=== PATIENT | male | born 1955 | race Caucasian/White ===

== ENCOUNTER 2018-11-08 18:10 | Emergency (ER) | payer BC ==
[2018-11-08 18:21] VITALS: RESP 18
[2018-11-08] MEDS ORDERED: DIPH,PERTUS(ACELL)TETVAC-LF 0.5 ML VIAL IM ONE (18:57)
[2018-11-08] MEDS ORDERED: LIDOCAINE 1% INJ 10MG/ML (20 ML MDV) SQ ONE (18:57)
--- NOTE | 2018-11-08 19:01 | ED ---
Wound/Laceration HPI - General Chief Complaint: Wound/Laceration Stated Complaint: rt hand laceration Time Seen by Provider: 11/08/18 18:43 Source: patient Mode of arrival: ambulatory Limitations: no limitations - History of Present Illness Initial Comments: 63-year-old male patient presents to the emergency department today for evaluation of laceration to the right palm. Patient states he was pushing down trash in his recycle than when he cut his hand on a broken bulb. This occurred around 6 PM. Patient states he was having difficulty getting the bleeding to stop however this did cease after holding pressure. He denies any numbness or tingling to the hand. Denies any difficulty with range of motion to the fingers or wrist. Denies any use of anticoagulant or antiplatelet medications. Please his last tetanus vaccine was 6-7 years ago. Patient denies any headache, neck pain, back pain, chest pain, shortness of breath, dizziness, weakness, abdominal pain, nausea, vomiting, or difficulties with bowel movements or urination. - Related Data Allergies Allergy/AdvReac Type Severity Reaction Status Date / Time No Known Allergies Allergy Verified 11/08/18 18:20 Review of Systems ROS Statement: Those systems with pertinent positive or pertinent negative responses have been documented in the HPI. ROS Other: All systems not noted in ROS Statement are negative. Past Medical History Past Medical History: Hypertension History of Any Multi-Drug Resistant Organisms: None Reported Past Surgical History: Orthopedic Surgery Past Psychological History: No Psychological Hx Reported Smoking Status: Never smoker Past Alcohol Use History: Occasional Past Drug Use History: None Reported General Exam Limitations: no limitations General appearance: alert, in no apparent distress, other (This is a well- developed, well-nourished adult male patient in no acute distress. Vital signs upon presentation are temperature 98.4F, pulse 66, respirations 18, blood pressure 129/80, pulse ox 99% on room air.) Respiratory exam: Present: normal lung sounds bilaterally. Absent: respiratory distress, wheezes, rales, rhonchi, stridor Cardiovascular Exam: Present: regular rate, normal rhythm, normal heart sounds. Absent: systolic murmur, diastolic murmur, rubs, gallop, clicks Extremities exam: Present: full ROM, normal capillary refill, other (Patient has 5 cm laceration noted over the hyperthenar eminence on the right hand. Bleeding is controlled. No evidence for foreign body. Skin is pink, warm, dry. Cap refills less than 3 seconds. Radial pulses 2+ and equal bilaterally.). Absent: normal inspection, tenderness, pedal edema, joint swelling, calf tenderness Neurological exam: Present: alert, oriented X3, CN II-XII intact Psychiatric exam: Present: normal affect, normal mood Skin exam: Present: warm, dry, intact, normal color. Absent: rash Course Vital Signs 11/08/18 11/08/18 18:18 19:50 Temperature 98.4 F 98.3 F Pulse Rate 66 71 Respiratory 18 18 Rate Blood Pressure 129/80 123/56 O2 Sat by Pulse 99 99 Oximetry Procedures - Laceration Laceration #1 Consent Obtained: verbal consent Indication: laceration Site: hand (Right) Size (cm): 5 Description: linear Depth: simple, single layer Anesthetic Used: lidocaine 1% Anesthesia Technique: local infiltration Amount (mls): 6 Pre-repair: irrigated extensively Type of Sutures: nylon Size of Sutures: 5-0 Number of Sutures: 9 Technique: simple, interrupted Patient Tolerated Procedure: well, no complications Medical Decision Making - Medical Decision Making 63-year-old male patient presents to the emergency department today for evaluation of laceration to the right hand. Physical examination did reveal 5 cm laceration to the hyperthenar eminence. Wound was cleansed, irrigated. Repaired as documented. Bacitracin and dressing applied. Patient is instructed to return in 7 days for suture removal. Education was given regarding wound care and signs of infection. He is instructed to follow-up with his primary care physician for recheck in 1-2 days. Return parameters were discussed in detail. He verbalizes understanding and agrees with this plan. Disposition Clinical Impression: Laceration of right hand Disposition: HOME SELF-CARE Condition: Good Instructions (If sedation given, give patient instructions): Care For Your Stitches (ED), Laceration (ED) Additional Instructions: Cleanse wound twice daily with warm water and antibacterial soap. Do not submerge in water. Monitor for signs or symptoms of infection including but not limited to redness, swelling, drainage of pus, fever, or chills. Return to the emergency department in 7 days to have your stitches removed. Follow-up with your primary care physician for recheck in 1-2 days. Return to the emergency department for any other new, worsening, or concerning symptoms. Is patient prescribed a controlled substance at d/c from ED?: No Referrals: Landry White MD [Primary Care Provider] - 1-2 days Time of Disposition: 19:38
[2018-11-08 20:39] VITALS: BP 123/56; PULSE 71; TEMP 98.3
== END 2018-11-08 19:50 | disposition home or self-care (01) ==
LOC: EC 18:10
DX: S61.411A Laceration without foreign body of right hand, initial encounter (principal); Z23 Encounter for immunization; W26.8XXA Contact with other sharp object(s), not elsewhere classified, initial encounter; Y93.89 Activity, other specified; Y92.009 Unspecified place in unspecified non-institutional (private) residence as the place of occurrence of the external cause
CPT/HCPCS: 90715; 99282; 12002; 90471; J2001

== ENCOUNTER → 2021-09-21 | Outpatient (CLI) | payer BC ==
--- NOTE | 2021-09-21 14:40 | P.SLEEP ---
History of Present Illness DATE: 09/21/2021 CONSULTATION/NEW PATIENT EVALUATION HISTORY OF PRESENT ILLNESS/SLEEP-WAKE EVALUATION: 66year old gentleman had been evaluated in the sleep center for obstructive sleep apnea hypopnea syndrome. Patient has history of obstructive sleep apnea which was diagnosed in 2010 in our institution. Since that time patient is on treatment with CPAP and he continued treatment every night for the whole night. I checked his CPAP unit CPAP pressure is 8 cm of water uses his 100% of 9 nights for more than 4 hours. Average usage 7.6 hours per night, Lasix 32 L/m slightly high. Apnea-hypopnea index is 1.7 which is normal. Previously so patient in December 2014 SLEEP SCHEDULE: Usually sleep schedule on weekdays 10 PM to 5 AM, during days off 10 PM to 7 AM. FALLING ASLEEP: No problems with falling asleep, although patient has TV set and bedroom. DURING SLEEP: Patient usually sleeps on the back position. No snoring with CPAP. He may wake up from sleep up to 2 times with nocturia. No history of hypnogogical hallucinations, sleep paralysis, or cataplexy. DURING THE DAY/WAKE STATE: No sleepiness during the day. [place] sleepiness scale is 1. Patient doesn't take naps. PAST MEDICAL HISTORY: Episodes of increasing blood pressure PAST SURGICAL HISTORY: Right hip replacement, history of hernia repair , Arthroscopic knee surgery MEDICATIONS: Triamterenehydrochlorothiazide SOCIAL HISTORY: Negative for smoking, alcohol consumption occasional. FAMILY HISTORY: Sinus headaches REVIEW OF SYSTEMS: Occasional awakenings from sleep. No fevers. No double vision. No recent chest pain. No shortness of breath. No abdominal pain. No bleeding episodes. No blood in urine. No seizure episodes. PHYSICAL EXAMINATION: GENERAL: A pleasant patient without any distress. VITAL SIGNS: BP 142/86, HR 92, RR 16, weight 223.2 pounds, height 6 foot 4 inches, body mass index 27.1. HEENT: PERRLA, EOMI. Evaluation of oropharynx showed tongue protrudes midline, low position of soft palate Mallampati 4. NECK: Supple. No JVD. Thyroid is not palpable. 18-1/4 inches in circumference. LUNGS: Clear to percussion and to auscultation. Good air exchange. No wheezing or rhonchi. HEART: S1, S2 regular. No murmurs, gallops or rubs. ABDOMEN: Soft and nontender. Bowel sounds are present. No organomegaly appreciated. EXTREMITIES: No clubbing or cyanosis. BREAK OUT WORKER: Awake, alert, and oriented x3. Cranial nerves 2 to 7 intact. There is no fasciculation or atrophy noted. No focal deficits observed. ASSESSMENT: 1. Obstructive sleep apnea-hypopnea syndrome for more than 10 years patient demonstrated great compliance with treatment. Normal respiration on CPAP. 2. Status post right hip replacement. 3 status post hernia repair. 4. Status post arthroscopic knee surgery. 5 slightly increasing blood pressure. PLAN: 1. Patient will continue to use CPAP every night for the whole night. 2. Prescription for CPAP supplies including nasal pillow mask, tube, filters. 3. Preferable position during sleep on the side. 4. No driving if patient feels any sleepiness. Patient is aware of civil and criminal liability for unsafe driving. 5. Sleep hygiene with regular sleep time for at least 7.5-8 hours. 6. Watching weight. 7. Follow-up visit in 6 months Thank you very much for allowing me to participate in management of your patient Sincerely, Eliud Campoverde MD, PhD, FAASM. Diplomat of [place] [employer], Sleep Medicine Board by [place] [employer] [place] [employer] Supervisor of [facility] [place] Past Medical History Past Medical History: Hypertension History of Any Multi-Drug Resistant Organisms: None Reported Past Surgical History: Orthopedic Surgery Past Psychological History: No Psychological Hx Reported Past Alcohol Use History: Occasional Past Drug Use History: None Reported Medications and Allergies Allergies Allergy/AdvReac Type Severity Reaction Status Date / Time No Known Allergies Allergy Verified 11/08/18 18:20 Sleep Note - Sleep Note Sleep Note: Temperature: Pulse Rate: Respiratory Rate: Blood Pressure: SpO2: Height: Weight: BMI: Neck Circumference:
== END | disposition home or self-care (01) ==
LOC: SLEEP 13:16
PROVIDERS: ATTEND Internal Medicine
DX: Z53.9 Procedure and treatment not carried out, unspecified reason (principal)

== ENCOUNTER → 2022-01-12 | Outpatient (CLI) | payer BC ==
[2022-01-12 11:31] LABS: Partial Thromboplastin Time 26.1 sec (22.0-30.0); Prothrombin Time 10.6 sec (9.0-12.0)
--- NOTE | 2022-01-12 12:18 | XR ---
EXAMINATION TYPE: XR chest 2V DATE OF EXAM: 01/12/2022 COMPARISON: NONE HISTORY: Shortness of breath TECHNIQUE: Frontal and lateral views of the chest are obtained. FINDINGS: Scattered senescent parenchymal changes noted. Hyperinflation compatible with COPD. No evidence for infiltrate. No evidence for atelectasis. Heart size is stable. Mediastinal structures are stable and grossly unremarkable. No evidence for hilar prominence. Degenerative changes dorsal spine. IMPRESSION: 1. No evidence for acute pulmonary disease.
--- NOTE | 2022-01-12 13:52 | P.PN ---
Progress Note - Text Progress Note Date: 01/12/22 5 meter walk test completed without difficulty: #1 3.47 sec #2 3.0 sec #3 3.13 sec STS risk score was calculated and discussed with patient
[2022-01-12 14:16] LABS: HCT 44.9 % (39.6-50.0); HGB 14.8 g/dL (13.0-17.0); MCH 29.5 pg (27.0-32.0); MCV 89.4 fL (80.0-97.0); Mean Platelet Volume 10.9 fL (9.5-12.2); NRBC Per 100 WBC 0 /100 WBCS (0.0-0.0); Platelet Count 222 X 10*3/uL (140-440); RBC 5.02 X 10*6/uL (4.40-5.60); RDW 11.9 % (11.5-14.5); WBC 6.44 X 10*3/uL (4.50-10.00)
[2022-01-12 14:32] LABS: ALT 28 U/L (10-49); AST 29 U/L (14-35); African American GFR (CKD) 80.6 (60.0-200.0); Albumin 4.6 g/dL (3.8-4.9); Alkaline Phosphatase 71 U/L (41-126); BUN/Creat Ratio 21.91 Ratio (12.00-20.00); Blood Urea Nitrogen 24.1 mg/dL (9.0-27.0); Carbon Dioxide 27.7 mmol/L (20.0-27.5); Chloride 105 mmol/L (96-109); Chol/HDL Ratio 2.66 Ratio; Globulin 2.7 g/dL (1.6-3.3); Glucose 99 mg/dL (70-110); LDL Cholesterol,Calculated 41.1 mg/dL (0.0-131.0); Non-African American GFR(CKD) 69.6 (60.0-200.0); Potassium 4.4 mmol/L (3.5-5.5); Sodium 144 mmol/L (135-145); Total Protein 7.3 g/dL (6.2-8.2)
[2022-01-12 14:57] LABS: Hepatitis A Antibody IgM Nonreactive (Nonreactive); Hepatitis B Core IgM Nonreactive (Nonreactive); Hepatitis B Surface Antigen Nonreactive (Nonreactive); Hepatitis C IgG Antibody Nonreactive (Nonreactive)
--- NOTE | 2022-01-15 22:58 | US ---
EXAMINATION TYPE: US vein mapping BILAT DATE OF EXAM: 01/12/2022 11:48 AM COMPARISON: NONE CLINICAL HISTORY: Preopen heart surgery. SIDE PERFORMED: Bilateral TECHNIQUE: Lower extremity saphenous vein is examined and measured utilizing real time linear array sonography. DUPLEX FINDINGS: Greater Saphenous: Color flow seen Measurements in mm: Right Greater Saphenous: Groin: 4.8 x 4.1 mm High Thigh: 5.3 x 4.4 mm Mid Thigh: 7.1 x 5.4 mm Above Knee: 6.1 x 4.1 mm Knee: 6.8 x 3.9 mm Below Knee: 7.0 x 4.8 mm Mid Calf: 5.1 x 3.3 mm At Ankle: 4.6 x 3.5 mm Left Greater Saphenous: Groin: 5.0 x 5.1 mm High Thigh: 5.9 x 3.7 mm Mid Thigh: 4.1 x 2.9 mm Above Knee: 3.7 x 2.2 mm Knee: 4.2 x 2.5 mm Below Knee: 3.2 x 2.6 mm Mid Calf: 3.7 x 2.5 mm At Ankle: 4.2 x 2.5 mm IMPRESSION: 1. Bilateral GSV measurements listed above. 2. Performing surgeon to determine viability as conduit.
--- NOTE | 2022-01-15 22:59 | US ---
EXAMINATION TYPE: Pre-Operative Non-Invasive Evaluation of the hand for Potential Radial Artery Jose kearney, Measurements only DATE OF EXAM: 01/12/2022 11:48 AM CLINICAL HISTORY: OPEN HEART. Preopen heart surgery SIDE PERFORMED: Bilateral TECHNIQUE: Radial artery is measured utilizing real time linear array sonography. Dominant hand: Duplex Findings: Radial Artery: Color flow seen Measurements in mm, transverse view: Right Radial: Proximal: 5.0 x 4.0 mm Mid: 3.8 x 3.3 mm Distal: 3.8 x 2.9 mm Left Radial: Proximal: 5.2 x 4.3 mm Mid: 2.3 x 2.2 mm Distal: 2.7 x 2.5 mm IMPRESSION: 1. Bilateral radial artery measurements listed above. 2. Performing surgeon to determine viability as conduit.
--- NOTE | 2022-01-16 11:00 | US ---
EXAMINATION TYPE: US arterial LE single level DATE OF EXAM: 01/12/2022 11:19 AM CLINICAL HISTORY: OPEN HEART. History of hypertension and hyperlipidemia. Ankle-Brachial Indices: Right: 1.20 Left: 1.25 Toe Brachial Indices: Right: 0.93 Left: 1.14 IMPRESSION: Normal VIMAL and TBI values.
== END | disposition home or self-care (01) ==
LOC: LABWHC1 08:55
PROVIDERS: ATTEND Thoracic Surgery (Cardiothoracic Vascular Surgery)
DX: I25.10 Atherosclerotic heart disease of native coronary artery without angina pectoris (principal)
CPT/HCPCS: 36415; 71046; 80053; 80061; 80074; 83036; 83735; 84443; 85027; 85610; 85730; 87070; 87086; 93922; 93930; 93970; 94150

== ENCOUNTER 2022-01-15 09:21 | Inpatient (IN) | payer BC ==
[~2022-01-15 09:21] MED LIST: ALBUMIN HUMAN 25% 50 ML IV ONE; ALBUMIN HUMAN 5% 500 ML IVPB ONE; ASPIRIN 325 MG TAB PO ONE; ATORVASTATIN 10 MG TAB PO ONE; CALCIUM CHLORIDE 100 MG/ML 10 ML SYRINGE IV ONE; CARDIOPLEGIC SOLN (K+ 16 MEQ/L 1,000 ML with SODIUM BICARB (1 MEQ/ML) 20 ML, LIDOCAINE ... PERFUSION ONE; CHLORHEXIDINE GLUCONATE 15 ML CUP MUCOUS MEM ONE; CLEVIDIPINE BUTYRATE 25 MG in EMPTY BAG 1 BAG IV ONE; DILTIAZEM 125 MG in SODIUM CHLORIDE 0.9% 100 ML IV ONE; HEPARIN SODIUM 1,000 UN/ML (10ML VL) IV ONE; HEPARIN SODIUM,PORCINE 5,000 UNIT in SODIUM CHLORIDE 0.9% 500 ML 500 ML IV ONE; INSULIN REGULAR 100 UNIT in SODIUM CHLORIDE 0.9% 100 ML IV ONE; LACTATED RINGERS 1,000 ML IV ONE; MAGNESIUM SULFATE 16.24 MEQ in EMPTY SYRINGE 1 SYR IV ONE; MANNITOL 25% 12.5 GM/50 ML VIAL IV ONE; METOPROLOL TARTRATE 12.5 MG TAB PO ONE; NITROGLYCERIN SL TABS 0.4 MG TAB SUBLINGUAL ONE; NITROGLYCERIN-D5W PMX 25 MG/250 ML BTL IV ONE; NITROGLYCERIN-D5W PMX 50 MG in DEXTROSE/WATER 1 250ML.BAG IV ONE; NOREPINEPHRINE 4 MG in SODIUM CHLORIDE 0.9% 250 ML IV ONE; PAPAVERINE 360 MG in SODIUM CHLORIDE 0.9% 90 ML IV ONE; PHENYLEPHRINE 10 MG/ML VIAL IV ONE; PHENYLEPHRINE 40 MG in SODIUM CHLORIDE 0.9% 250 ML IV ONE; PROTAMINE SULFATE 10 MG/ML 25 ML VIAL IV ONE; PROTAMINE SULFATE 250 MG in EMPTY BAG 1 BAG IV ONE; SODIUM BICARB 8.4% 50 ML SYR (1 MEQ/ML) IV ONE; SODIUM CHLORIDE 0.9% 1,000 ML IV ONE; TRANEXAMIC ACID 2,000 MG in SODIUM CHLORIDE 0.9% 80 ML IV ONE; ceFAZolin 1,000 MG in SODIUM CHLORIDE 0.9% IRRIGATIO 1,000 ML IRRIGATION ONE; propofoL 1,000 MG/100 ML VIAL IV ONE
[2022-01-15] MEDS ORDERED: LACTATED RINGERS 1,000 ML IV ONE (09:48)
--- NOTE | 2022-01-15 13:17 | P.ANPRN ---
Procedure Note - Anesthesia - Invasive Line Right Arterial Line Time Out Performed: Yes Date of Procedure: 01/15/22 Time of Procedure: 12:05 Location of Patient: PreOp Preparation: Sterile Prep, Sterile Dressing Arterial Line Location: Radial Ultrasound Used: Yes Purpose - Visualization and Identification of Vasculature: Yes Needle Guage: 20 Image Stored and Saved: Yes Narrative: Right radial arterial line placed using Seldinger technique. Right Central Line Time Out Performed: Yes Date of Procedure: 01/15/22 Time of Procedure: 11:55 Location of Patient: PreOp Preparation: Sterile Prep, Sterile Dressing Ultrasound Used: Yes Purpose - Visualization and Identification of Vasculature: Yes Needle Guage: 18 Image Stored and Saved: Yes Narrative: Central line placement per sterile protocol utilized. Right [place] Nita Time Out Performed: Yes Date of Procedure: 01/15/22 Time of Procedure: 12:05 Location of Patient: PreOp Preparation: Sterile Prep, Sterile Dressing Ultrasound Used: No Purpose - Visualization and Identification of Vasculature: No Narrative: [place] nita catheter placed after central line. All ports flushed and balloon tested. Catheter advanced until RV and PA waveform obtained. Balloon deflated and line secured @ 46 cm
[2022-01-15] MEDS ORDERED: VECURONIUM 10 MG VIAL IV ONE (13:58)
[2022-01-15] MEDS ORDERED: ceFAZolin 1,000 MG VIAL ONE (13:58)
[2022-01-15] MEDS ORDERED: ALBUMIN HUMAN 5% (25gm) 500 ML VIAL IVPB ONE (13:58)
[2022-01-15] MEDS ORDERED: ePHEDrine 50 MG/ML 1 ML VIAL ONE (13:58)
[2022-01-15] MEDS ORDERED: SODIUM CHLORIDE 0.9% IRRIG 1,000 ML BTL IRRIGATION ONE (13:58)
[2022-01-15] MEDS ORDERED: PROPOFOL 10 MG/ML 20 ML VIAL IV ONE (13:58)
[2022-01-15] MEDS ORDERED: GLYCOPYRROLATE 0.2 MG/ML 2 ML VIAL ONE (13:58)
[2022-01-15] MEDS ORDERED: MIDAZOLAM HCL 10 MG/10 ML VIAL ONE (13:58)
[2022-01-15] MEDS ORDERED: fentaNYL (PF) 50 MCG/ML 50 ML VIAL ONE (13:58)
[2022-01-15] MEDS ORDERED: SODIUM CHLORIDE 0.9% 100 ML BAG ONE (13:58)
[2022-01-15 14:49] LABS: ABG Base Excess 1.4 mmol/L; ABG Glucose Whole Blood 93 mg/dL (75-99); ABG HCO3 25 mmol/L (21-25); ABG Hematocrit 41 % (34.0-46.0); ABG Ionized Calcium 4.8 mg/dL (4.5-5.3); ABG Lactic Acid Whole Blood 0.8 mmol/L (0.5-1.6); ABG PCO2 35 mmHg (35-45); ABG PH 7.46 (7.35-7.45); ABG Potassium Whole Blood 3.7 mmol/L (3.4-4.5); ABG Sodium Whole Blood 140 mmol/L (135-146); ABG TCO2 26 mmol/L (19-24)
[2022-01-15] MEDS ORDERED: ceFAZolin 1,000 MG in SODIUM CHLORIDE 0.9% 1,000 ML IRRIGATION ONE (15:10)
[2022-01-15] MEDS ORDERED: SODIUM CHLORIDE 0.9% 500 ML 500 ML with HEPARIN SODIUM,PORCINE 5,000 UNIT IV ONE ×2 (15:10)
[2022-01-15] MEDS ORDERED: PAPAVERINE 360 MG in SODIUM CHLORIDE 0.9% 90 ML IV ONE (15:10)
[2022-01-15 15:41] LABS: ABG Base Excess 0.7 mmol/L; ABG Glucose Whole Blood 110 mg/dL (75-99); ABG HCO3 26 mmol/L (21-25); ABG Hematocrit 41 % (34.0-46.0); ABG Ionized Calcium 4.8 mg/dL (4.5-5.3); ABG Lactic Acid Whole Blood 0.8 mmol/L (0.5-1.6); ABG Oxygen Saturation 99.9 % (94-97); ABG PCO2 43 mmHg (35-45); ABG PH 7.39 (7.35-7.45); ABG Potassium Whole Blood 3.8 mmol/L (3.4-4.5); ABG Sodium Whole Blood 140 mmol/L (135-146); ABG TCO2 27 mmol/L (19-24)
[2022-01-15 16:36] LABS: ABG Base Excess -0.9 mmol/L; ABG Glucose Whole Blood 109 mg/dL (75-99); ABG HCO3 23 mmol/L (21-25); ABG Hematocrit 36 % (34.0-46.0); ABG Ionized Calcium 4.6 mg/dL (4.5-5.3); ABG Oxygen Saturation 99.7 % (94-97); ABG PCO2 36 mmHg (35-45); ABG PH 7.42 (7.35-7.45); ABG PO2 268 mmHg (83-108); ABG Potassium Whole Blood 3.6 mmol/L (3.4-4.5); ABG Sodium Whole Blood 141 mmol/L (135-146); ABG TCO2 24 mmol/L (19-24)
[2022-01-15 17:09] LABS: ABG Base Excess -1.1 mmol/L; ABG Glucose Whole Blood 108 mg/dL (75-99); ABG HCO3 23 mmol/L (21-25); ABG Hematocrit 32 % (34.0-46.0); ABG Ionized Calcium 4.5 mg/dL (4.5-5.3); ABG Lactic Acid Whole Blood 1.2 mmol/L (0.5-1.6); ABG Oxygen Saturation 99.5 % (94-97); ABG PCO2 35 mmHg (35-45); ABG PH 7.42 (7.35-7.45); ABG PO2 229 mmHg (83-108); ABG Potassium Whole Blood 3.6 mmol/L (3.4-4.5); ABG Sodium Whole Blood 141 mmol/L (135-146); ABG TCO2 24 mmol/L (19-24)
[2022-01-15 17:30] LABS: ABG PO2 >420 mmHg (83-108)
[2022-01-15 17:32] LABS: ABG PO2 >420 mmHg (83-108)
[2022-01-15] MEDS ORDERED: ALBUMIN HUMAN 5% 250 ML IVPB ONE (18:03)
--- NOTE | 2022-01-15 18:05 | P.ANPRN ---
Procedure Note - Anesthesia - MARIN Intraop Pre Bypass MARIN Intraop - Anesthesia Indication: CAD + MR Date of Procedure: 01/15/22 Pre-operative Diagnosis: CAD Post-operative Diagnosis: same Surgeon: Poli Watt Left Ventricle: EF 50% Regional Wall Motion Abnormalities: None Left Ventricle Hypertrophy: No R. Ventricle Function: Normal Anatomy: Trileaflet Aortic Stenosis: None Aortic Regurgitation: None Mitral Stenosis: None Mitral Regurgitation: Trace Tricuspid Stenosis: None Tricuspid Regurgitation: None Pulmonic Stenosis: None Pulmonic Regurgitation: None R. Atrial Dilation: No R. Atrial PFO: No L. Atrial Dilation: No Aortic Dissection: No Aortic Calcification: Mild Plural Effusion: None - MARIN Intraop Post Bypass MARIN Intraop Post Bypass Procedure Performed: CABG x 4 Left Ventricle: EF 60% Ejection Fraction: Normal Regional Wall Motion Abnormalities: None R. Ventricle Function: Normal Aortic Valve: Unchanged Mitral Valve: Unchanged Tricuspid: Unchanged Pulmonic: Unchanged Aortic Dissection: No
[2022-01-15] MEDS ORDERED: METOCLOPRAMIDE 5 MG/ML 2 ML VIAL IVP PRN (18:10)
[2022-01-15] MEDS ORDERED: NITROGLYCERIN-D5W PMX 50 MG in DEXTROSE/WATER 1 250ML.BAG IV SCH (18:10)
[2022-01-15] MEDS ORDERED: DEXTROSE 5% IN WATER 100 ML with AMIODARONE 150 MG IV PRN (18:10)
[2022-01-15] MEDS ORDERED: ONDANSETRON 4 MG/2 ML VIAL IVP PRN (18:10)
[2022-01-15] MEDS ORDERED: hydrALAZINE HCL 20 MG/ML 1 ML VIAL IVP PRN (18:10)
[2022-01-15] MEDS ORDERED: CLEVIDIPINE BUTYRATE 25 MG in EMPTY BAG 1 BAG IV SCH (18:10)
[2022-01-15] MEDS ORDERED: IPRATROPIUM-ALBUTEROL 3 ML NEB INHALATION PRN (18:10)
[2022-01-15] MEDS ORDERED: INSULIN REGULAR 100 UNIT in SODIUM CHLORIDE 0.9% 100 ML IV SCH (18:10)
[2022-01-15] MEDS ORDERED: DEXMEDETOMIDINE/0.9% NACL(PMX) 400 MCG in EMPTY BAG 1 BAG IV SCH (18:10)
[2022-01-15] MEDS ORDERED: Magnesium Replacement Protocol 1 EACH MISC MISCELLANE PRN (18:10)
[2022-01-15] MEDS ORDERED: BENZOCAINE/MENTHOL LOZENG 1 EACH LOZENGE MUCOUS MEM PRN (18:10)
[2022-01-15] MEDS ORDERED: DILTIAZEM 125 MG in SODIUM CHLORIDE 0.9% 100 ML IV SCH (18:10)
[2022-01-15] MEDS ORDERED: Potassium Replacement Protocol 1 EACH MISC MISCELLANE PRN (18:10)
[2022-01-15] MEDS ORDERED: DEXTROSE 50% SYRINGE 50 ML IVP PRN ×2 (18:10)
--- NOTE | 2022-01-15 18:21 | P.OP ---
Date of Procedure: 01/15/22 Preoperative Diagnosis: Coronary artery disease Postoperative Diagnosis: Same Procedure(s) Performed: Off-pump coronary artery bypass grafting 4 with SCHREIBER to LAD, left radial artery to obtuse marginal, SVG to first diagonal, SVG to the EEA with ligation on the left atrial appendage with a 35 mm AtriCure clip and endovascular vein harvest of the left greater saphenous vein, endovascular harvest of the left radial artery Implants: 35mm AtriCure clip Anesthesia: GETA Surgeon: Poli Watt Barrel Rifler Operator #1: Rene Stuart Estimated Blood Loss (ml): 400 IV fluids (ml): 1,500 Urine output (ml): 500 Pathology: none sent Condition: stable Disposition: ICU Indications for Procedure: 66-year-old male presents with anginal symptomatology positive stress testing. Underwent cardiac catheterization by Dr. Gilbert. This demonstrated severe three- vessel coronary artery disease and coronary bypass was requested. Patient was seen electively in the office and scheduled electively. Operative Findings: Coronary targets were reasonable. There was diffuse disease in the left system. Second obtuse marginal was small and diseased and really directly alongside the first obtuse marginal. Was decided to skip this graft. Second diagonal branch was very small. It was decided to skip this graft. LAD was grafted beyond the palpable disease after the takeoff of the second diagonal branch. MARIN demonstrated good ventricular function and normal valvular function both pre-and postoperatively. Description of Procedure: Patient was brought to the operating room, placed supine on the operating table, anesthetized and intubated. The anterior torso bilateral lower extremities and left upper extremity were sterilely prepped and draped. Left greater saphenous vein was harvested from the left thigh with endovascular technique. Left radial artery was harvested from the left forearm with endovascular technique. Simultaneously a midline sternotomy was performed. The left hemisternum was retracted upwards and the left internal mammary artery harvested on a vascularized pedicle. His left intact on its origin from the subclavian and divided distally. It was a good conduit. Left pleural space was drained with a 32-Tajik chest tube. Standard sternal retractor was placed. The pericardium was opened in the midline and the heart exposed with pericardial sutures. Patient was systemically heparinized and ACTs were maintained greater than 250 during grafting. 35mm AtriCure clip was applied to the base of the left atrial appendage. The SCHREIBER was tunneled into the pericardial space.. SCHREIBER was anastomosed to the mid LAD after the palpable disease. The LAD was stabilized and opened. Blood flow was controlled with a 1.5 mm flow through. It was a 1.75-2 mm vessel. End-to-side anastomosis between the SCHREIBER and the LAD was performed with running 8-0 Prolene suture. On completion anastomosis the flow through was removed effectively probing the proximal distal portion of the anastomosis. Inflow was open and good hemostasis was noted. The yu filled well and there was no kinking or narrowing. ZAIN pedicle was tacked surrounding epicardium with 6-0 silk. Next the first diagonal was stabilized and explored. It was opened and blood flow control with a 1.5 mm flow through. It was a 1.5 mm vessel. Saphenous vein was anastomosed in end-to-side fashion with running 7-0 Prolene suture. On completion of the anastomosis the flow through was removed effectively probing the proximal and distal portion of the anastomosis. Suture was tied with good resultant hemostasis. The vein was passed under the SCHREIBER and brought to the ascending aorta and cut to appropriate length. Backbleeding was controlled with a bulldog clamp. The inferior wall the heart was exposed. Posterior descending branch was stabilized and opened proximally. It was a 1.5 mm vessel. Blood flow was controlled 1.5 mm flow through. Anas tomosis of the second portion of saphenous vein to the PDA was performed with running 7-0 Prolene suture. On completion anastomosis the flow through was removed effectively probing the proximal distal portion anastomosis. Suture was tied with good resultant hemostasis. Good backbleeding was noted in the vein graft. Heart was lowered into anatomic position and vein cut to appropriate length to reach the ascending aorta. Backbleeding was controlled with bulldog clamp. Lateral wall the heart was now exposed. Major marginal branch was a 1.5-2 mm vessel with diffuse disease present. A soft spot was identified in its midportion. Was opened here and end-to-side anastomosis with the radial artery was performed with 7-0 Prolene suture. Blood flow was controlled by 1.5 mm flow through. On completion anastomosis the flow through was removed effectively probing the proximal distal portion of the anastomosis. Suture was tied with good resulttant hemostasis. Heart was lowered into anatomic position. Radial artery was brought beneath the SCHREIBER to the ascending aorta and cut to appropriate length. Blood pressure was controlled by anesthesia and a partial occlusion clamp was placed on the ascending aorta. 34 mm punch holes were created in the ascending aorta and 3 proximal anastomosis constructed with running 6-0 Prolene suture. On completion of the proximal anastomoses, they we re de-aired by backbleeding and needle holes and the inflow was open. Hemostasis was noted at all anastomoses. Heparin was reversed with protamine. Chest was irrigated with antibiotic solution. The mediastinum was drained with 36-Tajik chest tube. Sternum was closed with 8 sternal wires. Subcutaneous and subcuticular layers in the chest arm and leg were closed with layers of Vicryl suture. Dry sterile dressings were applied. Patient was transferred to the ICU in stable condition. No inotropic support or blood transfusions were required.
[2022-01-15] MEDS: LACTATED RINGERS 1,000 ML IV SCH (18:35)
[2022-01-15 18:38] LABS: Glucose,Whole Blood 118 mg/dL (70-110)
[2022-01-15] MEDS: ACETAMINOPHEN IV (For NPO) 1,000 MG in EMPTY BAG 1 BAG IVPB SCH (18:43)
[2022-01-15 19:05] LABS: Basophils % (A) 0 %; Eosinophils # (A) 0.1 k/uL (0-0.7); Eosinophils % (A) 1 %; HCT 29.5 % (39.0-53.0); HGB 10.3 gm/dL (13.0-17.5); Lymphocytes # (A) 1.1 k/uL (1.0-4.8); Lymphocytes % (A) 11 %; MCH 30.1 pg (25.0-35.0); MCHC 34.9 g/dL (31.0-37.0); MCV 86.2 fL (80.0-100.0); Monocytes # (A) 0.5 k/uL (0-1.0); Monocytes % (A) 4 %; Neutrophils # (A) 8.6 k/uL (1.3-7.7); Neutrophils % (A) 83 %; Platelet Count 144 k/uL (150-450); RBC 3.42 m/uL (4.30-5.90); RDW 12.2 % (11.5-15.5); WBC 10.4 k/uL (3.8-10.6)
[2022-01-15] MEDS: IPRATROPIUM-ALBUTEROL 3 ML NEB INHALATION SCH (19:07)
[2022-01-15 19:08] LABS: Glucose,Whole Blood 122 mg/dL (70-110)
--- NOTE | 2022-01-15 19:08 | XR ---
EXAMINATION TYPE: XR chest 1V portable DATE OF EXAM: 01/15/2022 6:49 PM COMPARISON: Chest radiographs from 01/12/2022 TECHNIQUE: XR chest 1V portable Portable AP radiograph of the chest. CLINICAL INDICATION:Male, 66 years old with history of Post Operative Cardiac Surgery; FINDINGS: Lungs/Pleura: There is no evidence of pleural effusion, focal consolidation, or pneumothorax. Pulmonary vascularity: Unremarkable. Heart/mediastinum: Cardiomediastinal silhouette is unremarkable. Left atrial appendage occlusion [place] ce is present. Musculoskeletal: No acute osseous pathology. Other findings: None Lines/Tubes: Endotracheal tube with distal tip 2.1 cm above the gloria Nasogastric tube with its distal tip and side-port projecting under the diaphragm. Left thoracotomy tube is present without evidence of pneumothorax. Drainage tubes with tips projecting over the mediastinum. There is a [place]-Nita catheter with tip projecting over the spine. IMPRESSION: Postsurgical changes lines and tubes as described above. No evidence of pneumothorax.
[2022-01-15 19:10] LABS: Ionized Calcium 4.8 mg/dL (4.5-5.3)
[2022-01-15 19:14] LABS: ABG Base Excess -1.8 mmol/L; ABG HCO3 24 mmol/L (21-25); ABG PCO2 47 mmHg (35-45); ABG PH 7.32 (7.35-7.45); ABG PO2 374 mmHg (83-108); ABG TCO2 26 mmol/L (19-24); Allen Test Performed? Yes
[2022-01-15 19:18] LABS: ALT 18 U/L (4-49); AST 23 U/L (17-59); African American GFR (CKD) >90 (>60 ml/min/1.73 sqM); Albumin 3.6 g/dL (3.5-5.0); Alkaline Phosphatase 42 U/L (38-126); Anion Gap 6 mmol/L; Blood Urea Nitrogen 22 mg/dL (9-20); Carbon Dioxide 23 mmol/L (22-30); Chloride 109 mmol/L (98-107); Glucose 109 mg/dL (74-99); Magnesium 1.5 mg/dL (1.6-2.3); Non-African American GFR(CKD) >90 (>60 ml/min/1.73 sqM); Potassium 3.6 mmol/L (3.5-5.1); Sodium 138 mmol/L (137-145); Total Protein 5.3 g/dL (6.3-8.2)
[2022-01-15 19:20] LABS: INR 1.2 (<1.2); Partial Thromboplastin Time 30.2 sec (22.0-30.0); Prothrombin Time 12.6 sec (9.0-12.0)
[2022-01-15] MEDS ORDERED: POTASSIUM CHLORIDE 20 MEQ in WATER FOR INJECTION 1 100ML.BAG IVPB STA (19:54)
[2022-01-15 19:56] LABS: Glucose,Whole Blood 144 mg/dL (70-110)
[2022-01-15] MEDS: MAGNESIUM SULFATE-D5W PMX 1 GM in DEXTROSE/WATER 1 100ML.BAG IVPB SCH ×2 (20:15→21:27)
[2022-01-15 21:02] LABS: Glucose,Whole Blood 155 mg/dL (70-110)
[2022-01-15 22:11] LABS: Glucose,Whole Blood 171 mg/dL (70-110)
[2022-01-15 22:24] LABS: Basophils % (A) 0 %; Eosinophils % (A) 0 %; HCT 29.7 % (39.0-53.0); HGB 10.5 gm/dL (13.0-17.5); Lymphocytes # (A) 0.8 k/uL (1.0-4.8); Lymphocytes % (A) 7 %; MCH 30.2 pg (25.0-35.0); MCHC 35.3 g/dL (31.0-37.0); MCV 85.7 fL (80.0-100.0); Mean Platelet Volume 9.8; Monocytes # (A) 0.6 k/uL (0-1.0); Monocytes % (A) 6 %; Neutrophils % (A) 85 %; Platelet Count 145 k/uL (150-450); RBC 3.47 m/uL (4.30-5.90); RDW 12.2 % (11.5-15.5); WBC 10.5 k/uL (3.8-10.6)
[2022-01-15 22:34] LABS: ABG Base Excess -0.9 mmol/L; ABG HCO3 24 mmol/L (21-25); ABG Oxygen Saturation 99.2 % (94-97); ABG PCO2 42 mmHg (35-45); ABG PH 7.37 (7.35-7.45); ABG PO2 119 mmHg (83-108); ABG TCO2 26 mmol/L (19-24); Allen Test Performed? Yes
[2022-01-15 22:54] LABS: Glucose,Whole Blood 149 mg/dL (70-110)
[2022-01-15 23:58] LABS: Glucose,Whole Blood 132 mg/dL (70-110)
[2022-01-16] MEDS: ACETAMINOPHEN IV (For NPO) 1,000 MG in EMPTY BAG 1 BAG IVPB SCH (00:07)
[2022-01-16] MEDS: HEPARIN SODIUM,PORCINE/PF 5,000 UNIT/0.5 ML SYRINGE SQ SCH ×3 (00:15→15:58)
[2022-01-16] MEDS: ATORVASTATIN 80 MG TAB PO SCH ×2 (00:15→21:28)
[2022-01-16 00:47] LABS: Basophils % (A) 0 %; Eosinophils % (A) 0 %; Lymphocytes # (A) 0.4 k/uL (1.0-4.8); Lymphocytes % (A) 4 %; MCH 31.3 pg (25.0-35.0); MCHC 36.5 g/dL (31.0-37.0); MCV 85.8 fL (80.0-100.0); Mean Platelet Volume 10.2; Monocytes # (A) 0.5 k/uL (0-1.0); Monocytes % (A) 6 %; Neutrophils # (A) 8.6 k/uL (1.3-7.7); Neutrophils % (A) 89 %; Platelet Count 153 k/uL (150-450); RDW 11.8 % (11.5-15.5); WBC 9.6 k/uL (3.8-10.6)
[2022-01-16 00:53] LABS: Glucose,Whole Blood 124 mg/dL (70-110)
[2022-01-16] MEDS: IPRATROPIUM-ALBUTEROL 3 ML NEB INHALATION SCH ×5 (00:59→20:44)
[2022-01-16 01:58] LABS: Glucose,Whole Blood 113 mg/dL (70-110)
[2022-01-16 03:04] LABS: Glucose,Whole Blood 128 mg/dL (70-110)
[2022-01-16 04:10] LABS: Glucose,Whole Blood 127 mg/dL (70-110)
[2022-01-16] MEDS: HYDROcodone/APAP 5-325MG 1 EACH TAB PO PRN ×2 (04:16→21:28)
[2022-01-16 05:05] LABS: Glucose,Whole Blood 116 mg/dL (70-110)
[2022-01-16 05:16] LABS: Basophils % (A) 0 %; Eosinophils % (A) 0 %; HCT 30.8 % (39.0-53.0); HGB 11.1 gm/dL (13.0-17.5); Lymphocytes # (A) 0.6 k/uL (1.0-4.8); Lymphocytes % (A) 7 %; MCHC 36.1 g/dL (31.0-37.0); MCV 85.8 fL (80.0-100.0); Mean Platelet Volume 10.2; Monocytes # (A) 0.6 k/uL (0-1.0); Monocytes % (A) 7 %; Neutrophils # (A) 8.2 k/uL (1.3-7.7); Neutrophils % (A) 86 %; Platelet Count 153 k/uL (150-450); RBC 3.59 m/uL (4.30-5.90); RDW 12.3 % (11.5-15.5); WBC 9.6 k/uL (3.8-10.6)
[2022-01-16 05:20] LABS: Ionized Calcium 4.9 mg/dL (4.5-5.3)
[2022-01-16 05:30] LABS: ALT 19 U/L (4-49); AST 29 U/L (17-59); African American GFR (CKD) >90 (>60 ml/min/1.73 sqM); Albumin 3.6 g/dL (3.5-5.0); Alkaline Phosphatase 41 U/L (38-126); Anion Gap 5 mmol/L; Blood Urea Nitrogen 21 mg/dL (9-20); Calcium 8.3 mg/dL (8.4-10.2); Carbon Dioxide 24 mmol/L (22-30); Chloride 106 mmol/L (98-107); Glucose 114 mg/dL (74-99); Magnesium 2.1 mg/dL (1.6-2.3); Non-African American GFR(CKD) >90 (>60 ml/min/1.73 sqM); Potassium 3.9 mmol/L (3.5-5.1); Sodium 135 mmol/L (137-145); Total Bilirubin 1.2 mg/dL (0.2-1.3); Total Protein 5.4 g/dL (6.3-8.2)
[2022-01-16] MEDS ORDERED: HYDROcodone/APAP 5-325MG 1 EACH TAB PO PRN (05:58)
[2022-01-16 05:59] LABS: Glucose,Whole Blood 108 mg/dL (70-110)
[2022-01-16] MEDS: ALBUMIN HUMAN 5% 250 ML in EMPTY BAG 1 BAG IVPB PRN ×2 (06:04→06:37)
[2022-01-16 06:13] LABS: Glucose,Whole Blood 123 mg/dL (70-110)
[2022-01-16] MEDS ORDERED: ACETAMINOPHEN TAB 325 MG TAB PO PRN (06:53)
[2022-01-16] MEDS ORDERED: POTASSIUM CHLORIDE ER 20 MEQ TAB.ER PO SCH ×2 (07:00→15:00)
--- NOTE | 2022-01-16 07:00 | XR ---
EXAMINATION TYPE: XR chest 1V portable DATE OF EXAM: 01/16/2022 5:42 AM COMPARISON: Chest radiographs from 01/15/2022. TECHNIQUE: XR chest 1V portable Frontal view of the chest. CLINICAL INDICATION:Male, 66 years old with history of Post Operative Cardiac Surgery; FINDINGS: Lungs/Pleura: There is no evidence of pleural effusion or pneumothorax. Left basilar atelectasis. Pulmonary vascularity: Unremarkable. Heart/mediastinum: Cardiomediastinal silhouette is enlarged and stable. Left atrial appendage occlus ion device is present. Musculoskeletal: No acute osseous pathology. Midline sternotomy wires are noted and stable. Lines/Tubes: Stable right IJ approach [place]-Nita catheter. Stable left thoracotomy tube. Stable mediastinal drainage tube. Interval removal of endotracheal and nasogastric tubes.. IMPRESSION: 1. Interval removal of endotracheal and nasogastric tubes. Stable remaining lines and tubes. 2. No pneumothorax. 3. Postsurgical changes.
[2022-01-16 07:04] LABS: Glucose,Whole Blood 122 mg/dL (70-110)
[2022-01-16 08:18] LABS: Glucose,Whole Blood 110 mg/dL (70-110)
[2022-01-16 08:42] VITALS: BMI 27.1
--- NOTE | 2022-01-16 08:58 | P.PN ---
Subjective Progress Note Date: 01/16/22 Principal diagnosis: Coronary artery disease. Previous medical history of hypertension, hyperlipidemia, arthritis, previous tobacco dependence, obstructive sleep apnea with home CPAP use, remote history of pneumonia, and family history of premature coronary artery disease with father diagnosed before the age of 60 POD #1 off-pump coronary artery bypass grafting 4 with left internal mammary artery to the left anterior descending artery, left radial artery to the obtuse marginal artery, reverse saphenous vein graft to the first diagonal artery, reverse saphenous vein graft to the posterior descending coronary artery, ligation of the left atrial appendage with a 35 mm AtriCure clip, endovascular vein harvest of the left greater saphenous vein and left radial artery. In traoperative transesophageal echocardiogram performed by anesthesia Postoperative acute blood loss anemia, expected given hemodilution The patient was seen and examined this morning sitting up in a recliner in the intensive care unit in no acute distress eating breakfast. He was successfully extubated last night at 22:38. Currently in sinus rhythm and hemodynamically stable on no inotropes or pressors. He was on IV nitro and Cardizem for vessel spasm prophylaxis. States pain is controlled on current medication regimen, denies shortness of breath. Currently on room air and achieving 1000 mL on his incentive spirometry. He had a relatively uneventful evening. Right internal jugular [place] says Cordis, right radial arterial line, mediastinal/left pleural chest tubes remain. No other new concerns. Objective - Vital Signs Vital signs: Vital Signs Temp 99.0 F 01/16/22 00:00 Pulse 87 01/16/22 07:23 Resp 22 01/16/22 07:00 BP 129/81 01/15/22 09:46 Pulse Ox 96 01/16/22 07:00 FiO2 40 01/15/22 21:49 Intake & Output 01/15/22 01/16/22 01/16/22 18:59 06:59 18:59 Intake Total 204 1981.123 629 Output Total 700 2085 45 Balance -496 -103.877 584 Weight 98.4 kg 100.9 kg Intake: IV 204 1368 89 ACETAMINOPHEN IV (For NPO 100 ) 1,000 mg In Empty Bag 1 bag @ 400 mls/hr IVPB Q6HR [facility] Rx#:[id number] Lactated Ringers 1,000 ml 600 50 @ 50 mls/hr IV .Q20H [facility] Rx#:[id number] Magnesium Sulfate-D5w Pmx 200 1 gm In Dextrose/Water 1 100ml.bag @ 100 mls/hr IVPB Q1H [facility] Rx#: [id number] NS Cardiac Calcs 210 30 NS Pressure Bag 108 9 Potassium Chloride 20 meq 100 In Water For Injection 1 100ml.bag @ 50 mls/hr IVPB ONCE [facility] Rx#: [id number] ceFAZolin 2 gm In Sodium 50 Chloride 0.9% 50 ml @ 100 mls/hr IVPB Q8HR [facility] Rx# :[id number] Intake, IV Titration 73.123 Amount Clevidipine Butyrate 25 6.667 mg In Empty Bag 1 bag @ 1 MG/HR 2 mls/hr IV .Q24H [facility] Rx#:[id number] Insulin Regular 100 unit 20.208 In Sodium Chloride 0.9% 100 ml @ Per Protocol IV .Q0M [facility] Rx#:[id number] propofoL 1,000 mg In 46.248 Empty Bag 1 bag @ Titrate IV .Q0M [facility] Rx#: [id number] Oral 540 540 Output: Chest Tube Drainage 950 0 MS and LP 950 0 Urine 200 1135 45 Estimated Blood Loss 500 Other: Voiding Method Indwelling Catheter ABP, PAP, CO, CI - Last Documented Arterial Blood Pressure 117/42 Pulmonary Artery Pressure 22/5 Cardiac Output 8.5 Cardiac Index 3.8 - Exam CONSTITUTIONAL: Appears comfortable, cooperative, no acute distress RESPIRATORY: Lungs sounds diminished bilaterally. Respirations even, nonlabo red. Currently on room air with oxygen saturation 97%. Able to achieve 1000 mL on incentive spirometry. Strong cough. CARDIOVASCULAR: S1, S2 present. Regular rate and rhythm, sinus rhythm on te lemetry. Sternum stable. Palpable peripheral pulses bilaterally. No edema present. No calf pain or tenderness noted. Heart hugger in place with patient demonstrating appropriate use. Antiembolism stockings, SCDs present. GASTROINTESTINAL: Abdomen soft, nontender, nondistended. Hypoactive bowel sounds present 4 quadrants. Tolerating clear liquid diet. Denies flatus GENITOURINARY: Lim present draining clear, yellow urine. Output overnight 60-130 mL per hour INTEGUMENTARY: Skin is warm and dry with evidence of good perfusion. Anterior chest incision well approximated and covered with dry intact dressing. Left lower extremity EVH site well approximated without redness or drainage. NEUROLOGIC: Cranial nerves II through XII intact MUSKULOSKELETAL: Able to move all extremities, strength equal bilaterally, gait normal PSYCHIATRIC: Alert and oriented to person place and time, appropriate affect, intact judgment and insight INVASIVE LINES AND TUBES: Mediastinal/left pleural chest tubes present and connected to wall suction, no air leaks present, 430 mL serosanguineous drainage overnight, 950 mL since surgery. Right internal jugular [place]ren/Cordis, right radial arterial line present. Last CO/CI 8.9/3.9, PA 17/5, CVP 8. - Allied health notes Allied health notes reviewed: nursing - Labs CBC & Chem 7: 01/16/22 05:00 01/16/22 05:00 Labs: Abnormal Lab Results - Last 24 Hours (Table) 01/12/22 01/15/22 01/15/22 Range/Units 09:18 14:49 15:41 RBC (4.30-5.90) m/uL Hgb (13.0-17.5) gm/dL Hct (39.0-53.0) % Plt Count (150-450) k/uL Neutrophils # (1.3-7.7) k/uL Lymphocytes # (1.0-4.8) k/uL PT (9.0-12.0) sec INR (<1.2) APTT (22.0-30.0) sec ABG pH 7.46 H (7.35-7.45) ABG pCO2 (35-45) mmHg ABG pO2 >420 H >420 H (83-108) mmHg ABG HCO3 26 H (21-25) mmol/L ABG Total CO2 26 H 27 H (19-24) mmol/L ABG O2 Saturation 100.0 H 99.9 H (94-97) % ABG Hematocrit (34.0-46.0) % ABG Glucose 110 H (75-99) mg/dL Hemoglobin (13.0-17.5) gm/dL Sodium (137-145) mmol/L Chloride (98-107) mmol/L BUN (9-20) mg/dL Creatinine (0.66-1.25) mg/dL Glucose (74-99) mg/dL POC Glucose (mg/dL) (70-110) mg/dL Calcium (8.4-10.2) mg/dL Magnesium (1.6-2.3) mg/dL Total Protein (6.3-8.2) g/dL Arterial Blood Glucose 110 H (75-99) mg/dL Crossmatch See Detail 01/15/22 01/15/22 01/15/22 Range/Units 16:36 17:08 18:30 RBC 3.42 L (4.30-5.90) m/uL Hgb 10.3 L (13.0-17.5) gm/dL Hct 29.5 L (39.0-53.0) % Plt Count 144 L (150-450) k/uL Neutrophils # 8.6 H (1.3-7.7) k/uL Lymphocytes # (1.0-4.8) k/uL PT (9.0-12.0) sec INR (<1.2) APTT (22.0-30.0) sec ABG pH (7.35-7.45) ABG pCO2 (35-45) mmHg ABG pO2 268 H 229 H (83-108) mmHg ABG HCO3 (21-25) mmol/L ABG Total CO2 (19-24) mmol/L ABG O2 Saturation 99.7 H 99.5 H (94-97) % ABG Hematocrit 32 L (34.0-46.0) % ABG Glucose 109 H 108 H (75-99) mg/dL Hemoglobin 11.6 L 10.5 L (13.0-17.5) gm/dL Sodium (137-145) mmol/L Chloride (98-107) mmol/L BUN (9-20) mg/dL Creatinine (0.66-1.25) mg/dL Glucose (74-99) mg/dL POC Glucose (mg/dL) (70-110) mg/dL Calcium (8.4-10.2) mg/dL Magnesium (1.6-2.3) mg/dL Total Protein (6.3-8.2) g/dL Arterial Blood Glucose 109 H 108 H (75-99) mg/dL Crossmatch 01/15/22 01/15/22 01/15/22 Range/Units 18:30 18:30 18:34 RBC (4.30-5.90) m/uL Hgb (13.0-17.5) gm/dL Hct (39.0-53.0) % Plt Count (150-450) k/uL Neutrophils # (1.3-7.7) k/uL Lymphocytes # (1.0-4.8) k/uL PT 12.6 H (9.0-12.0) sec INR 1.2 H (<1.2) APTT 30.2 H (22.0-30.0) sec ABG pH (7.35-7.45) ABG pCO2 (35-45) mmHg ABG pO2 (83-108) mmHg ABG HCO3 (21-25) mmol/L ABG Total CO2 (19-24) mmol/L ABG O2 Saturation (94-97) % ABG Hematocrit (34.0-46.0) % ABG Glucose (75-99) mg/dL Hemoglobin (13.0-17.5) gm/dL Sodium (137-145) mmol/L Chloride 109 H (98-107) mmol/L BUN 22 H (9-20) mg/dL Creatinine (0.66-1.25) mg/dL Glucose 109 H (74-99) mg/dL POC Glucose (mg/dL) 118 H (70-110) mg/dL Calcium 8.0 L (8.4-10.2) mg/dL Magnesium 1.5 L (1.6-2.3) mg/dL Total Protein 5.3 L (6.3-8.2) g/dL Arterial Blood Glucose (75-99) mg/dL Crossmatch 01/15/22 01/15/22 01/15/22 Range/Units 19:07 19:10 19:54 RBC (4.30-5.90) m/uL Hgb (13.0-17.5) gm/dL Hct (39.0-53.0) % Plt Count (150-450) k/uL Neutrophils # (1.3-7.7) k/uL Lymphocytes # (1.0-4.8) k/uL PT (9.0-12.0) sec INR (<1.2) APTT (22.0-30.0) sec ABG pH 7.32 L (7.35-7.45) ABG pCO2 47 H (35-45) mmHg ABG pO2 374 H (83-108) mmHg ABG HCO3 (21-25) mmol/L ABG Total CO2 26 H (19-24) mmol/L ABG O2 Saturation 100.0 H (94-97) % ABG Hematocrit (34.0-46.0) % ABG Glucose (75-99) mg/dL Hemoglobin (13.0-17.5) gm/dL Sodium (137-145) mmol/L Chloride (98-107) mmol/L BUN (9-20) mg/dL Creatinine (0.66-1.25) mg/dL Glucose (74-99) mg/dL POC Glucose (mg/dL) 122 H 144 H (70-110) mg/dL Calcium (8.4-10.2) mg/dL Magnesium (1.6-2.3) mg/dL Total Protein (6.3-8.2) g/dL Arterial Blood Glucose (75-99) mg/dL Crossmatch 01/15/22 01/15/22 01/15/22 Range/Units 21:01 22:08 22:10 RBC 3.47 L (4.30-5.90) m/uL Hgb 10.5 L (13.0-17.5) gm/dL Hct 29.7 L (39.0-53.0) % Plt Count 145 L (150-450) k/uL Neutrophils # 9.0 H (1.3-7.7) k/uL Lymphocytes # 0.8 L (1.0-4.8) k/uL PT (9.0-12.0) sec INR (<1.2) APTT (22.0-30.0) sec ABG pH (7.35-7.45) ABG pCO2 (35-45) mmHg ABG pO2 (83-108) mmHg ABG HCO3 (21-25) mmol/L ABG Total CO2 (19-24) mmol/L ABG O2 Saturation (94-97) % ABG Hematocrit (34.0-46.0) % ABG Glucose (75-99) mg/dL Hemoglobin (13.0-17.5) gm/dL Sodium (137-145) mmol/L Chloride (98-107) mmol/L BUN (9-20) mg/dL Creatinine (0.66-1.25) mg/dL Glucose (74-99) mg/dL POC Glucose (mg/dL) 155 H 171 H (70-110) mg/dL Calcium (8.4-10.2) mg/dL Magnesium (1.6-2.3) mg/dL Total Protein (6.3-8.2) g/dL Arterial Blood Glucose (75-99) mg/dL Crossmatch 01/15/22 01/15/22 01/15/22 Range/Units 22:30 22:52 23:57 RBC (4.30-5.90) m/uL Hgb (13.0-17.5) gm/dL Hct (39.0-53.0) % Plt Count (150-450) k/uL Neutrophils # (1.3-7.7) k/uL Lymphocytes # (1.0-4.8) k/uL PT (9.0-12.0) sec INR (<1.2) APTT (22.0-30.0) sec ABG pH (7.35-7.45) ABG pCO2 (35-45) mmHg ABG pO2 119 H (83-108) mmHg ABG HCO3 (21-25) mmol/L ABG Total CO2 26 H (19-24) mmol/L ABG O2 Saturation 99.2 H (94-97) % ABG Hematocrit (34.0-46.0) % ABG Glucose (75-99) mg/dL Hemoglobin (13.0-17.5) gm/dL Sodium (137-145) mmol/L Chloride (98-107) mmol/L BUN (9-20) mg/dL Creatinine (0.66-1.25) mg/dL Glucose (74-99) mg/dL POC Glucose (mg/dL) 149 H 132 H (70-110) mg/dL Calcium (8.4-10.2) mg/dL Magnesium (1.6-2.3) mg/dL Total Protein (6.3-8.2) g/dL Arterial Blood Glucose (75-99) mg/dL Crossmatch 01/16/22 01/16/22 01/16/22 Range/Units 00:40 00:52 01:56 RBC 3.50 L (4.30-5.90) m/uL Hgb 11.0 L (13.0-17.5) gm/dL Hct 30.0 L (39.0-53.0) % Plt Count (150-450) k/uL Neutrophils # 8.6 H (1.3-7.7) k/uL Lymphocytes # 0.4 L (1.0-4.8) k/uL PT (9.0-12.0) sec INR (<1.2) APTT (22.0-30.0) sec ABG pH (7.35-7.45) ABG pCO2 (35-45) mmHg ABG pO2 (83-108) mmHg ABG HCO3 (21-25) mmol/L ABG Total CO2 (19-24) mmol/L ABG O2 Saturation (94-97) % ABG Hematocrit (34.0-46.0) % ABG Glucose (75-99) mg/dL Hemoglobin (13.0-17.5) gm/dL Sodium (137-145) mmol/L Chloride (98-107) mmol/L BUN (9-20) mg/dL Creatinine (0.66-1.25) mg/dL Glucose (74-99) mg/dL POC Glucose (mg/dL) 124 H 113 H (70-110) mg/dL Calcium (8.4-10.2) mg/dL Magnesium (1.6-2.3) mg/dL Total Protein (6.3-8.2) g/dL Arterial Blood Glucose (75-99) mg/dL Crossmatch 01/16/22 01/16/22 01/16/22 Range/Units 03:01 04:09 05:00 RBC 3.59 L (4.30-5.90) m/uL Hgb 11.1 L (13.0-17.5) gm/dL Hct 30.8 L (39.0-53.0) % Plt Count (150-450) k/uL Neutrophils # 8.2 H (1.3-7.7) k/uL Lymphocytes # 0.6 L (1.0-4.8) k/uL PT (9.0-12.0) sec INR (<1.2) APTT (22.0-30.0) sec ABG pH (7.35-7.45) ABG pCO2 (35-45) mmHg ABG pO2 (83-108) mmHg ABG HCO3 (21-25) mmol/L ABG Total CO2 (19-24) mmol/L ABG O2 Saturation (94-97) % ABG Hematocrit (34.0-46.0) % ABG Glucose (75-99) mg/dL Hemoglobin (13.0-17.5) gm/dL Sodium (137-145) mmol/L Chloride (98-107) mmol/L BUN (9-20) mg/dL Creatinine (0.66-1.25) mg/dL Glucose (74-99) mg/dL POC Glucose (mg/dL) 128 H 127 H (70-110) mg/dL Calcium (8.4-10.2) mg/dL Magnesium (1.6-2.3) mg/dL Total Protein (6.3-8.2) g/dL Arterial Blood Glucose (75-99) mg/dL Crossmatch 01/16/22 01/16/22 01/16/22 Range/Units 05:00 05:03 06:12 RBC (4.30-5.90) m/uL Hgb (13.0-17.5) gm/dL Hct (39.0-53.0) % Plt Count (150-450) k/uL Neutrophils # (1.3-7.7) k/uL Lymphocytes # (1.0-4.8) k/uL PT (9.0-12.0) sec INR (<1.2) APTT (22.0-30.0) sec ABG pH (7.35-7.45) ABG pCO2 (35-45) mmHg ABG pO2 (83-108) mmHg ABG HCO3 (21-25) mmol/L ABG Total CO2 (19-24) mmol/L ABG O2 Saturation (94-97) % ABG Hematocrit (34.0-46.0) % ABG Glucose (75-99) mg/dL Hemoglobin (13.0-17.5) gm/dL Sodium 135 L (137-145) mmol/L Chloride (98-107) mmol/L BUN 21 H (9-20) mg/dL Creatinine 0.64 L (0.66-1.25) mg/dL Glucose 114 H (74-99) mg/dL POC Glucose (mg/dL) 116 H 123 H (70-110) mg/dL Calcium 8.3 L (8.4-10.2) mg/dL Magnesium (1.6-2.3) mg/dL Total Protein 5.4 L (6.3-8.2) g/dL Arterial Blood Glucose (75-99) mg/dL Crossmatch 01/16/22 Range/Units 07:03 RBC (4.30-5.90) m/uL Hgb (13.0-17.5) gm/dL Hct (39.0-53.0) % Plt Count (150-450) k/uL Neutrophils # (1.3-7.7) k/uL Lymphocytes # (1.0-4.8) k/uL PT (9.0-12.0) sec INR (<1.2) APTT (22.0-30.0) sec ABG pH (7.35-7.45) ABG pCO2 (35-45) mmHg ABG pO2 (83-108) mmHg ABG HCO3 (21-25) mmol/L ABG Total CO2 (19-24) mmol/L ABG O2 Saturation (94-97) % ABG Hematocrit (34.0-46.0) % ABG Glucose (75-99) mg/dL Hemoglobin (13.0-17.5) gm/dL Sodium (137-145) mmol/L Chloride (98-107) mmol/L BUN (9-20) mg/dL Creatinine (0.66-1.25) mg/dL Glucose (74-99) mg/dL POC Glucose (mg/dL) 122 H (70-110) mg/dL Calcium (8.4-10.2) mg/dL Magnesium (1.6-2.3) mg/dL Total Protein (6.3-8.2) g/dL Arterial Blood Glucose (75-99) mg/dL Crossmatch - Imaging and Cardiology Chest x-ray: report reviewed, image reviewed Assessment and Plan Assessment: 1. Coronary artery disease, status post four-vessel off-pump CABG 2. History of hypertension 3. Hyperlipidemia, treated, cholesterol 102, LDL 41 4. Arthritis 5. Previous tobacco dependence, preoperative FEV1 93% of predicted 6. Obstructive sleep apnea with home CPAP use 7. Remote history of pneumonia 8. Family history of premature coronary artery disease with father diagnosed before the age of 60 9. Postoperative acute blood loss anemia, expected given hemodilution Plan: 1. Continue aspirin, statin, Plavix, beta luis therapy. Will increase beta luis therapy as tolerated. Discontinue IV nitro 2. Continue calcium channel luis for radial artery spasm prophylaxis, will transition to oral 3. Encourage incentive spirometry is 10 times every hour while awake. Bronchodilators, CPAP management per pulmonology 4. Increase activity, ambulate as tolerated. PT/OT/cardiac rehab consulted 5. Will monitor daily labs and x-rays. Electrolyte replacement per protocol 6. GI/DVT prophylaxis 7. Insulin management per primary care service. Patient is not diabetic, hemoglobin A1c 5.8% 8. Pain control with current medication regimen 9. Discontinue [place]. Connect Cordis to continuous CVP monitoring 10. Continue chest tubes for another 24 hours 11. Continue Lim catheter for another 24 hours for strict accurate intake and output. Daily weights 12. More recommendations to follow
[2022-01-16] MEDS ORDERED: MAGNESIUM HYDROXIDE 2,400 MG/10 ML CUP PO PRN (09:00)
[2022-01-16] MEDS ORDERED: bisacodyL 10 MG SUPP RECTAL PRN (09:00)
[2022-01-16] MEDS ORDERED: METOPROLOL TARTRATE 12.5 MG TAB PO SCH (09:00)
[2022-01-16] MEDS ORDERED: PANTOPRAZOLE 40 MG/10 ML VIAL IVP SCH (09:00)
[2022-01-16] MEDS: DILTIAZEM ORAL 30 MG TAB PO SCH ×3 (09:31→18:57)
[2022-01-16] MEDS: ASPIRIN 325 MG TAB PO SCH (09:32)
[2022-01-16] MEDS: CLOPIDOGREL 75 MG TAB PO SCH (09:32)
[2022-01-16 09:50] LABS: Glucose,Whole Blood 120 mg/dL (70-110)
--- NOTE | 2022-01-16 11:06 | P.CNPUL ---
History of Present Illness Consult date: 01/16/22 Requesting physician: Poli Watt Reason for consult: other (Mechanical ventilator/critical care management) Chief complaint: Coronary artery disease History of present illness: This is a pleasant 66-year-old male patient with a known history of chronic tobacco dependence, chronic obstructive sleep apnea on home CPAP, hypertension, hyperlipidemia, arthritis. He was found to havesignificant coronary artery disease and presented here yesterday for an elective bypass surgery. He had undergone an off-pump coronary artery bypass grafting 4 with a SCHREIBER to the LAD, left radial artery to the obtuse marginal, SVG to the first diagonal, SVG to the PDA. He also had left atrial clip placed. He was extubated in less than 6 hours. He is currently seen in the intensive care unit. Sitting up in the chair at the bedside. Currently maintaining good O2 saturations in the 90s on room air. He is on a Cardizem drip at 5 mg per hour. Nitroglycerin drip has been weaned off. He is on a insulin drip at 1.5 units per hour. Lactated Ringer's at 50 MLS per hour. chest x-ray reveals interval removal endotracheal and an nasogastric tube. Mediastinal and left pleural chest tubes remain in walker ce. Right IJ [place]-Nita catheter in place. No evidence of pneumothorax. There is some left basilar atelectasis. white count 9.6. Hemoglobin 11.1. Sodium 135. Potassium 3.8. Bicarb 24. BUN 21. Creatinine 0.64. Glucose 120. Albumin 3.6. cardiac output 7. Cardiac index 3.1. PA pressures 19/7. He is continued on bronchodilators. Received albumin. Heparin for DVT prophylaxis. Review of Systems REVIEW OF SYSTEMS: CONSTITUTIONAL: Denies any recent significant weight loss or weight gain. EYES: Denies change in vision. EARS, NOSE, MOUTH, THROAT: Denies headaches, denies sore throat. CARDIOVASCULAR: Surgical site chest pain, palpitations or syncopal episodes. RESPIRATORY: Denies shortness of breath, cough, congestion or hemoptysis. GASTROINTESTINAL: Denies change in appetite, denies abdominal pain GENITOURINARY: Denies hematuria, denies infections. MUSKULOSKELETAL: Denies pain, denies swelling. INTEGUMENTARY: Denies rash, denies eczema. NEUROLOGICAL: Denies recent memory loss, no recent seizure activity. PSYCHIATRIC: Denies anxiety, denies depression. HEMATOLOGIC/LYMPHATIC: Denies anemia, denies enlarged lymph nodes. Past Medical History Past Medical History: Hyperlipidemia, Hypertension, Osteoarthritis (OA), Pneumonia, Sleep Apnea/CPAP/BIPAP Additional Past Medical History / Comment(s): USES CPAP, HX KIDNEY STONES,PNEUMONIA YRS AGO History of Any Multi-Drug Resistant Organisms: None Reported Past Surgical History: Heart Catheterization, Joint Replacement, Orthopedic Surgery Additional Past Surgical History / Comment(s): RT HIP REPLACEMENT,LEFT INGUINAL HERNIA,LT KNEE ARTHROSCOPY Past Anesthesia/Blood Transfusion Reactions: No Reported Reaction Additional Past Anesthesia/Blood Transfusion Reaction / Comment(s): NO HX BLOOD TRANSFUSIONS Smoking Status: Never smoker - Past Family History Mother Family Medical History: No Reported History Father Family Medical History: Coronary Artery Disease (CAD) Additional Family Medical History / Comment(s): cabg AND VALVE REPLACEMENT AT AGE 82 Medications and Allergies Home Medications Medication Instructions Recorded Confirmed Type Aspirin 81 mg PO DAILY 01/10/22 01/10/22 History Atorvastatin [Lipitor] 80 mg PO HS 01/10/22 01/10/22 History Glucosamine HCl/Chondroitin Garcia 1 each PO DAILY 01/10/22 01/10/22 History [Glucosamine-Chondroitin Cap] Triamterene/Hydrochlorothiazid 1 each PO DAILY 01/10/22 01/10/22 History [Triamterene-Hctz 37.5-25 mg Cp] amLODIPine [Norvasc] 2.5 mg PO DAILY 01/10/22 01/10/22 History Allergies Allergy/AdvReac Type Severity Reaction Status Date / Time No Known Allergies Allergy Verified 01/12/22 10:43 Physical Exam Vitals: Vital Signs Temp Pulse Resp BP Pulse Ox FiO2 01/16/22 10:00 84 14 93 L 01/16/22 09:30 75 25 H 94/54 95 01/16/22 09:00 79 26 H 97 01/16/22 08:30 79 20 96 01/16/22 08:00 81 18 97 01/16/22 07:30 92 27 H 98 01/16/22 07:23 87 01/16/22 07:13 81 01/16/22 07:00 80 22 96 01/16/22 06:30 80 20 97 01/16/22 06:00 83 20 98 01/16/22 05:30 91 18 99 01/16/22 05:00 84 18 96 01/16/22 04:30 84 18 97 01/16/22 04:00 82 18 96 01/16/22 03:30 82 20 97 01/16/22 03:00 90 18 97 01/16/22 02:30 81 18 97 01/16/22 02:00 84 18 97 01/16/22 01:30 80 16 97 01/16/22 01:00 79 17 97 01/16/22 00:30 89 32 H 98 01/16/22 00:00 99.0 F 81 23 97 01/15/22 23:00 80 14 100 01/15/22 22:30 87 20 95 01/15/22 22:00 75 17 99 01/15/22 21:49 40 01/15/22 21:36 40 01/15/22 21:30 89 19 97 01/15/22 21:00 78 17 98 01/15/22 20:30 75 17 100 01/15/22 20:15 75 16 99 01/15/22 20:00 76 18 99 50 01/15/22 19:45 79 18 99 01/15/22 19:34 50 01/15/22 19:30 83 11 L 94 L 60 01/15/22 19:20 76 01/15/22 19:18 60 01/15/22 19:15 73 18 100 01/15/22 19:00 69 14 100 01/15/22 18:50 64 13 100 01/15/22 18:47 100 01/15/22 18:40 65 12 100 01/15/22 18:30 65 5 L 100 100 01/15/22 18:28 61 10 L Intake and Output 01/15/22 01/16/22 01/16/22 22:59 06:59 14:59 Intake Total 730.317 7075.045 1076 Output Total 1740 1045 265 Balance -940.922 141.045 811 Intake: IV 739 633 286 ACETAMINOPHEN IV (For NPO 100 ) 1,000 mg In Empty Bag 1 bag @ 400 mls/hr IVPB Q6HR DYANA Rx#:[id number] Lactated Ringers 1,000 ml 250 350 200 @ 20 mls/hr IV .Q24H DYANA Rx#:[id number] Magnesium Sulfate-D5w Pmx 200 1 gm In Dextrose/Water 1 100ml.bag @ 100 mls/hr IVPB Q1H DYANA Rx#: [id number] NS Cardiac Calcs 140 70 50 NS Pressure Bag 45 63 36 Potassium Chloride 20 meq 100 In Water For Injection 1 100ml.bag @ 50 mls/hr IVPB ONCE STA Rx#: [id number] ceFAZolin 2 gm In Sodium 50 Chloride 0.9% 50 ml @ 100 mls/hr IVPB Q8HR DYANA Rx# :[id number] Intake, IV Titration 60.078 13.045 Amount Clevidipine Butyrate 25 6.667 mg In Empty Bag 1 bag @ 1 MG/HR 2 mls/hr IV .Q24H DYANA Rx#:[id number] Insulin Regular 100 unit 7.163 13.045 In Sodium Chloride 0.9% 100 ml @ Per Protocol IV .Q0M DYANA Rx#:[id number] propofoL 1,000 mg In 46.248 Empty Bag 1 bag @ Titrate IV .Q0M DYANA Rx#: [id number] Oral 540 790 Output: Chest Tube Drainage 520 430 100 MS and LP 520 430 100 Urine 720 615 165 Estimated Blood Loss 500 Other: Voiding Method Indwelling Catheter Indwelling Catheter Indwelling Catheter Weight 100.9 kg 100.9 kg ABP, PAP, CO, CI - Last 8 Hours Arterial Blood Pressure 98/44 Arterial Blood Pressure 116/45 Arterial Blood Pressure 113/45 Arterial Blood Pressure 123/43 Arterial Blood Pressure 123/42 Arterial Blood Pressure 115/43 Arterial Blood Pressure 117/42 Arterial Blood Pressure 108/37 Arterial Blood Pressure 114/46 Arterial Blood Pressure 130/54 Arterial Blood Pressure 120/53 Arterial Blood Pressure 119/54 Arterial Blood Pressure 117/52 Arterial Blood Pressure 114/52 Arterial Blood Pressure 116/53 Pulmonary Artery Pressure 19/7 Pulmonary Artery Pressure 20/7 Pulmonary Artery Pressure 18/6 Pulmonary Artery Pressure 19/7 Pulmonary Artery Pressure 21/4 Pulmonary Artery Pressure 22/5 Pulmonary Artery Pressure 16/2 Pulmonary Artery Pressure 12/1 Pulmonary Artery Pressure 27/15 Pulmonary Artery Pressure 25/13 Pulmonary Artery Pressure 25/14 Pulmonary Artery Pressure 27/12 Pulmonary Artery Pressure 29/12 Pulmonary Artery Pressure 32/14 Cardiac Output 7 Cardiac Output 8.5 Cardiac Output 8.9 Cardiac Index 3.1 Cardiac Index 3.8 Cardiac Index 3.9 GENERAL EXAM: Alert, very pleasant 66-year-old male, on room air, up in a chair, fairly comfortable in no apparent distress. HEAD: Normocephalic. EYES: Normal reaction of pupils, equal size. NOSE: Clear with pink turbinates. THROAT: No erythema or exudates. NECK: Right IJ [place]-Nita catheter in place.No masses, no JVD. CHEST: Sternal dressing dry and intact. Heart Hugger in place. Mediastinal and left pleural chest tubes in place.. LUNGS: Equal air entry with few scattered rhonchi. CVS: S1 and S2 normal with no audible murmur, regular rhythm. ABDOMEN: No hepatosplenomegaly, normal bowel sounds, no guarding or rigidity. SPINE: No scoliosis or deformity SKIN: No rashes CENTRAL NERVOUS SYSTEM: No focal deficits, tone is normal in all 4 extremities. EXTREMITIES: Right radial arterial line in place.There is no peripheral edema. No clubbing, no cyanosis. Peripheral pulses are intact. Results - Laboratory Findings CBC and BMP: 01/16/22 05:00 01/16/22 09:50 ABG ABG pH 7.37 (7.35-7.45) 01/15/22 22:30 ABG pCO2 42 mmHg (35-45) 01/15/22 22:30 ABG pO2 119 mmHg (83-108) H 01/15/22 22:30 ABG O2 Saturation 99.2 % (94-97) H 01/15/22 22:30 PT/INR, D-dimer PT 12.6 sec (9.0-12.0) H 01/15/22 18:30 INR 1.2 (<1.2) H 01/15/22 18:30 Abnormal lab findings: Abnormal Labs 01/12/22 01/15/22 01/15/22 09:18 14:49 15:41 RBC Hgb Hct Plt Count Neutrophils # Lymphocytes # PT INR APTT ABG pH 7.46 H ABG pCO2 ABG pO2 >420 H >420 H ABG HCO3 26 H ABG Total CO2 26 H 27 H ABG O2 Saturation 100.0 H 99.9 H ABG Hematocrit ABG Glucose 110 H Hemoglobin Sodium Chloride BUN Creatinine Glucose POC Glucose (mg/dL) Calcium Magnesium Total Protein Arterial Blood Glucose 110 H Crossmatch See Detail 01/15/22 01/15/22 01/15/22 16:36 17:08 18:30 RBC 3.42 L Hgb 10.3 L Hct 29.5 L Plt Count 144 L Neutrophils # 8.6 H Lymphocytes # PT INR APTT ABG pH ABG pCO2 ABG pO2 268 H 229 H ABG HCO3 ABG Total CO2 ABG O2 Saturation 99.7 H 99.5 H ABG Hematocrit 32 L ABG Glucose 109 H 108 H Hemoglobin 11.6 L 10.5 L Sodium Chloride BUN Creatinine Glucose POC Glucose (mg/dL) Calcium Magnesium Total Protein Arterial Blood Glucose 109 H 108 H Crossmatch 01/15/22 01/15/22 01/15/22 18:30 18:30 18:34 RBC Hgb Hct Plt Count Neutrophils # Lymphocytes # PT 12.6 H INR 1.2 H APTT 30.2 H ABG pH ABG pCO2 ABG pO2 ABG HCO3 ABG Total CO2 ABG O2 Saturation ABG Hematocrit ABG Glucose Hemoglobin Sodium Chloride 109 H BUN 22 H Creatinine Glucose 109 H POC Glucose (mg/dL) 118 H Calcium 8.0 L Magnesium 1.5 L Total Protein 5.3 L Arterial Blood Glucose Crossmatch 01/15/22 01/15/22 01/15/22 19:07 19:10 19:54 RBC Hgb Hct Plt Count Neutrophils # Lymphocytes # PT INR APTT ABG pH 7.32 L ABG pCO2 47 H ABG pO2 374 H ABG HCO3 ABG Total CO2 26 H ABG O2 Saturation 100.0 H ABG Hematocrit ABG Glucose Hemoglobin Sodium Chloride BUN Creatinine Glucose POC Glucose (mg/dL) 122 H 144 H Calcium Magnesium Total Protein Arterial Blood Glucose Crossmatch 01/15/22 01/15/22 01/15/22 21:01 22:08 22:10 RBC 3.47 L Hgb 10.5 L Hct 29.7 L Plt Count 145 L Neutrophils # 9.0 H Lymphocytes # 0.8 L PT INR APTT ABG pH ABG pCO2 ABG pO2 ABG HCO3 ABG Total CO2 ABG O2 Saturation ABG Hematocrit ABG Glucose Hemoglobin Sodium Chloride BUN Creatinine Glucose POC Glucose (mg/dL) 155 H 171 H Calcium Magnesium Total Protein Arterial Blood Glucose Crossmatch 01/15/22 01/15/22 01/15/22 22:30 22:52 23:57 RBC Hgb Hct Plt Count Neutrophils # Lymphocytes # PT INR APTT ABG pH ABG pCO2 ABG pO2 119 H ABG HCO3 ABG Total CO2 26 H ABG O2 Saturation 99.2 H ABG Hematocrit ABG Glucose Hemoglobin Sodium Chloride BUN Creatinine Glucose POC Glucose (mg/dL) 149 H 132 H Calcium Magnesium Total Protein Arterial Blood Glucose Crossmatch 01/16/22 01/16/22 01/16/22 00:40 00:52 01:56 RBC 3.50 L Hgb 11.0 L Hct 30.0 L Plt Count Neutrophils # 8.6 H Lymphocytes # 0.4 L PT INR APTT ABG pH ABG pCO2 ABG pO2 ABG HCO3 ABG Total CO2 ABG O2 Saturation ABG Hematocrit ABG Glucose Hemoglobin Sodium Chloride BUN Creatinine Glucose POC Glucose (mg/dL) 124 H 113 H Calcium Magnesium Total Protein Arterial Blood Glucose Crossmatch 01/16/22 01/16/22 01/16/22 03:01 04:09 05:00 RBC 3.59 L Hgb 11.1 L Hct 30.8 L Plt Count Neutrophils # 8.2 H Lymphocytes # 0.6 L PT INR APTT ABG pH ABG pCO2 ABG pO2 ABG HCO3 ABG Total CO2 ABG O2 Saturation ABG Hematocrit ABG Glucose Hemoglobin Sodium Chloride BUN Creatinine Glucose POC Glucose (mg/dL) 128 H 127 H Calcium Magnesium Total Protein Arterial Blood Glucose Crossmatch 01/16/22 01/16/22 01/16/22 05:00 05:03 06:12 RBC Hgb Hct Plt Count Neutrophils # Lymphocytes # PT INR APTT ABG pH ABG pCO2 ABG pO2 ABG HCO3 ABG Total CO2 ABG O2 Saturation ABG Hematocrit ABG Glucose Hemoglobin Sodium 135 L Chloride BUN 21 H Creatinine 0.64 L Glucose 114 H POC Glucose (mg/dL) 116 H 123 H Calcium 8.3 L Magnesium Total Protein 5.4 L Arterial Blood Glucose Crossmatch 01/16/22 01/16/22 07:03 09:47 RBC Hgb Hct Plt Count Neutrophils # Lymphocytes # PT INR APTT ABG pH ABG pCO2 ABG pO2 ABG HCO3 ABG Total CO2 ABG O2 Saturation ABG Hematocrit ABG Glucose Hemoglobin Sodium Chloride BUN Creatinine Glucose POC Glucose (mg/dL) 122 H 120 H Calcium Magnesium Total Protein Arterial Blood Glucose Crossmatch - Diagnostic Findings Chest x-ray: image reviewed Assessment and Plan Assessment: Coronary artery disease status post coronary artery bypass grafting 4 with a SCHREIBER to the LAD, left radial artery to the obtuse marginal artery, saphenous vein grafts to the first diagonal and PDA. Left atrial clip. Postoperative day #1. History of previous chronic tobacco dependence Hyperlipidemia Hypertension Obstructive sleep apnea with CPAP Plan: The patient was seen and evaluated Chest x-ray, labs and medications reviewed Stable and on room air Encouraged the increased use of the incentive spirometer Increase his activity as tolerated We will continue to follow and make further recommendations based on his clinical status I have personally seen and examined the patient, performed the documentation and the assessment and plan as written. Number of minutes spent on the visit: 20.
[2022-01-16 11:56] LABS: Glucose,Whole Blood 130 mg/dL (70-110)
[2022-01-16] MEDS ORDERED: amLODIPine 2.5 MG TAB PO SCH (12:00)
--- NOTE | 2022-01-16 12:02 | CONS ---
CONSULTATION HISTORY OF PRESENT ILLNESS: This gentleman has history of CAD, underwent aortocoronary bypass surgery with a SCHREIBER to LAD, left radial artery graft to the obtuse marginal, and vein graft to the diagonal branch. This was performed off pump yesterday by Dr. Watt. Post procedure, the patient is doing remarkably well. He has been extubated, remains in sinus rhythm, hemodynamically stable. His other comorbid conditions include hypertension, hyperlipidemia, degenerative joint disease, and also obstructive sleep apnea with CPAP use in the past. He is doing well. He is sitting up, eating breakfast. No chest pain or shortness of breath. He feels much better. He has some incisional pain. He has IV nitroglycerin and Cardizem for vessel spasm. PHYSICAL EXAMINATION: VITAL SIGNS: His vital signs are stable. NECK: There is no JVD. HEART: S1, S2 heard normally. No significant murmurs. LUNGS: Reveal bilateral air entry, fair. ABDOMEN: Soft. EXTREMITIES: Lower extremities reveal diminished pulses. CENTRAL NERVOUS SYSTEM: Normal. IMPRESSION: 1. Status post bypass surgery yesterday, doing well. 2. Hypertension. 3. Hyperlipidemia. 4. Smoking and chronic obstructive pulmonary disease. 5. History of obstructive sleep apnea. RECOMMENDATIONS: I recommend that we continue current medical regimen and continue risk. Incentive spirometry and pulmonary toilet. All his medications have been resumed. He is progressing well overall. We will continue to follow. MMODL / IJN: [id number] /
--- NOTE | 2022-01-16 13:32 | P.CONS ---
History of Present Illness - Reason for Consult Consult date: 01/16/22 - History of Present Illness HISTORY OF PRESENT ILLNESS This is a 66-year-old male patient with past history of hypertension, hyperlipidemia, obstructive sleep apnea with CPAP. Patient was establish as new patient in September of this year. He was having exertional dyspnea and a CT heart with calcium score was ordered. He came back elevated and patient was referred to Dr. Gilbert. Stress test which was positive and cardiac catheterization revealed three-vessel coronary artery disease with 90% or more stenosis of the left anterior descending coronary artery after takeoff of the first diagonal. The first diagonal was 80-90% stenosis. Left main normal. Circumflex coronary artery lesion to second obtuse marginal branches, the first of which was completely occluded and fills via collateral. The second was 80-85% stenosed. Right coronary artery was 80% stenosis and leads to PDA and DORINA. Patient was then referred to cardiothoracic surgeon to be evaluated for coronary artery bypass grafting. Echocardiogram performed 01/18 revealed EF of 50-55%, mild concentric left hypertrophy, mild mitral regurgitation, mild tricuspid regurgitation. Patient has been brought into [facility] on 01/[address] Watt. He is status post off-pump coronary artery bypass grafting 4 with SCHREIBER to LAD, left radial artery to obtuse marginal, SVG to first diagonal, SVG to EEA with ligation of the left atrial appendage and endovascular vein harvest of the left greater saphenous vein, endovascular harvest of the left radial artery. Patient was successfully extubated last night and utilize CPAP through the night. He has been hemodynamically stable. Patient is found sitting in a chair. He states his pain is controlled. He denies shortness of breath. He states he has stood only above plan is for ambulation later today. He is on a clear liquid diet and tolerating. Patient is on insulin drip which will be transitioned to NovoLog scale. Laboratory studies reveal WBC 9.6, hemoglobin 11.1, platelet count 153. Sodium 135 otherwise electrolytes are normal. BUN 21 and creatinine 0.64. Blood sugar 114. Capillary blood glucose running between 108 and 127. Calcium 8.3. Magnesium 2.1. Liver function tests normal. Chest x-ray reveals no pneumo, postop changes. Patient has been afebrile, heart rate in the 80s, blood pressure 117/42, pulse ox 96% on room air. REVIEW OF SYSTEMS Constitutional: No fever, no chills, no night sweats. No weight change. No we akness, generalized fatigue no lethargy. No daytime sleepiness. EENT: No headache. No blurred vision or double vision, no loss of vision. No loss of Hearing, no ringing in the ears, no dizziness. No nasal drainage or congestion. No epistaxis. No sore throat. Lungs: No shortness of breath, cough, no sputum production. No wheezing. Cardiovascular: Reports mild chest discomfort, no lower extremity edema. No palpitations. No paroxysmal nocturnal dyspnea. No orthopnea. No lightheadedness or dizziness. No syncopal episodes. Abdominal: No abdominal pain. No nausea, vomiting. No diarrhea. No constipation. No bloody or tarry stools. Reported loss of appetite. Genitourinary: No dysuria, increased frequency, urgency. No urinary retention. Musculoskeletal: No myalgias. No muscle weakness, no gait dysfunction, no frequent falls. No back pain. No neck pain. Integumentary: No wounds, no lesions. No rash or pruritus. No unusual bruising. No change in hair or nails. Neurologic: No aphasia. No facial droop. No change in mentation. No head injury. No headache. No paralysis. No paresthesia. Psychiatric: No depression. No anxiety. No mood swings. Endocrine: No abnormal blood sugars. No weight change. No excessive sweating or thirst. No cold intolerance. MEDICAL HISTORY Hypertension Hyperlipidemia Obstructive sleep apnea with CPAP SURGICAL HISTORY Arthroscopic of the left knee in 1986 Left inguinal hernia repair Right total hip arthroplasty 2014 Vasectomy 2002 Colonoscopy 2011 SOCIAL HISTORY Patient is a nonsmoker, social alcohol intake, no alcohol abuse, no illicit drug use or marijuana use. FAMILY HISTORY Father at age 82 with coronary artery disease status post CABG and had an MRSA infection. Mother at age 82 with a cyst in the bowel had infection and in the OR. Sister at age 73 from heart disease. Patient has one son and 2 daughters with no major medical problems. PHYSICAL EXAMINATION Gen: This is a 66-year-old male. His resting in ICU and appears to be comfortable and in no acute distress. HEENT: Head is atraumatic, normocephalic. Pupils equal, round. Sclerae is anicteric. Right sided IJ [place]-Nita catheter in place. NECK: Supple. No JVD. No lymphadenopathy. No thyromegaly. LUNGS: Clear to auscultation. No wheezes or rhonchi. No intercostal retractions. Chest tubes with serosanguineous drainage. Sternal dressing is dry and intact. Heart hugger in place. HEART: First heart sound is depressed, secondary sound is normal, no S3, no S4. ABDOMEN: Soft. Bowel sounds are present. No masses. No tenderness. EXTREMITIES: No pedal edema. No calf tenderness. Dorsalis pedis +2 bilaterally. NEUROLOGICAL: Patient is awake, alert and oriented x3. Cranial nerves 2 through 12 are grossly intact. ASSESSMENT AND PLAN 1. Coronary artery disease status post status post off-pump coronary artery bypass grafting 4 with SCHREIBER to LAD, left radial artery to obtuse marginal, SVG to first diagonal, SVG to EEA with ligation of the left atrial appendage and endovascular vein harvest of the left greater saphenous vein, endovascular harvest of the left radial artery, 01/15. Continue current plan per cardiothoracic team. Patient is currently on aspirin 325 mg daily, atorvastatin 80 mg at bedtime, Plavix 75 mg daily, Cardizem 30 mg oral every 6 hours, metoprolol tartrate 12.5 mg twice daily. 2. Hypertension. Triamterene/hydrochlorothiazide and Amlodipine on hold. Laura ent's been started on Cardizem 30 mg every 6 hours. 3. Hyperlipidemia. Continue patient on atorvastatin 80 mg at bedtime 4. Obstructive sleep apnea. Patient to continue CPAP when sleeping. 5. Hyperglycemia prophylaxis. Patient is on insulin drip and will be transitioned to NovoLog scale before meals and at bedtime. No history of diabetes. 6. GI prophylaxis. Protonix 40 mg daily. 7. DVT prophylaxis. Heparin subcu. DISCHARGE PLAN Most likely return home with home care. Impression and plan of care have been directed as dictated by the signing physician. Abigail Millan nurse practitioner acting as scribe for signing physician. Past Medical History Past Medical History: Hyperlipidemia, Hypertension, Osteoarthritis (OA), Pneumonia, Sleep Apnea/CPAP/BIPAP Additional Past Medical History / Comment(s): USES CPAP, HX KIDNEY STONES,PNEUMONIA YRS AGO History of Any Multi-Drug Resistant Organisms: None Reported Past Surgical History: Heart Catheterization, Joint Replacement, Orthopedic Surgery Additional Past Surgical History / Comment(s): RT HIP REPLACEMENT,LEFT INGUINAL HERNIA,LT KNEE ARTHROSCOPY Past Anesthesia/Blood Transfusion Reactions: No Reported Reaction Additional Past Anesthesia/Blood Transfusion Reaction / Comm: NO HX BLOOD TRANSFUSIONS Smoking Status: Never smoker - Past Family History Mother Family Medical History: No Reported History Father Family Medical History: Coronary Artery Disease (CAD) Additional Family Medical History / Comment(s): cabg AND VALVE REPLACEMENT AT AGE 82 Medications and Allergies Home Medications Medication Instructions Recorded Confirmed Type Aspirin 81 mg PO DAILY 01/10/22 01/10/22 History Atorvastatin [Lipitor] 80 mg PO HS 01/10/22 01/10/22 History Glucosamine HCl/Chondroitin Garcia 1 each PO DAILY 01/10/22 01/10/22 History [Glucosamine-Chondroitin Cap] Triamterene/Hydrochlorothiazid 1 each PO DAILY 01/10/22 01/10/22 History [Triamterene-Hctz 37.5-25 mg Cp] amLODIPine [Norvasc] 2.5 mg PO DAILY 01/10/22 01/10/22 History Allergies Allergy/AdvReac Type Severity Reaction Status Date / Time No Known Allergies Allergy Verified 01/12/22 10:43 Physical Exam Vitals: Vital Signs Temp Pulse Pulse Resp BP BP Pulse Ox 01/16/22 07:23 87 01/16/22 07:13 81 01/16/22 07:00 80 22 96 01/16/22 06:30 80 20 97 01/16/22 06:00 83 20 98 01/16/22 05:30 91 18 99 01/16/22 05:00 84 18 96 01/16/22 04:30 84 18 97 01/16/22 04:00 82 18 96 01/16/22 03:30 82 20 97 01/16/22 03:00 90 18 97 01/16/22 02:30 81 18 97 01/16/22 02:00 84 18 97 01/16/22 01:30 80 16 97 01/16/22 01:00 79 17 97 01/16/22 00:30 89 32 H 98 01/16/22 00:00 99.0 F 81 23 97 01/15/22 23:00 80 14 100 01/15/22 22:30 87 20 95 01/15/22 22:00 75 17 99 01/15/22 21:49 01/15/22 21:36 01/15/22 21:30 89 19 97 01/15/22 21:00 78 17 98 01/15/22 20:30 75 17 100 01/15/22 20:15 75 16 99 01/15/22 20:00 76 18 99 01/15/22 19:45 79 18 99 01/15/22 19:34 01/15/22 19:30 83 11 L 94 L 01/15/22 19:20 76 01/15/22 19:18 01/15/22 19:15 73 18 100 01/15/22 19:00 69 14 100 01/15/22 18:50 64 13 100 01/15/22 18:47 01/15/22 18:40 65 12 100 01/15/22 18:30 65 5 L 100 01/15/22 18:28 61 10 L 01/15/22 09:46 98.4 F 85 18 131/83 129/81 98 FiO2 01/16/22 07:23 01/16/22 07:13 01/16/22 07:00 01/16/22 06:30 01/16/22 06:00 01/16/22 05:30 01/16/22 05:00 01/16/22 04:30 01/16/22 04:00 01/16/22 03:30 01/16/22 03:00 01/16/22 02:30 01/16/22 02:00 01/16/22 01:30 01/16/22 01:00 01/16/22 00:30 01/16/22 00:00 01/15/22 23:00 01/15/22 22:30 01/15/22 22:00 01/15/22 21:49 40 01/15/22 21:36 40 01/15/22 21:30 01/15/22 21:00 01/15/22 20:30 01/15/22 20:15 01/15/22 20:00 50 01/15/22 19:45 01/15/22 19:34 50 01/15/22 19:30 60 01/15/22 19:20 01/15/22 19:18 60 01/15/22 19:15 01/15/22 19:00 01/15/22 18:50 01/15/22 18:47 100 01/15/22 18:40 01/15/22 18:30 100 01/15/22 18:28 01/15/22 09:46 Intake and Output 01/15/22 01/16/22 01/16/22 22:59 06:59 14:59 Intake Total 224.986 8901.045 629 Output Total 1740 1045 45 Balance -940.922 141.045 584 Intake: IV 739 633 89 ACETAMINOPHEN IV (For NPO 100 ) 1,000 mg In Empty Bag 1 bag @ 400 mls/hr IVPB Q6HR DYANA Rx#:[id number] Lactated Ringers 1,000 ml 250 350 50 @ 50 mls/hr IV .Q20H DYANA Rx#:[id number] Magnesium Sulfate-D5w Pmx 200 1 gm In Dextrose/Water 1 100ml.bag @ 100 mls/hr IVPB Q1H DYANA Rx#: [id number] NS Cardiac Calcs 140 70 30 NS Pressure Bag 45 63 9 Potassium Chloride 20 meq 100 In Water For Injection 1 100ml.bag @ 50 mls/hr IVPB ONCE STA Rx#: [id number] ceFAZolin 2 gm In Sodium 50 Chloride 0.9% 50 ml @ 100 mls/hr IVPB Q8HR DYANA Rx# :[id number] Intake, IV Titration 60.078 13.045 Amount Clevidipine Butyrate 25 6.667 mg In Empty Bag 1 bag @ 1 MG/HR 2 mls/hr IV .Q24H DYANA Rx#:[id number] Insulin Regular 100 unit 7.163 13.045 In Sodium Chloride 0.9% 100 ml @ Per Protocol IV .Q0M DYANA Rx#:[id number] propofoL 1,000 mg In 46.248 Empty Bag 1 bag @ Titrate IV .Q0M DYANA Rx#: [id number] Oral 540 540 Output: Chest Tube Drainage 520 430 0 MS and LP 520 430 0 Urine 720 615 45 Estimated Blood Loss 500 Other: Voiding Method Indwelling Catheter Indwelling Catheter Weight 100.9 kg ABP, PAP, CO, CI - Last 8 Hours Arterial Blood Pressure 117/42 Arterial Blood Pressure 108/37 Arterial Blood Pressure 114/46 Arterial Blood Pressure 130/54 Arterial Blood Pressure 120/53 Arterial Blood Pressure 119/54 Arterial Blood Pressure 117/52 Arterial Blood Pressure 114/52 Arterial Blood Pressure 116/53 Arterial Blood Pressure 117/51 Arterial Blood Pressure 117/53 Arterial Blood Pressure 119/54 Arterial Blood Pressure 113/53 Arterial Blood Pressure 124/56 Pulmonary Artery Pressure 22/5 Pulmonary Artery Pressure 16/2 Pulmonary Artery Pressure 12/1 Pulmonary Artery Pressure 27/15 Pulmonary Artery Pressure 25/13 Pulmonary Artery Pressure 25/14 Pulmonary Artery Pressure 27/12 Pulmonary Artery Pressure 29/12 Pulmonary Artery Pressure 32/14 Pulmonary Artery Pressure 30/13 Pulmonary Artery Pressure 28/12 Pulmonary Artery Pressure 26/13 Pulmonary Artery Pressure 27/11 Pulmonary Artery Pressure 28/13 Cardiac Output 8.5 Cardiac Output 8.9 Cardiac Output 8.4 Cardiac Output 8.6 Cardiac Index 3.8 Cardiac Index 3.9 Cardiac Index 3.7 Cardiac Index 3.8 Results CBC & Chem 7: 01/16/22 05:00 01/16/22 09:50 Labs: Abnormal Lab Results - Last 24 Hours (Table) 01/12/22 01/15/22 01/15/22 Range/Units 09:18 14:49 15:41 RBC (4.30-5.90) m/uL Hgb (13.0-17.5) gm/dL Hct (39.0-53.0) % Plt Count (150-450) k/uL Neutrophils # (1.3-7.7) k/uL Lymphocytes # (1.0-4.8) k/uL PT (9.0-12.0) sec INR (<1.2) APTT (22.0-30.0) sec ABG pH 7.46 H (7.35-7.45) ABG pCO2 (35-45) mmHg ABG pO2 >420 H >420 H (83-108) mmHg ABG HCO3 26 H (21-25) mmol/L ABG Total CO2 26 H 27 H (19-24) mmol/L ABG O2 Saturation 100.0 H 99.9 H (94-97) % ABG Hematocrit (34.0-46.0) % ABG Glucose 110 H (75-99) mg/dL Hemoglobin (13.0-17.5) gm/dL Sodium (137-145) mmol/L Chloride (98-107) mmol/L BUN (9-20) mg/dL Creatinine (0.66-1.25) mg/dL Glucose (74-99) mg/dL POC Glucose (mg/dL) (70-110) mg/dL Calcium (8.4-10.2) mg/dL Magnesium (1.6-2.3) mg/dL Total Protein (6.3-8.2) g/dL Arterial Blood Glucose 110 H (75-99) mg/dL Crossmatch See Detail 01/15/22 01/15/22 01/15/22 Range/Units 16:36 17:08 18:30 RBC 3.42 L (4.30-5.90) m/uL Hgb 10.3 L (13.0-17.5) gm/dL Hct 29.5 L (39.0-53.0) % Plt Count 144 L (150-450) k/uL Neutrophils # 8.6 H (1.3-7.7) k/uL Lymphocytes # (1.0-4.8) k/uL PT (9.0-12.0) sec INR (<1.2) APTT (22.0-30.0) sec ABG pH (7.35-7.45) ABG pCO2 (35-45) mmHg ABG pO2 268 H 229 H (83-108) mmHg ABG HCO3 (21-25) mmol/L ABG Total CO2 (19-24) mmol/L ABG O2 Saturation 99.7 H 99.5 H (94-97) % ABG Hematocrit 32 L (34.0-46.0) % ABG Glucose 109 H 108 H (75-99) mg/dL Hemoglobin 11.6 L 10.5 L (13.0-17.5) gm/dL Sodium (137-145) mmol/L Chloride (98-107) mmol/L BUN (9-20) mg/dL Creatinine (0.66-1.25) mg/dL Glucose (74-99) mg/dL POC Glucose (mg/dL) (70-110) mg/dL Calcium (8.4-10.2) mg/dL Magnesium (1.6-2.3) mg/dL Total Protein (6.3-8.2) g/dL Arterial Blood Glucose 109 H 108 H (75-99) mg/dL Crossmatch 01/15/22 01/15/22 01/15/22 Range/Units 18:30 18:30 18:34 RBC (4.30-5.90) m/uL Hgb (13.0-17.5) gm/dL Hct (39.0-53.0) % Plt Count (150-450) k/uL Neutrophils # (1.3-7.7) k/uL Lymphocytes # (1.0-4.8) k/uL PT 12.6 H (9.0-12.0) sec INR 1.2 H (<1.2) APTT 30.2 H (22.0-30.0) sec ABG pH (7.35-7.45) ABG pCO2 (35-45) mmHg ABG pO2 (83-108) mmHg ABG HCO3 (21-25) mmol/L ABG Total CO2 (19-24) mmol/L ABG O2 Saturation (94-97) % ABG Hematocrit (34.0-46.0) % ABG Glucose (75-99) mg/dL Hemoglobin (13.0-17.5) gm/dL Sodium (137-145) mmol/L Chloride 109 H (98-107) mmol/L BUN 22 H (9-20) mg/dL Creatinine (0.66-1.25) mg/dL Glucose 109 H (74-99) mg/dL POC Glucose (mg/dL) 118 H (70-110) mg/dL Calcium 8.0 L (8.4-10.2) mg/dL Magnesium 1.5 L (1.6-2.3) mg/dL Total Protein 5.3 L (6.3-8.2) g/dL Arterial Blood Glucose (75-99) mg/dL Crossmatch 01/15/22 01/15/22 01/15/22 Range/Units 19:07 19:10 19:54 RBC (4.30-5.90) m/uL Hgb (13.0-17.5) gm/dL Hct (39.0-53.0) % Plt Count (150-450) k/uL Neutrophils # (1.3-7.7) k/uL Lymphocytes # (1.0-4.8) k/uL PT (9.0-12.0) sec INR (<1.2) APTT (22.0-30.0) sec ABG pH 7.32 L (7.35-7.45) ABG pCO2 47 H (35-45) mmHg ABG pO2 374 H (83-108) mmHg ABG HCO3 (21-25) mmol/L ABG Total CO2 26 H (19-24) mmol/L ABG O2 Saturation 100.0 H (94-97) % ABG Hematocrit (34.0-46.0) % ABG Glucose (75-99) mg/dL Hemoglobin (13.0-17.5) gm/dL Sodium (137-145) mmol/L Chloride (98-107) mmol/L BUN (9-20) mg/dL Creatinine (0.66-1.25) mg/dL Glucose (74-99) mg/dL POC Glucose (mg/dL) 122 H 144 H (70-110) mg/dL Calcium (8.4-10.2) mg/dL Magnesium (1.6-2.3) mg/dL Total Protein (6.3-8.2) g/dL Arterial Blood Glucose (75-99) mg/dL Crossmatch 01/15/22 01/15/22 01/15/22 Range/Units 21:01 22:08 22:10 RBC 3.47 L (4.30-5.90) m/uL Hgb 10.5 L (13.0-17.5) gm/dL Hct 29.7 L (39.0-53.0) % Plt Count 145 L (150-450) k/uL Neutrophils # 9.0 H (1.3-7.7) k/uL Lymphocytes # 0.8 L (1.0-4.8) k/uL PT (9.0-12.0) sec INR (<1.2) APTT (22.0-30.0) sec ABG pH (7.35-7.45) ABG pCO2 (35-45) mmHg ABG pO2 (83-108) mmHg ABG HCO3 (21-25) mmol/L ABG Total CO2 (19-24) mmol/L ABG O2 Saturation (94-97) % ABG Hematocrit (34.0-46.0) % ABG Glucose (75-99) mg/dL Hemoglobin (13.0-17.5) gm/dL Sodium (137-145) mmol/L Chloride (98-107) mmol/L BUN (9-20) mg/dL Creatinine (0.66-1.25) mg/dL Glucose (74-99) mg/dL POC Glucose (mg/dL) 155 H 171 H (70-110) mg/dL Calcium (8.4-10.2) mg/dL Magnesium (1.6-2.3) mg/dL Total Protein (6.3-8.2) g/dL Arterial Blood Glucose (75-99) mg/dL Crossmatch 01/15/22 01/15/22 01/15/22 Range/Units 22:30 22:52 23:57 RBC (4.30-5.90) m/uL Hgb (13.0-17.5) gm/dL Hct (39.0-53.0) % Plt Count (150-450) k/uL Neutrophils # (1.3-7.7) k/uL Lymphocytes # (1.0-4.8) k/uL PT (9.0-12.0) sec INR (<1.2) APTT (22.0-30.0) sec ABG pH (7.35-7.45) ABG pCO2 (35-45) mmHg ABG pO2 119 H (83-108) mmHg ABG HCO3 (21-25) mmol/L ABG Total CO2 26 H (19-24) mmol/L ABG O2 Saturation 99.2 H (94-97) % ABG Hematocrit (34.0-46.0) % ABG Glucose (75-99) mg/dL Hemoglobin (13.0-17.5) gm/dL Sodium (137-145) mmol/L Chloride (98-107) mmol/L BUN (9-20) mg/dL Creatinine (0.66-1.25) mg/dL Glucose (74-99) mg/dL POC Glucose (mg/dL) 149 H 132 H (70-110) mg/dL Calcium (8.4-10.2) mg/dL Magnesium (1.6-2.3) mg/dL Total Protein (6.3-8.2) g/dL Arterial Blood Glucose (75-99) mg/dL Crossmatch 01/16/22 01/16/22 01/16/22 Range/Units 00:40 00:52 01:56 RBC 3.50 L (4.30-5.90) m/uL Hgb 11.0 L (13.0-17.5) gm/dL Hct 30.0 L (39.0-53.0) % Plt Count (150-450) k/uL Neutrophils # 8.6 H (1.3-7.7) k/uL Lymphocytes # 0.4 L (1.0-4.8) k/uL PT (9.0-12.0) sec INR (<1.2) APTT (22.0-30.0) sec ABG pH (7.35-7.45) ABG pCO2 (35-45) mmHg ABG pO2 (83-108) mmHg ABG HCO3 (21-25) mmol/L ABG Total CO2 (19-24) mmol/L ABG O2 Saturation (94-97) % ABG Hematocrit (34.0-46.0) % ABG Glucose (75-99) mg/dL Hemoglobin (13.0-17.5) gm/dL Sodium (137-145) mmol/L Chloride (98-107) mmol/L BUN (9-20) mg/dL Creatinine (0.66-1.25) mg/dL Glucose (74-99) mg/dL POC Glucose (mg/dL) 124 H 113 H (70-110) mg/dL Calcium (8.4-10.2) mg/dL Magnesium (1.6-2.3) mg/dL Total Protein (6.3-8.2) g/dL Arterial Blood Glucose (75-99) mg/dL Crossmatch 01/16/22 01/16/22 01/16/22 Range/Units 03:01 04:09 05:00 RBC 3.59 L (4.30-5.90) m/uL Hgb 11.1 L (13.0-17.5) gm/dL Hct 30.8 L (39.0-53.0) % Plt Count (150-450) k/uL Neutrophils # 8.2 H (1.3-7.7) k/uL Lymphocytes # 0.6 L (1.0-4.8) k/uL PT (9.0-12.0) sec INR (<1.2) APTT (22.0-30.0) sec ABG pH (7.35-7.45) ABG pCO2 (35-45) mmHg ABG pO2 (83-108) mmHg ABG HCO3 (21-25) mmol/L ABG Total CO2 (19-24) mmol/L ABG O2 Saturation (94-97) % ABG Hematocrit (34.0-46.0) % ABG Glucose (75-99) mg/dL Hemoglobin (13.0-17.5) gm/dL Sodium (137-145) mmol/L Chloride (98-107) mmol/L BUN (9-20) mg/dL Creatinine (0.66-1.25) mg/dL Glucose (74-99) mg/dL POC Glucose (mg/dL) 128 H 127 H (70-110) mg/dL Calcium (8.4-10.2) mg/dL Magnesium (1.6-2.3) mg/dL Total Protein (6.3-8.2) g/dL Arterial Blood Glucose (75-99) mg/dL Crossmatch 01/16/22 01/16/22 01/16/22 Range/Units 05:00 05:03 06:12 RBC (4.30-5.90) m/uL Hgb (13.0-17.5) gm/dL Hct (39.0-53.0) % Plt Count (150-450) k/uL Neutrophils # (1.3-7.7) k/uL Lymphocytes # (1.0-4.8) k/uL PT (9.0-12.0) sec INR (<1.2) APTT (22.0-30.0) sec ABG pH (7.35-7.45) ABG pCO2 (35-45) mmHg ABG pO2 (83-108) mmHg ABG HCO3 (21-25) mmol/L ABG Total CO2 (19-24) mmol/L ABG O2 Saturation (94-97) % ABG Hematocrit (34.0-46.0) % ABG Glucose (75-99) mg/dL Hemoglobin (13.0-17.5) gm/dL Sodium 135 L (137-145) mmol/L Chloride (98-107) mmol/L BUN 21 H (9-20) mg/dL Creatinine 0.64 L (0.66-1.25) mg/dL Glucose 114 H (74-99) mg/dL POC Glucose (mg/dL) 116 H 123 H (70-110) mg/dL Calcium 8.3 L (8.4-10.2) mg/dL Magnesium (1.6-2.3) mg/dL Total Protein 5.4 L (6.3-8.2) g/dL Arterial Blood Glucose (75-99) mg/dL Crossmatch 01/16/22 Range/Units 07:03 RBC (4.30-5.90) m/uL Hgb (13.0-17.5) gm/dL Hct (39.0-53.0) % Plt Count (150-450) k/uL Neutrophils # (1.3-7.7) k/uL Lymphocytes # (1.0-4.8) k/uL PT (9.0-12.0) sec INR (<1.2) APTT (22.0-30.0) sec ABG pH (7.35-7.45) ABG pCO2 (35-45) mmHg ABG pO2 (83-108) mmHg ABG HCO3 (21-25) mmol/L ABG Total CO2 (19-24) mmol/L ABG O2 Saturation (94-97) % ABG Hematocrit (34.0-46.0) % ABG Glucose (75-99) mg/dL Hemoglobin (13.0-17.5) gm/dL Sodium (137-145) mmol/L Chloride (98-107) mmol/L BUN (9-20) mg/dL Creatinine (0.66-1.25) mg/dL Glucose (74-99) mg/dL POC Glucose (mg/dL) 122 H (70-110) mg/dL Calcium (8.4-10.2) mg/dL Magnesium (1.6-2.3) mg/dL Total Protein (6.3-8.2) g/dL Arterial Blood Glucose (75-99) mg/dL Crossmatch
[2022-01-16 16:48] LABS: Glucose,Whole Blood 150 mg/dL (70-110)
[2022-01-16] MEDS: INSULIN ASPART (NovoLOG) 100 UNIT/ML VIAL SQ SCH ×2 (18:21→22:09)
[2022-01-16] MEDS: METOPROLOL TARTRATE 25 MG TAB PO SCH (21:28)
[2022-01-16] MEDS: SENNOSIDES-DOCUSATE SODIUM 1 EACH TAB PO SCH (21:28)
[2022-01-16 21:41] LABS: Glucose,Whole Blood 156 mg/dL (70-110)
[2022-01-17] MEDS: DILTIAZEM ORAL 30 MG TAB PO SCH ×5 (00:29→23:19)
[2022-01-17] MEDS: HEPARIN SODIUM,PORCINE/PF 5,000 UNIT/0.5 ML SYRINGE SQ SCH ×4 (00:29→23:18)
[2022-01-17] MEDS: LACTATED RINGERS 1,000 ML IV SCH (00:30)
[2022-01-17] MEDS: HYDROcodone/APAP 5-325MG 1 EACH TAB PO PRN ×4 (05:15→21:01)
[2022-01-17 05:28] LABS: Basophils # (A) 0.1 k/uL (0-0.2); Basophils % (A) 0 %; Eosinophils # (A) 0.1 k/uL (0-0.7); Eosinophils % (A) 1 %; HCT 30.3 % (39.0-53.0); HGB 10.7 gm/dL (13.0-17.5); Lymphocytes # (A) 0.7 k/uL (1.0-4.8); Lymphocytes % (A) 6 %; MCH 30.4 pg (25.0-35.0); MCHC 35.3 g/dL (31.0-37.0); Mean Platelet Volume 8.8; Monocytes # (A) 0.7 k/uL (0-1.0); Monocytes % (A) 6 %; Neutrophils # (A) 10.2 k/uL (1.3-7.7); Neutrophils % (A) 86 %; Platelet Count 175 k/uL (150-450); RBC 3.52 m/uL (4.30-5.90); RDW 12.5 % (11.5-15.5); WBC 11.9 k/uL (3.8-10.6)
[2022-01-17 05:34] LABS: Ionized Calcium 5.1 mg/dL (4.5-5.3)
[2022-01-17 05:47] LABS: ALT 15 U/L (4-49); AST 27 U/L (17-59); African American GFR (CKD) >90 (>60 ml/min/1.73 sqM); Albumin 3.4 g/dL (3.5-5.0); Alkaline Phosphatase 40 U/L (38-126); Anion Gap 3 mmol/L; Blood Urea Nitrogen 23 mg/dL (9-20); Calcium 8.4 mg/dL (8.4-10.2); Carbon Dioxide 24 mmol/L (22-30); Chloride 106 mmol/L (98-107); Glucose 145 mg/dL (74-99); Non-African American GFR(CKD) >90 (>60 ml/min/1.73 sqM); Potassium 4.5 mmol/L (3.5-5.1); Sodium 133 mmol/L (137-145); Total Bilirubin 1.4 mg/dL (0.2-1.3); Total Protein 5.3 g/dL (6.3-8.2)
[2022-01-17 06:59] LABS: Glucose,Whole Blood 152 mg/dL (70-110)
--- NOTE | 2022-01-17 07:09 | XR ---
EXAMINATION TYPE: XR chest 1V portable DATE OF EXAM: 01/17/2022 5:32 AM COMPARISON: Chest radiograph from one day prior. TECHNIQUE: XR chest 1V portable Portable AP radiograph of the chest. CLINICAL INDICATION:Male, 66 years old with history of Post Operative Cardiac Surgery; FINDINGS: Lungs/Pleura: There is no evidence of pleural effusion, focal consolidation, or pneumothorax. Pulmonary vascularity: Unremarkable. Heart/mediastinum: Cardiomediastinal silhouette is unremarkable. Musculoskeletal: No acute osseous pathology. Midline sternotomy wires are noted. Other findings: None Lines/Tubes: Left thoracotomy tube is present without evidence of pneumothorax. Drainage tube with tip projecting over the mediastinum. Removal of [place]-Nita catheter persistent right neck tubing is present. IMPRESSION: 1. Stable postsurgical changes. 2. Stable support lines and tubes. 3. Tubing projects over the right lower neck unclear whether this is outside the patient or within th e patient. Clinical correlation advised.
[2022-01-17] MEDS ORDERED: FUROSEMIDE 10 MG/ML 2 ML VIAL IV ONE (08:21)
--- NOTE | 2022-01-17 08:48 | P.PN ---
Subjective Progress Note Date: 01/17/22 Principal diagnosis: Coronary artery disease. Previous medical history of hypertension, hyperlipidemia, arthritis, previous tobacco dependence, obstructive sleep apnea with home CPAP use, remote history of pneumonia, and family history of premature coronary artery disease with father diagnosed before the age of 60 POD #2 off-pump coronary artery bypass grafting 4 with left internal mammary artery to the left anterior descending artery, left radial artery to the obtuse marginal artery, reverse saphenous vein graft to the first diagonal artery, reverse saphenous vein graft to the posterior descending coronary artery, ligation of the left atrial appendage with a 35 mm AtriCure clip, endovascular vein harvest of the left greater saphenous vein and left radial artery. In traoperative transesophageal echocardiogram performed by anesthesia Postoperative acute blood loss anemia, expected given hemodilution The patient was seen and examined this morning sitting up in a recliner in the intensive care unit in no acute distress eating breakfast. Currently in sinus rhythm and hemodynamically stable on no inotropes or pressors. States pain is controlled on current medication regimen, denies shortness of breath. Currently on room air and achieving 1250 mL on his incentive spirometry. He had a relatively uneventful evening. Right internal jugular Cordis, right radial arterial line, mediastinal/left pleural chest tubes remain. Patient ambulated in [place] yesterday without difficulty. No other new concerns. Objective - Vital Signs Vital signs: Vital Signs Temp 98.4 F 01/17/22 04:00 Pulse 92 01/17/22 07:56 Resp 24 01/17/22 07:00 BP 104/56 01/17/22 07:56 Pulse Ox 93 L 01/17/22 07:00 FiO2 40 01/15/22 21:49 Intake & Output 01/16/22 01/17/22 01/17/22 18:59 06:59 18:59 Intake Total 1744.023 672 56 Output Total 725 935 25 Balance 1019.023 -263 31 Weight 100.9 kg 102.2 kg Intake: IV 740 672 56 Lactated Ringers 1,000 ml 600 600 50 @ 20 mls/hr IV .Q24H DYANA Rx#:[id number] NS Cardiac Calcs 50 NS Pressure Bag 90 72 6 Intake, IV Titration 14.023 Amount Insulin Regular 100 unit 14.023 In Sodium Chloride 0.9% 100 ml @ Per Protocol IV .Q0M DYANA Rx#:[id number] Oral 990 Output: Chest Tube Drainage 325 295 MS and LP 325 295 Urine 400 640 25 Uretheral (Lim) 250 Other: Voiding Method Indwelling Catheter Indwelling Catheter ABP, PAP, CO, CI - Last Documented Arterial Blood Pressure 105/60 Pulmonary Artery Pressure 19/11 Cardiac Output 7 Cardiac Index 3.1 - Exam CONSTITUTIONAL: Appears comfortable, cooperative, no acute distress RESPIRATORY: Lungs sounds diminished bilaterally. Respirations even, nonlabored. Currently on room air with oxygen saturation 94%. Able to achieve 1250 mL on incentive spirometry. Strong cough. CARDIOVASCULAR: S1, S2 present. Regular rate and rhythm, sinus rhythm on telemetry. Sternum stable. Palpable peripheral pulses bilaterally. No edema present. No calf pain or tenderness noted. Heart hugger in place with patient demonstrating appropriate use. Antiembolism stockings, SCDs present. GASTROINTESTINAL: Abdomen soft, nontender, nondistended. Active bowel sounds present 4 quadrants. Tolerating clear liquid diet. Positive flatus GENITOURINARY: Lim present draining clear, yellow urine. Output overnight 30-60 mL per hour, 790 mL in the last 24 hours INTEGUMENTARY: Skin is warm and dry with evidence of good perfusion. Anterior chest incision well approximated and covered with dry intact dressing. Left lower extremity EVH site well approximated without redness or drainage. NEUROLOGIC: Cranial nerves II through XII intact MUSKULOSKELETAL: Able to move all extremities, strength equal bilaterally, gait normal PSYCHIATRIC: Alert and oriented to person place and time, appropriate affect, intact judgment and insight INVASIVE LINES AND TUBES: Mediastinal/left pleural chest tubes present and connected to wall suction, no air leaks present, 220 mL serosanguineous drainage overnight, 600 mL in the last 24 hours. Right internal jugular Cordis, right radial arterial line present. Last CVP 12. - Allied health notes Allied health notes reviewed: nursing - Labs CBC & Chem 7: 01/17/22 05:00 01/17/22 05:00 Labs: Abnormal Lab Results - Last 24 Hours (Table) 01/16/22 01/16/22 01/16/22 Range/Units 09:47 11:55 16:45 WBC (3.8-10.6) k/uL RBC (4.30-5.90) m/uL Hgb (13.0-17.5) gm/dL Hct (39.0-53.0) % Neutrophils # (1.3-7.7) k/uL Lymphocytes # (1.0-4.8) k/uL Sodium (137-145) mmol/L BUN (9-20) mg/dL Glucose (74-99) mg/dL POC Glucose (mg/dL) 120 H 130 H 150 H (70-110) mg/dL Total Bilirubin (0.2-1.3) mg/dL Total Protein (6.3-8.2) g/dL Albumin (3.5-5.0) g/dL 01/16/22 01/17/22 01/17/22 Range/Units 21:39 05:00 05:00 WBC 11.9 H (3.8-10.6) k/uL RBC 3.52 L (4.30-5.90) m/uL Hgb 10.7 L (13.0-17.5) gm/dL Hct 30.3 L (39.0-53.0) % Neutrophils # 10.2 H (1.3-7.7) k/uL Lymphocytes # 0.7 L (1.0-4.8) k/uL Sodium 133 L (137-145) mmol/L BUN 23 H (9-20) mg/dL Glucose 145 H (74-99) mg/dL POC Glucose (mg/dL) 156 H (70-110) mg/dL Total Bilirubin 1.4 H (0.2-1.3) mg/dL Total Protein 5.3 L (6.3-8.2) g/dL Albumin 3.4 L (3.5-5.0) g/dL 01/17/22 Range/Units 06:57 WBC (3.8-10.6) k/uL RBC (4.30-5.90) m/uL Hgb (13.0-17.5) gm/dL Hct (39.0-53.0) % Neutrophils # (1.3-7.7) k/uL Lymphocytes # (1.0-4.8) k/uL Sodium (137-145) mmol/L BUN (9-20) mg/dL Glucose (74-99) mg/dL POC Glucose (mg/dL) 152 H (70-110) mg/dL Total Bilirubin (0.2-1.3) mg/dL Total Protein (6.3-8.2) g/dL Albumin (3.5-5.0) g/dL - Imaging and Cardiology Chest x-ray: report reviewed, image reviewed Assessment and Plan Assessment: 1. Coronary artery disease, status post four-vessel off-pump CABG 2. History of hypertension 3. Hyperlipidemia, treated, cholesterol 102, LDL 41 4. Arthritis 5. Previous tobacco dependence, preoperative FEV1 93% of predicted 6. Obstructive sleep apnea with home CPAP use 7. Remote history of pneumonia 8. Family history of premature coronary artery disease with father diagnosed before the age of 60 9. Postoperative acute blood loss anemia, expected given hemodilution Plan: 1. Continue aspirin, statin, Plavix, beta luis therapy. Will increase beta luis therapy as tolerated 2. Continue calcium channel luis for radial artery spasm prophylaxis 3. Encourage incentive spirometry is 10 times every hour while awake. Bronchodilators, CPAP management per pulmonology 4. Increase activity, ambulate as tolerated. PT/OT/cardiac rehab consulted 5. Will monitor daily labs and x-rays. Electrolyte replacement per protocol. Will give 20 mg IVP lasix today 6. GI/DVT prophylaxis 7. Insulin management per primary care service. Patient is not diabetic, hemoglobin A1c 5.8% 8. Pain control with current medication regimen 9. Discontinue cordis, arterial line 10. Will discontinue mediastinal chest tube, continue left pleural chest tube for another 24 hours 11. Discontinue Lim catheter. May bladder scan and straight cath for >300mL residual 12. Strict accurate intake and output. Daily weights 13. Will place transfer orders for 3 S. cardiac stepdown, may transfer when bed available 14. More recommendations to follow
[2022-01-17] MEDS: METOPROLOL TARTRATE 25 MG TAB PO SCH ×3 (08:50→23:19)
[2022-01-17] MEDS: PANTOPRAZOLE 40 MG TABLET PO SCH (08:50)
[2022-01-17] MEDS: ASPIRIN 325 MG TAB PO SCH (08:50)
[2022-01-17] MEDS: CLOPIDOGREL 75 MG TAB PO SCH (08:50)
[2022-01-17] MEDS: INSULIN ASPART (NovoLOG) 100 UNIT/ML VIAL SQ SCH ×4 (08:51→21:02)
[2022-01-17] MEDS: IPRATROPIUM-ALBUTEROL 3 ML NEB INHALATION SCH ×5 (09:29→19:33)
--- NOTE | 2022-01-17 11:29 | P.PN ---
Subjective Progress Note Date: 01/17/22 This is a pleasant 66-year-old male patient with a known history of chronic tobacco dependence, chronic obstructive sleep apnea on home CPAP, hypertension, hyperlipidemia, arthritis. He was found to havesignificant coronary artery disease and presented here yesterday for an elective bypass surgery. He had undergone an off-pump coronary artery bypass grafting 4 with a SCHREIBER to the LAD, left radial artery to the obtuse marginal, SVG to the first diagonal, SVG to the PDA. He also had left atrial clip placed. He was extubated in less than 6 hours. He is currently seen in the intensive care unit. Sitting up in the chair at the bedside. Currently maintaining good O2 saturations in the 90s on room air. He is on a Cardizem drip at 5 mg per hour. Nitroglycerin drip has been weaned off. He is on a insulin drip at 1.5 units per hour. Lactated Ringer's at 50 MLS per hour. chest x-ray reveals interval removal endotracheal and an nasogastric tube. Mediastinal and left pleural chest tubes remain in place. Right IJ Humboldt-Nita catheter in place. No evidence of pneumothorax. There is some left basilar atelectasis. white count 9.6. Hemoglobin 11.1. Sodium 135. Potassium 3.8. Bicarb 24. BUN 21. Creatinine 0.64. Glucose 120. Albumin 3.6. cardiac output 7. Cardiac index 3.1. PA pressures 19/7. He is continued on bronchodilators. Received albumin. Heparin for DVT prophylaxis. The patient is seen today 01/17/2022 in follow-up in the intensive care unit. He is currently sitting up in a chair at the bedside. Awake and alert in no acute distress. He is maintaining good O2 saturations in the 90s on room air. No IV fluids currently. Rest x-ray reveals left thoracotomy to present without evidence of pneumothorax. Chest tubes within the mediastinum. Post Humboldt-Nita removal. Cordis is present. White count 11.9. Hemoglobin 10.7. Sodium 133. Potassium 4.5. BUN 23. Creatinine 0.78. Glucose 145. Albumin 3.4. He is continued on DuoNeb inhalations. Continues to work well with the incentive spirometer. Heparin for DVT prophylaxis. Objective - Vital Signs Vital signs: Vital Signs Temp 98.2 F 01/17/22 08:00 Pulse 96 01/17/22 10:00 Resp 30 H 01/17/22 10:00 BP 129/63 01/17/22 10:00 Pulse Ox 95 01/17/22 10:27 FiO2 40 01/15/22 21:49 Intake & Output 01/16/22 01/17/22 01/17/22 18:59 06:59 18:59 Intake Total 1744.023 672 312 Output Total 725 935 25 Balance 1019.023 -263 287 Weight 100.9 kg 102.2 kg Intake: IV 740 672 112 Lactated Ringers 1,000 ml 600 600 100 @ 20 mls/hr IV .Q24H DYANA Rx#:[id number] NS Cardiac Calcs 50 NS Pressure Bag 90 72 12 Intake, IV Titration 14.023 Amount Insulin Regular 100 unit 14.023 In Sodium Chloride 0.9% 100 ml @ Per Protocol IV .Q0M DYANA Rx#:[id number] Oral 990 200 Output: Chest Tube Drainage 325 295 MS and LP 325 295 Urine 400 640 25 Uretheral (Lim) 250 Other: Voiding Method Indwelling Catheter Indwelling Catheter Indwelling Catheter ABP, PAP, CO, CI - Last Documented Arterial Blood Pressure 96/58 Pulmonary Artery Pressure 19/11 Cardiac Output 7 Cardiac Index 3.1 - Exam GENERAL EXAM: Alert, pleasant 66-year-old male, up in a chair, on room air, fairly comfortable in no apparent distress. HEAD: Normocephalic. EYES: Normal reaction of pupils, equal size. NOSE: Clear with pink turbinates. THROAT: No erythema or exudates. NECK: Right IJ Cordis in place. No masses, no JVD. CHEST: Sternal dressing dry and intact. Heart Hugger in place. Mediastinal and left pleural chest tubes in place.. LUNGS: Equal air entry with few scattered rhonchi. CVS: S1 and S2 normal with no audible murmur, regular rhythm. ABDOMEN: No hepatosplenomegaly, normal bowel sounds, no guarding or rigidity. SPINE: No scoliosis or deformity SKIN: No rashes CENTRAL NERVOUS SYSTEM: No focal deficits, tone is normal in all 4 extremities. EXTREMITIES: Right radial arterial line in place. There is no peripheral edema. No clubbing, no cyanosis. Peripheral pulses are intact. - Labs CBC & Chem 7: 01/17/22 05:00 01/17/22 05:00 Labs: Abnormal Lab Results - Last 24 Hours (Table) 01/16/22 01/16/22 01/16/22 Range/Units 11:55 16:45 21:39 WBC (3.8-10.6) k/uL RBC (4.30-5.90) m/uL Hgb (13.0-17.5) gm/dL Hct (39.0-53.0) % Neutrophils # (1.3-7.7) k/uL Lymphocytes # (1.0-4.8) k/uL Sodium (137-145) mmol/L BUN (9-20) mg/dL Glucose (74-99) mg/dL POC Glucose (mg/dL) 130 H 150 H 156 H (70-110) mg/dL Total Bilirubin (0.2-1.3) mg/dL Total Protein (6.3-8.2) g/dL Albumin (3.5-5.0) g/dL 01/17/22 01/17/22 01/17/22 Range/Units 05:00 05:00 06:57 WBC 11.9 H (3.8-10.6) k/uL RBC 3.52 L (4.30-5.90) m/uL Hgb 10.7 L (13.0-17.5) gm/dL Hct 30.3 L (39.0-53.0) % Neutrophils # 10.2 H (1.3-7.7) k/uL Lymphocytes # 0.7 L (1.0-4.8) k/uL Sodium 133 L (137-145) mmol/L BUN 23 H (9-20) mg/dL Glucose 145 H (74-99) mg/dL POC Glucose (mg/dL) 152 H (70-110) mg/dL Total Bilirubin 1.4 H (0.2-1.3) mg/dL Total Protein 5.3 L (6.3-8.2) g/dL Albumin 3.4 L (3.5-5.0) g/dL Assessment and Plan Assessment: Coronary artery disease status post coronary artery bypass grafting 4 with a SCHREIBER to the LAD, left radial artery to the obtuse marginal artery, saphenous vein grafts to the first diagonal and PDA. Left atrial clip. Postoperative day #2. History of previous chronic tobacco dependence FEV1 value 93% of predicted Hyperlipidemia Hypertension Obstructive sleep apnea with CPAP Plan: The patient was seen and evaluated Chest x-ray, labs and medications reviewed Stable and on room air Encouraged the increased use of the incentive spirometer Remains on bronchodilators Increase his activity as tolerated Plan is to transfer to the 3 S. once bed available We will continue to follow and make further recommendations based on his clinical status I have personally seen and examined the patient, performed the documentation and the assessment and plan as written. Number of minutes spent on the visit: 10.
[2022-01-17 11:36] LABS: Glucose,Whole Blood 161 mg/dL (70-110)
--- NOTE | 2022-01-17 13:44 | P.PN ---
Subjective Progress Note Date: 01/17/22 HISTORY OF PRESENT ILLNESS This is a 66-year-old male patient with past history of hypertension, hyperlipidemia, obstructive sleep apnea with CPAP. Patient was establish as new patient in September of this year. He was having exertional dyspnea and a CT heart with calcium score was ordered. He came back elevated and patient was referred to Dr. Gilbert. Stress test which was positive and cardiac catheterization revealed three-vessel coronary artery disease with 90% or more stenosis of the left anterior descending coronary artery after takeoff of the first diagonal. The first diagonal was 80-90% stenosis. Left main normal. Circumflex coronary artery lesion to second obtuse marginal branches, the first of which was completely occluded and fills via collateral. The second was 80-85% stenosed. Right coronary artery was 80% stenosis and leads to PDA and DORINA. Patient was then referred to cardiothoracic surgeon to be evaluated for coronary artery bypass grafting. Echocardiogram performed 01/18 revealed EF of 50-55%, mild concentric left hypertrophy, mild mitral regurgitation, mild tricuspid regurgitation. Patient has been brought into [facility] on 01/[address] Watt. He is status post off-pump coronary artery bypass grafting 4 with SCHREIBER to LAD, left radial artery to obtuse marginal, SVG to first diagonal, SVG to EEA with ligation of the left atrial appendage and endovascular vein harvest of the left greater saphenous vein, endovascular harvest of the left radial artery. Patient was successfully extubated last night and utilize CPAP through the night. He has been hemodynamically stable. Patient is found sitting in a chair. He states his pain is controlled. He denies shortness of breath. He states he has stood only above plan is for ambulation later today. He is on a clear liquid diet and tolerating. Patient is on insulin drip which will be transitioned to NovoLog scale. Laboratory studies reveal WBC 9.6, hemoglobin 11.1, platelet count 153. Sodium 135 otherwise electrolytes are normal. BUN 21 and creatinine 0.64. Blood sugar 114. Capillary blood glucose running between 108 and 127. Calcium 8.3. Magnesium 2.1. Liver function tests normal. Chest x-ray reveals no pneumo, postop changes. Patient has been afebrile, heart rate in the 80s, blood pressure 117/42, pulse ox 96% on room air. 11/16: Patient remains in the intensive care unit. Patient had an uneventful night. He did ambulate with staff assistance yesterday and this morning. He denies any lightheadedness or dizziness. One chest tube, cordis and mejias have been discontinued. He has been able to void on his own. Patient has not had a bowel movement yet. He is aware that stool softener is available. Chest discomfort is controlled, no shortness of breath, no cough or sputum production. He remains afebrile, heart rate in the 80s and 90s, blood pressure 129/63, pulse ox 95% on room air. 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 Patient is reaching 1000 on incentive spirometry and performing every hour. Repeat blood work reveals WBC 11.9, hemoglobin 10.7, platelet count 175. Sodium 133, potassium 4.5, chloride 106, CO2 24, BUN 23 creatinine 0.78. Capillary blood glucose running 150s. Total bilirubin 1.4. Other liver function tests normal. Chest x-ray reveals stable findings. Patient is scheduled for transfer to the cardiac stepdown unit today. Social work has arranged for [facility]. REVIEW OF SYSTEMS Constitutional: No fever, no chills, no night sweats. No weight change. No weakness, generalized fatigue no lethargy. No daytime sleepiness. EENT: No headache. No blurred vision or double vision, no loss of vision. No loss of Hearing, no ringing in the ears, no dizziness. No nasal drainage or congestion. No epistaxis. No sore throat. Lungs: No shortness of breath, cough, no sputum production. No wheezing. Cardiovascular: Reports mild chest discomfort, no lower extremity edema. No palpitations. No paroxysmal nocturnal dyspnea. No orthopnea. No lightheadedn ess or dizziness. No syncopal episodes. Abdominal: No abdominal pain. No nausea, vomiting. No diarrhea. No constipation. No bloody or tarry stools. Reported loss of appetite. Genitourinary: No dysuria, increased frequency, urgency. No urinary retention. Musculoskeletal: No myalgias. No muscle weakness, no gait dysfunction, no frequent falls. No back pain. No neck pain. Integumentary: No wounds, no lesions. No rash or pruritus. No unusual bruising. No change in hair or nails. Neurologic: No aphasia. No facial droop. No change in mentation. No head injury. No headache. No paralysis. No paresthesia. Psychiatric: No depression. No anxiety. No mood swings. Endocrine: No abnormal blood sugars. No weight change. No excessive sweating or thirst. No cold intolerance. PHYSICAL EXAMINATION Gen: This is a 66-year-old male. His resting in ICU and appears to be comfortable and in no acute distress. HEENT: Head is atraumatic, normocephalic. Pupils equal, round. Sclerae is anicteric. Right sided IJ Lusk-Nita catheter in place. NECK: Supple. No JVD. No lymphadenopathy. No thyromegaly. LUNGS: Clear to auscultation. No wheezes or rhonchi. No intercostal retractions. Chest tube with serosanguineous drainage. Sternal dressing is dry and intact. Heart hugger in place. HEART: First heart sound is depressed, secondary sound is normal, no S3, no S4. ABDOMEN: Soft. Bowel sounds are present. No masses. No tenderness. EXTREMITIES: No pedal edema. No calf tenderness. Dorsalis pedis +2 bilaterally. NEUROLOGICAL: Patient is awake, alert and oriented x3. Cranial nerves 2 through 12 are grossly intact. ASSESSMENT AND PLAN 1. Coronary artery disease status post status post off-pump coronary artery bypass grafting 4 with SCHREIBER to LAD, left radial artery to obtuse marginal, SVG to first diagonal, SVG to EEA with ligation of the left atrial appendage and endovascular vein harvest of the left greater saphenous vein, endovascular harvest of the left radial artery, 01/15. Continue current plan per cardiothoracic team. Patient is currently on aspirin 325 mg daily, atorvastatin 80 mg at bedtime, Plavix 75 mg daily, Cardizem 30 mg oral every 6 hours, metoprolol tartrate 12.5 mg twice daily. 2. Hypertension. Triamterene/hydrochlorothiazide and Amlodipine on hold. Patient's been started on Cardizem 30 mg every 6 hours. 3. Hyperlipidemia. Continue patient on atorvastatin 80 mg at bedtime 4. Obstructive sleep apnea. Patient to continue CPAP when sleeping. 5. Hyperglycemia prophylaxis. Insulin drip has been transitioned to NovoLog scale before meals and at bedtime. No history of diabetes. 6. GI prophylaxis. Protonix 40 mg daily. 7. DVT prophylaxis. Heparin subcu. DISCHARGE PLAN Home with [facility]. Impression and plan of care have been directed as dictated by the signing physician. Abigail Millan nurse practitioner acting as scribe for signing neil mathew. Objective - Vital Signs Vital signs: Vital Signs Temp 98.2 F 01/17/22 08:00 Pulse 96 01/17/22 10:00 Resp 30 H 01/17/22 10:00 BP 129/63 01/17/22 10:00 Pulse Ox 95 01/17/22 10:27 FiO2 40 01/15/22 21:49 Intake & Output 01/16/22 01/17/22 01/17/22 18:59 06:59 18:59 Intake Total 1744.023 672 312 Output Total 725 935 25 Balance 1019.023 -263 287 Weight 100.9 kg 102.2 kg Intake: IV 740 672 112 Lactated Ringers 1,000 ml 600 600 100 @ 20 mls/hr IV .Q24H DYANA Rx#:[id number] NS Cardiac Calcs 50 NS Pressure Bag 90 72 12 Intake, IV Titration 14.023 Amount Insulin Regular 100 unit 14.023 In Sodium Chloride 0.9% 100 ml @ Per Protocol IV .Q0M DYANA Rx#:[id number] Oral 990 200 Output: Chest Tube Drainage 325 295 MS and LP 325 295 Urine 400 640 25 Uretheral (Mejias) 250 Other: Voiding Method Indwelling Catheter Indwelling Catheter Indwelling Catheter ABP, PAP, CO, CI - Last Documented Arterial Blood Pressure 96/58 Pulmonary Artery Pressure 19/11 Cardiac Output 7 Cardiac Index 3.1 - Labs CBC & Chem 7: 01/17/22 05:00 01/17/22 05:00 Labs: Abnormal Lab Results - Last 24 Hours (Table) 01/16/22 01/16/22 01/16/22 Range/Units 11:55 16:45 21:39 WBC (3.8-10.6) k/uL RBC (4.30-5.90) m/uL Hgb (13.0-17.5) gm/dL Hct (39.0-53.0) % Neutrophils # (1.3-7.7) k/uL Lymphocytes # (1.0-4.8) k/uL Sodium (137-145) mmol/L BUN (9-20) mg/dL Glucose (74-99) mg/dL POC Glucose (mg/dL) 130 H 150 H 156 H (70-110) mg/dL Total Bilirubin (0.2-1.3) mg/dL Total Protein (6.3-8.2) g/dL Albumin (3.5-5.0) g/dL 01/17/22 01/17/22 01/17/22 Range/Units 05:00 05:00 06:57 WBC 11.9 H (3.8-10.6) k/uL RBC 3.52 L (4.30-5.90) m/uL Hgb 10.7 L (13.0-17.5) gm/dL Hct 30.3 L (39.0-53.0) % Neutrophils # 10.2 H (1.3-7.7) k/uL Lymphocytes # 0.7 L (1.0-4.8) k/uL Sodium 133 L (137-145) mmol/L BUN 23 H (9-20) mg/dL Glucose 145 H (74-99) mg/dL POC Glucose (mg/dL) 152 H (70-110) mg/dL Total Bilirubin 1.4 H (0.2-1.3) mg/dL Total Protein 5.3 L (6.3-8.2) g/dL Albumin 3.4 L (3.5-5.0) g/dL
--- NOTE | 2022-01-17 14:43 | PN ---
PROGRESS NOTE SUBJECTIVE: Mr. Sierra is status post bypass surgery, doing remarkably well. No chest pain or shortness of breath. Good recovery, in sinus rhythm. OBJECTIVE: VITAL SIGNS: Stable. NECK: No JVD. HEART: S1 and S2 heard normally. Short systolic murmur. LUNGS: Reveal improved air entry. ABDOMEN: Unchanged. LOWER EXTREMITIES: Unchanged. Prognosis is good, and he is doing the good progress. MMODL / IJN: [id number] /
[2022-01-17 16:35] LABS: Glucose,Whole Blood 136 mg/dL (70-110)
[2022-01-17] MEDS: SENNOSIDES-DOCUSATE SODIUM 1 EACH TAB PO SCH (21:01)
[2022-01-17] MEDS: ATORVASTATIN 80 MG TAB PO SCH (21:02)
[2022-01-17 21:06] LABS: Glucose,Whole Blood 150 mg/dL (70-110)
[2022-01-17] MEDS ORDERED: DEXTROSE 5% IN WATER 100 ML with AMIODARONE 150 MG IV ONE (23:45)
[2022-01-18] MEDS: AMIODARONE 360 MG in DEXTROSE 5% IN WATER 200 ML IV PRN ×4 (00:04→06:35)
[2022-01-18 06:07] LABS: Glucose,Whole Blood 145 mg/dL (70-110)
[2022-01-18] MEDS: INSULIN ASPART (NovoLOG) 100 UNIT/ML VIAL SQ SCH ×4 (06:32→20:22)
[2022-01-18] MEDS: PANTOPRAZOLE 40 MG TABLET PO SCH (06:33)
--- NOTE | 2022-01-18 07:26 | XR ---
EXAMINATION TYPE: XR chest 1V portable DATE OF EXAM: 01/18/2022 Comparison: 01/17/2022 Clinical History: 66-year-old male post cardiac surgery Findings: Interval removal of the previous right IJ sheath. Left sided chest tube remains in place. No apprecia ble pneumothorax. Mediastinal drain has been removed. Median sternotomy wires and post-CABG clips not ed. Ongoing patchy retrocardiac and left basilar opacity. Impression: Left-sided chest tube in place. No appreciable pneumothorax. Ongoing retrocardiac and left basilar pa tchy atelectasis.
--- NOTE | 2022-01-18 07:50 | P.PN ---
Subjective Progress Note Date: 01/18/22 Principal diagnosis: Coronary artery disease. Previous medical history of hypertension, hyperlipidemia, arthritis, previous tobacco dependence, obstructive sleep apnea with home CPAP use, remote history of pneumonia, and family history of premature coronary artery disease with father diagnosed before the age of 60 POD #3 off-pump coronary artery bypass grafting 4 with left internal mammary artery to the left anterior descending artery, left radial artery to the obtuse marginal artery, reverse saphenous vein graft to the first diagonal artery, reverse saphenous vein graft to the posterior descending coronary artery, ligation of the left atrial appendage with a 35 mm AtriCure clip, endovascular vein harvest of the left greater saphenous vein and left radial artery. In traoperative transesophageal echocardiogram performed by anesthesia Postoperative acute blood loss anemia, expected given hemodilution Atrial fibrillation, known common occurrence after open heart surgery, not a complication The patient was seen and examined this morning sitting up in a recliner on the cardiac stepdown unit in no acute distress. Patient went into atrial fibrillation last night and was started on amiodarone protocol, currently in controlled atrial fibrillation, hemodynamically stable. States pain is controlled on current medication regimen, denies shortness of breath. Currently on room air and achieving 1000 mL on his incentive spirometry. Left pleural chest tube remain. Patient has ambulated in [place] without difficulty. No other new concerns. Objective - Vital Signs Vital signs: Vital Signs Temp 98.8 F 01/18/22 04:00 Pulse 88 01/18/22 04:00 Resp 18 01/18/22 04:00 BP 99/67 01/18/22 04:00 Pulse Ox 93 L 01/18/22 04:00 FiO2 40 01/15/22 21:49 Intake & Output 01/17/22 01/18/22 01/18/22 18:59 06:59 18:59 Intake Total 552 207.2 Output Total 575 325 Balance -23 -117.8 Weight 102.3 kg Intake: IV 112 Lactated Ringers 1,000 ml 100 @ 20 mls/hr IV .Q24H DYANA Rx#:[id number] NS Pressure Bag 12 Intake, IV Titration 207.2 Amount Amiodarone 360 mg In 207.2 Dextrose 5% in Water 200 ml @ 1 MG/MIN 34.533 mls/ hr IV .Q6H PRN Rx#: [id number] Oral 440 Output: Chest Tube Drainage 50 MS and LP 50 Urine 575 275 Other: Voiding Method Indwelling Catheter Urinal # Voids 1 ABP, PAP, CO, CI - Last Documented Arterial Blood Pressure 96/58 Pulmonary Artery Pressure 19/11 Cardiac Output 7 Cardiac Index 3.1 - Exam CONSTITUTIONAL: Appears comfortable, cooperative, no acute distress RESPIRATORY: Lungs sounds diminished bilaterally. Respirations even, nonlab ored. Currently on room air with oxygen saturation 93%. Able to achieve 1000 mL on incentive spirometry. Strong cough. CARDIOVASCULAR: S1, S2 present. Irregular rate and rhythm, controlled atrial fibrillation on telemetry. Sternum stable. Palpable peripheral pulses bilaterally. No edema present. No calf pain or tenderness noted. Heart hugger in place with patient demonstrating appropriate use. Antiembolism stockings, SCDs present. GASTROINTESTINAL: Abdomen soft, nontender, nondistended. Active bowel sounds present 4 quadrants. Tolerating diet. Positive flatus GENITOURINARY: Lim discontinued yesterday, patient continues to void INTEGUMENTARY: Skin is warm and dry with evidence of good perfusion. Anterior chest incision well approximated and covered with dry intact dressing. Left lower extremity EVH site well approximated without redness or drainage. NEUROLOGIC: Cranial nerves II through XII intact MUSKULOSKELETAL: Able to move all extremities, strength equal bilaterally, gait normal PSYCHIATRIC: Alert and oriented to person place and time, appropriate affect, intact judgment and insight INVASIVE LINES AND TUBES: Left pleural chest tubes present and connected to wall suction, no air leaks present, 50 mL serosanguineous drainage overnight, 250 mL in the last 24 hours. - Allied health notes Allied health notes reviewed: nursing - Labs CBC & Chem 7: 01/17/22 05:00 01/17/22 05:00 Labs: Abnormal Lab Results - Last 24 Hours (Table) 01/17/22 01/17/22 01/17/22 Range/Units 11:34 16:33 20:54 POC Glucose (mg/dL) 161 H 136 H 150 H (70-110) mg/dL 01/18/22 Range/Units 06:06 POC Glucose (mg/dL) 145 H (70-110) mg/dL - Imaging and Cardiology Chest x-ray: report reviewed, image reviewed Assessment and Plan Assessment: 1. Coronary artery disease, status post four-vessel off-pump CABG 2. History of hypertension 3. Hyperlipidemia, treated, cholesterol 102, LDL 41 4. Arthritis 5. Previous tobacco dependence, preoperative FEV1 93% of predicted 6. Obstructive sleep apnea with home CPAP use 7. Remote history of pneumonia 8. Family history of premature coronary artery disease with father diagnosed before the age of 60 9. Postoperative acute blood loss anemia, expected given hemodilution 10. Atrial fibrillation, status post left atrial appendage ligation Plan: 1. Continue aspirin, statin, Plavix, beta luis therapy. Will increase beta luis therapy as tolerated 2. Continue calcium channel luis for radial artery spasm prophylaxis, transition to long-acting 3. Continue amiodarone per protocol, will transition to oral. No need for anticoagulation unless in atrial fibrillation greater than 24 hours 4. Encourage incentive spirometry is 10 times every hour while awake. Bronchodilators, CPAP management per pulmonology 5. Increase activity, ambulate as tolerated. PT/OT/cardiac rehab following 6. Will monitor daily labs and x-rays. Electrolyte replacement per protocol. 7. GI/DVT prophylaxis 8. Insulin management per primary care service. Patient is not diabetic, hemoglobin A1c 5.8% 9. Pain control with current medication regimen 10. Will discontinue left pleural chest tube 11. Strict accurate intake and output. Daily weights 12. Discharge planning in progress. Anticipate discharge to home with home care in the next 24-48 hours 13. More recommendations to follow
[2022-01-18] MEDS: AMIODARONE 450 MG in DEXTROSE 5% IN WATER 250 ML IV PRN ×4 (07:52→20:26)
[2022-01-18 08:12] LABS: HCT 28.3 % (39.0-53.0); MCHC 35.5 g/dL (31.0-37.0); MCV 87.5 fL (80.0-100.0); Mean Platelet Volume 9.4; Platelet Count 163 k/uL (150-450); RBC 3.23 m/uL (4.30-5.90); RDW 12.5 % (11.5-15.5); WBC 11.5 k/uL (3.8-10.6)
[2022-01-18 08:31] LABS: African American GFR (CKD) >90 (>60 ml/min/1.73 sqM); Anion Gap 8 mmol/L; Blood Urea Nitrogen 29 mg/dL (9-20); Calcium 8.4 mg/dL (8.4-10.2); Carbon Dioxide 22 mmol/L (22-30); Chloride 101 mmol/L (98-107); Glucose 129 mg/dL (74-99); Non-African American GFR(CKD) 84 (>60 ml/min/1.73 sqM); Potassium 4.3 mmol/L (3.5-5.1); Sodium 131 mmol/L (137-145)
[2022-01-18] MEDS: IPRATROPIUM-ALBUTEROL 3 ML NEB INHALATION SCH ×4 (08:43→21:05)
[2022-01-18] MEDS ORDERED: FUROSEMIDE 10 MG/ML 2 ML VIAL IV ONE (08:44)
--- NOTE | 2022-01-18 09:22 | P.PN ---
Subjective Progress Note Date: 01/18/22 HISTORY OF PRESENT ILLNESS This is a 66-year-old male patient with past history of hypertension, hyperlipidemia, obstructive sleep apnea with CPAP. Patient was establish as new patient in September of this year. He was having exertional dyspnea and a CT heart with calcium score was ordered. He came back elevated and patient was referred to Dr. Gilbert. Stress test which was positive and cardiac catheterization revealed three-vessel coronary artery disease with 90% or more stenosis of the left anterior descending coronary artery after takeoff of the first diagonal. The first diagonal was 80-90% stenosis. Left main normal. Circumflex coronary artery lesion to second obtuse marginal branches, the first of which was completely occluded and fills via collateral. The second was 80-85% stenosed. Right coronary artery was 80% stenosis and leads to PDA and DORINA. Patient was then referred to cardiothoracic surgeon to be evaluated for coronary artery bypass grafting. Echocardiogram performed 01/18 revealed EF of 50-55%, mild concentric left hypertrophy, mild mitral regurgitation, mild tricuspid regurgitation. Patient has been brought into [facility] on 01/[address] Watt. He is status post off-pump coronary artery bypass grafting 4 with SCHREIBER to LAD, left radial artery to obtuse marginal, SVG to first diagonal, SVG to EEA with ligation of the left atrial appendage and endovascular vein harvest of the left greater saphenous vein, endovascular harvest of the left radial artery. Patient was successfully extubated last night and utilize CPAP through the night. He has been hemodynamically stable. Patient is found sitting in a chair. He states his pain is controlled. He denies shortness of breath. He states he has stood only above plan is for ambulation later today. He is on a clear liquid diet and tolerating. Patient is on insulin drip which will be transitioned to NovoLog scale. Laboratory studies reveal WBC 9.6, hemoglobin 11.1, platelet count 153. Sodium 135 otherwise electrolytes are normal. BUN 21 and creatinine 0.64. Blood sugar 114. Capillary blood glucose running between 108 and 127. Calcium 8.3. Magnesium 2.1. Liver function tests normal. Chest x-ray reveals no pneumo, postop changes. Patient has been afebrile, heart rate in the 80s, blood pressure 117/42, pulse ox 96% on room air. 01/17: Patient remains in the intensive care unit. Patient had an uneventful night. He did ambulate with staff assistance yesterday and this morning. He denies any lightheadedness or dizziness. One chest tube, cordis and mejias have been discontinued. He has been able to void on his own. Patient has not had a bowel movement yet. He is aware that stool softener is available. Chest discomfort is controlled, no shortness of breath, no cough or sputum production. He remains afebrile, heart rate in the 80s and 90s, blood pressure 129/63, pulse ox 95% on room air. probate clerk has been a sinus rhythm. Patient is reaching 1000 on incentive spirometry and performing every hour. Repeat blood work reveals WBC 11.9, hemoglobin 10.7, platelet count 175. Sodium 133, potassium 4.5, chloride 106, CO2 24, BUN 23 creatinine 0.78. Capillary blood glucose running 150s. Total bilirubin 1.4. Other liver function tests normal. Chest x-ray reveals stable findings. Patient is scheduled for transfer to the cardiac stepdown unit today. Social work has arranged for [facility]. 01/18: Patient has been transferred to the cardiac stepdown unit. He went into A. fib with RVR approximately midnight and started on amiodarone. Patient is in atrial fibrillation with a controlled rate at this time. He received 1 dose of IV Lasix 20 mg this morning. Plan is to remove his last chest tube today. He denies any significant chest pain, no shortness of breath, no lightheadedness or dizziness. Patient has plans to ambulate this morning. He is urinating without difficulty. Patient is eating adequately. He has not had a bowel movement but feels one is close. Patient is on Senokot at bedtime. Patient remains afebrile, heart rate in the 80s, blood pressure 99/67, pulse ox 93% on room air. He is reaching 1000 on incentive spirometry and utilizing on a regular basis. I set Repeat blood work reveals WBC 11.5, hemoglobin 10, platelet count 163. Sodium 131, potassium 4.3, chloride 101, CO2 22, BUN 29 creatinine 0.95. Capillary blood glucose running between 136-150. Repeat chest x-ray reveals left-sided chest tube in place. No pneumothorax. Ongoing retrocardiac and left basilar patchy atelectasis. REVIEW OF SYSTEMS Constitutional: No fever, no chills, no night sweats. No weight change. No weakness, generalized fatigue no lethargy. No daytime sleepiness. EENT: No headache. No blurred vision or double vision, no loss of vision. No loss of Hearing, no ringing in the ears, no dizziness. No nasal drainage or congestion. No epistaxis. No sore throat. Lungs: No shortness of breath, cough, no sputum production. No wheezing. Cardiovascular: Reports mild chest discomfort, no lower extremity edema. No palpitations. No paroxysmal nocturnal dyspnea. No orthopnea. No lightheadedness or dizziness. No syncopal episodes. Abdominal: No abdominal pain. No nausea, vomiting. No diarrhea. No constipation. No bloody or tarry stools. Denies loss of appetite. Genitourinary: No dysuria, increased frequency, urgency. No urinary retention. Musculoskeletal: No myalgias. No muscle weakness, no gait dysfunction, no frequent falls. No back pain. No neck pain. Integumentary: No wounds, no lesions. No rash or pruritus. No unusual bruising. Neurologic: No aphasia. No facial droop. No change in mentation. No head injury. No headache. No paralysis. No paresthesia. Psychiatric: No depression. No anxiety. No mood swings. Endocrine: No abnormal blood sugars. No weight change. No excessive sweating or thirst. No cold intolerance. PHYSICAL EXAMINATION Gen: This is a 66-year-old male. His resting in recliner and in no acute distress. HEENT: Head is atraumatic, normocephalic. Pupils equal, round. Sclerae is anicteric. NECK: Supple. No JVD. No lymphadenopathy. No thyromegaly. LUNGS: Clear to auscultation. No wheezes or rhonchi. No intercostal retractions. Chest tube with serosanguineous drainage. Sternal dressing is dry and intact. Heart hugger in place. HEART: First heart sound is depressed, secondary sound is normal, no S3, no S4. ABDOMEN: Soft. Bowel sounds are present. No masses. No tenderness. EXTREMITIES: No pedal edema. No calf tenderness. Dorsalis pedis +2 bilaterally. NEUROLOGICAL: Patient is awake, alert and oriented x3. Cranial nerves 2 through 12 are grossly intact. ASSESSMENT AND PLAN 1. Coronary artery disease status post status post off-pump coronary artery bypass grafting 4 with SCHREIBER to LAD, left radial artery to obtuse marginal, SVG to first diagonal, SVG to EEA with ligation of the left atrial appendage and endovascular vein harvest of the left greater saphenous vein, endovascular harvest of the left radial artery, 01/15. Continue current plan per cardiothoracic team. Patient is currently on aspirin 325 mg daily, atorvastatin 80 mg at bedtime, Plavix 75 mg daily, Cardizem 120 mg oral daily, metoprolol tar trate increased to 25 mg every 8 hours. 2. Hypertension. Triamterene/hydrochlorothiazide and Amlodipine on hold. Patient's been started on Cardizem 120 mg daily every 6 hours. 3. Hyperlipidemia. Continue patient on atorvastatin 80 mg at bedtime 4. Obstructive sleep apnea. Patient to continue CPAP when sleeping. 5. Hyperglycemia prophylaxis. Insulin drip has been transitioned to NovoLog scale before meals and at bedtime. No history of diabetes. 6. A. fib with RVR, paroxysmal atrial fibrillation. Patient was started on amiodarone drip. 7. GI prophylaxis. Protonix 40 mg daily. 8. DVT prophylaxis. Heparin subcu. DISCHARGE PLAN Home with [facility]. Impression and plan of care have been directed as dictated by the signing physician. Abigail Millan nurse practitioner acting as scribe for signing physician. Objective - Vital Signs Vital signs: Vital Signs Temp 98.8 F 01/18/22 04:00 Pulse 88 01/18/22 08:54 Resp 18 01/18/22 04:00 BP 99/67 01/18/22 04:00 Pulse Ox 96 01/18/22 08:43 FiO2 40 01/15/22 21:49 Intake & Output 01/17/22 01/18/22 01/18/22 18:59 06:59 18:59 Intake Total 552 207.2 Output Total 575 325 Balance -23 -117.8 Weight 102.3 kg Intake: IV 112 Lactated Ringers 1,000 ml 100 @ 20 mls/hr IV .Q24H DYANA Rx#:[id number] NS Pressure Bag 12 Intake, IV Titration 207.2 Amount Amiodarone 360 mg In 207.2 Dextrose 5% in Water 200 ml @ 1 MG/MIN 34.533 mls/ hr IV .Q6H PRN Rx#: [id number] Oral 440 Output: Chest Tube Drainage 50 MS and LP 50 Urine 575 275 Other: Voiding Method Indwelling Catheter Urinal # Voids 1 ABP, PAP, CO, CI - Last Documented Arterial Blood Pressure 96/58 Pulmonary Artery Pressure 19/11 Cardiac Output 7 Cardiac Index 3.1 - Labs CBC & Chem 7: 01/18/22 06:55 01/18/22 06:55 Labs: Abnormal Lab Results - Last 24 Hours (Table) 01/17/22 01/17/22 01/17/22 Range/Units 11:34 16:33 20:54 WBC (3.8-10.6) k/uL RBC (4.30-5.90) m/uL Hgb (13.0-17.5) gm/dL Hct (39.0-53.0) % Sodium (137-145) mmol/L BUN (9-20) mg/dL Glucose (74-99) mg/dL POC Glucose (mg/dL) 161 H 136 H 150 H (70-110) mg/dL 01/18/22 01/18/22 01/18/22 Range/Units 06:06 06:55 06:55 WBC 11.5 H (3.8-10.6) k/uL RBC 3.23 L (4.30-5.90) m/uL Hgb 10.0 L (13.0-17.5) gm/dL Hct 28.3 L (39.0-53.0) % Sodium 131 L (137-145) mmol/L BUN 29 H (9-20) mg/dL Glucose 129 H (74-99) mg/dL POC Glucose (mg/dL) 145 H (70-110) mg/dL
[2022-01-18] MEDS: ASPIRIN 325 MG TAB PO SCH (09:27)
[2022-01-18] MEDS: HEPARIN SODIUM,PORCINE/PF 5,000 UNIT/0.5 ML SYRINGE SQ SCH ×3 (09:27→23:01)
[2022-01-18] MEDS: DILTIAZEM CD 120 MG CAP.ER.24H PO SCH (09:27)
[2022-01-18] MEDS: CLOPIDOGREL 75 MG TAB PO SCH (09:27)
[2022-01-18] MEDS: METOPROLOL TARTRATE 25 MG TAB PO SCH ×3 (09:27→23:01)
[2022-01-18] MEDS: DILTIAZEM ORAL 30 MG TAB PO SCH (11:40)
[2022-01-18 11:46] LABS: Glucose,Whole Blood 124 mg/dL (70-110)
--- NOTE | 2022-01-18 11:48 | P.PN ---
Subjective Progress Note Date: 01/18/22 Principal diagnosis: Status post CABG. Progress Note Date: 01/17/22 This is a pleasant 66-year-old male patient with a known history of chronic tobacco dependence, chronic obstructive sleep apnea on home CPAP, hypertension, hyperlipidemia, arthritis. He was found to havesignificant coronary artery disease and presented here yesterday for an elective bypass surgery. He had undergone an off-pump coronary artery bypass grafting 4 with a SCHREIBER to the LAD, left radial artery to the obtuse marginal, SVG to the first diagonal, SVG to the PDA. He also had left atrial clip placed. He was extubated in less than 6 hours. He is currently seen in the intensive care unit. Sitting up in the chair at the bedside. Currently maintaining good O2 saturations in the 90s on room air. He is on a Cardizem drip at 5 mg per hour. Nitroglycerin drip has been weaned off. He is on a insulin drip at 1.5 units per hour. Lactated Ringer's at 50 MLS per hour. chest x-ray reveals interval removal endotracheal and an nasogastric tube. Mediastinal and left pleural chest tubes remain in place. Right IJ [place] catheter in place. No evidence of pneumothorax. There is some left basilar atelectasis. white count 9.6. Hemoglobin 11.1. Sodium 135. Potassium 3.8. Bicarb 24. BUN 21. Creatinine 0.64. Glucose 120. Albumin 3.6. cardiac output 7. Cardiac index 3.1. PA pressures 19/7. He is continued on bronchodilators. Received albumin. Heparin for DVT prophylaxis. The patient is seen today 01/17/2022 in follow-up in the intensive care unit. He is currently sitting up in a chair at the bedside. Awake and alert in no acute distress. He is maintaining good O2 saturations in the 90s on room air. No IV fluids currently. Rest x-ray reveals left thoracotomy to present without evidence of pneumothorax. Chest tubes within the mediastinum. Post [place] removal. Cordis is present. White count 11.9. Hemoglobin 10.7. Sodium 133. Potassium 4.5. BUN 23. Creatinine 0.78. Glucose 145. Albumin 3.4. He is continued on DuoNeb inhalations. Continues to work well with the incentive spirometer. Heparin for DVT prophylaxis. Progress note dated 01/18/2022. 66-year-old male, postop day #3, status post bypass grafting. The patient is d oing very well. He is currently on room air. The patient is currently on amiodarone 0.5 mg/m. He is resting comfortably in his room. Labs today include a white count 11.5, hemoglobin 10, hematocrit 28.3, and platelet count 163,000. Sodium 131, potassium 4.3, chlorides 101, CO2 22, BUN 29, creatinine 0.95. Chest x-ray show some bibasilar patchy atelectasis, and a left-sided chest tube. Objective - Vital Signs Vital signs: Vital Signs Temp 98.8 F 01/18/22 04:00 Pulse 88 01/18/22 08:54 Resp 18 01/18/22 04:00 BP 99/67 01/18/22 04:00 Pulse Ox 96 01/18/22 08:43 FiO2 40 01/15/22 21:49 Intake & Output 01/17/22 01/18/22 01/18/22 18:59 06:59 18:59 Intake Total 552 207.2 Output Total 575 325 Balance -23 -117.8 Weight 102.3 kg Intake: IV 112 Lactated Ringers 1,000 ml 100 @ 20 mls/hr IV .Q24H DYANA Rx#:[id number] NS Pressure Bag 12 Intake, IV Titration 207.2 Amount Amiodarone 360 mg In 207.2 Dextrose 5% in Water 200 ml @ 1 MG/MIN 34.533 mls/ hr IV .Q6H PRN Rx#: [id number] Oral 440 Output: Chest Tube Drainage 50 MS and LP 50 Urine 575 275 Other: Voiding Method Indwelling Catheter Urinal # Voids 1 ABP, PAP, CO, CI - Last Documented Arterial Blood Pressure 96/58 Pulmonary Artery Pressure 19/11 Cardiac Output 7 Cardiac Index 3.1 - Exam No acute distress, oriented 3. Currently on room air. HEENT examination is grossly unremarkable. Neck supple. Full range of motion. No adenopathy thyromegaly or neck vein distention. Cardiovascular examination reveals regular rhythm rate. S1-S2 normal. No S3 or S4. No discernible murmur noted. Heart rate 88 bpm. Lungs reveal clear breath sounds. Breath sounds are equal bilaterally. No adventitious lung sounds including wheezes rhonchi or crackles. Room air saturation 96%. Abdomen soft bowel sounds are heard. No masses or tenderness. Extremities are intact. No cyanosis clubbing or edema. Skin is without rash or lesion. Neurologic examination is brief but nonfocal. - Labs CBC & Chem 7: 01/18/22 06:55 01/18/22 06:55 Labs: Abnormal Lab Results - Last 24 Hours (Table) 01/17/22 01/17/22 01/18/22 Range/Units 16:33 20:54 06:06 WBC (3.8-10.6) k/uL RBC (4.30-5.90) m/uL Hgb (13.0-17.5) gm/dL Hct (39.0-53.0) % Sodium (137-145) mmol/L BUN (9-20) mg/dL Glucose (74-99) mg/dL POC Glucose (mg/dL) 136 H 150 H 145 H (70-110) mg/dL 01/18/22 01/18/22 Range/Units 06:55 06:55 WBC 11.5 H (3.8-10.6) k/uL RBC 3.23 L (4.30-5.90) m/uL Hgb 10.0 L (13.0-17.5) gm/dL Hct 28.3 L (39.0-53.0) % Sodium 131 L (137-145) mmol/L BUN 29 H (9-20) mg/dL Glucose 129 H (74-99) mg/dL POC Glucose (mg/dL) (70-110) mg/dL Assessment and Plan Assessment: Postop day #3, status post four-vessel bypass grafting. Routine postoperative ventilator management. Atrial fibrillation, with RVR, now on amiodarone. Previous chronic tobacco dependence, with only mild COPD. History of hyperlipidemia. History of hypertension. Sleep apnea syndrome, currently on CPAP. Plan: Plan dated 01/18/2022. Overall, the patient's doing very well. The patient is resting comfortably and is currently not on any supplemental oxygen. He did develop atrial fibrillation with RVR, and is currently on amiodarone IV. Labs, x-rays, and medications are reviewed. He's postop day #3. He had a four-vessel bypass grafting. We will continue to follow make recommendations along the way. Prognosis is guarded. Time with Patient: Less than 30
--- NOTE | 2022-01-18 12:20 | P.PN ---
Subjective Progress Note Date: 01/18/22 HISTORY OF PRESENT ILLNESS: Patient is s/p CABG x 4. Postop day #3. Patient examined this morning. He is sitting up in the chair. He denies shortness of breath. He denies chest pain or pressure. This morning the patient was in atrial fibrillation. However at the time of examination he is in sinus mechanism with a heart rate in the 60s. Vital signs are stable. PHYSICAL EXAM: VITAL SIGNS: Reviewed. GENERAL: Well-developed in no acute distress. NECK: Supple. No JVD or thyromegaly LUNGS: Respirations even and unlabored. Lungs essentially clear to auscultation bilaterally. HEART: Regular rate and rhythm. S1 and S2 heard. EXTREMITIES: Normal range of motion. No clubbing or cyanosis. Peripheral pulses intact. No lower extremity edema ASSESSMENT: Coronary artery disease, status post four-vessel CABG Paroxysmal atrial fibrillation, currently maintaining sinus mechanism Hyperlipidemia Obstructive sleep apnea Former nicotine dependence PLAN: Continue postoperative management per cardiothoracic surgery Continue current cardiac medications Encourage use of incentive spirometer Increase activity as tolerated Further recommendations pending patient course Nurse practitioner note has been reviewed by physician. Signing provider agrees with the documented findings, assessment, and plan of care. Objective - Vital Signs Vital signs: Vital Signs Temp 98.8 F 01/18/22 04:00 Pulse 88 01/18/22 08:54 Resp 18 01/18/22 04:00 BP 99/67 01/18/22 04:00 Pulse Ox 96 01/18/22 08:43 FiO2 40 01/15/22 21:49 Intake & Output 01/17/22 01/18/22 01/18/22 18:59 06:59 18:59 Intake Total 552 207.2 Output Total 575 325 Balance -23 -117.8 Weight 102.3 kg Intake: IV 112 Lactated Ringers 1,000 ml 100 @ 20 mls/hr IV .Q24H DYANA Rx#:[id number] NS Pressure Bag 12 Intake, IV Titration 207.2 Amount Amiodarone 360 mg In 207.2 Dextrose 5% in Water 200 ml @ 1 MG/MIN 34.533 mls/ hr IV .Q6H PRN Rx#: [id number] Oral 440 Output: Chest Tube Drainage 50 MS and LP 50 Urine 575 275 Other: Voiding Method Indwelling Catheter Urinal # Voids 1 ABP, PAP, CO, CI - Last Documented Arterial Blood Pressure 96/58 Pulmonary Artery Pressure 19/11 Cardiac Output 7 Cardiac Index 3.1 - Labs CBC & Chem 7: 01/18/22 06:55 01/18/22 06:55 Labs: Abnormal Lab Results - Last 24 Hours (Table) 01/17/22 01/17/22 01/18/22 Range/Units 16:33 20:54 06:06 WBC (3.8-10.6) k/uL RBC (4.30-5.90) m/uL Hgb (13.0-17.5) gm/dL Hct (39.0-53.0) % Sodium (137-145) mmol/L BUN (9-20) mg/dL Glucose (74-99) mg/dL POC Glucose (mg/dL) 136 H 150 H 145 H (70-110) mg/dL 01/18/22 01/18/22 01/18/22 Range/Units 06:55 06:55 11:37 WBC 11.5 H (3.8-10.6) k/uL RBC 3.23 L (4.30-5.90) m/uL Hgb 10.0 L (13.0-17.5) gm/dL Hct 28.3 L (39.0-53.0) % Sodium 131 L (137-145) mmol/L BUN 29 H (9-20) mg/dL Glucose 129 H (74-99) mg/dL POC Glucose (mg/dL) 124 H (70-110) mg/dL
[2022-01-18 16:39] LABS: Glucose,Whole Blood 122 mg/dL (70-110)
[2022-01-18 19:49] LABS: Glucose,Whole Blood 163 mg/dL (70-110)
[2022-01-18] MEDS: AMIODARONE 200 MG TAB PO SCH (20:21)
[2022-01-18] MEDS: ATORVASTATIN 80 MG TAB PO SCH (20:21)
[2022-01-18] MEDS: SENNOSIDES-DOCUSATE SODIUM 1 EACH TAB PO SCH (20:21)
[2022-01-19 06:06] LABS: Glucose,Whole Blood 122 mg/dL (70-110)
[2022-01-19] MEDS: PANTOPRAZOLE 40 MG TABLET PO SCH (06:19)
[2022-01-19] MEDS: INSULIN ASPART (NovoLOG) 100 UNIT/ML VIAL SQ SCH ×2 (06:19→12:03)
--- NOTE | 2022-01-19 07:43 | XR ---
EXAMINATION TYPE: XR chest 2V DATE OF EXAM: 01/19/2022 6:29 AM COMPARISON: Chest radiograph from one day prior. TECHNIQUE: XR chest 2V Frontal and lateral views of the chest. CLINICAL INDICATION:Male, 66 years old with history of Post cardiac surgery; FINDINGS: Lungs/Pleura: There is no evidence of focal consolidation, or pneumothorax. Bilateral pleural effusi ons. Pulmonary vascularity: Unremarkable. Heart/mediastinum: Cardiomediastinal silhouette is unremarkable. Left atrial appendage occlusion [place] ce is present. Musculoskeletal: No acute osseous pathology. Midline sternotomy wires are noted. Tubes: Removal left thoracotomy tube. No evidence of pneumothorax. IMPRESSION: 1. Left thoracotomy tube has been removed. There is no evidence of pneumothorax. 2. Trace bilateral pleural effusions.
[2022-01-19] MEDS: IPRATROPIUM-ALBUTEROL 3 ML NEB INHALATION SCH ×3 (09:03→15:50)
[2022-01-19] MEDS: ASPIRIN 325 MG TAB PO SCH (09:14)
[2022-01-19] MEDS: DILTIAZEM CD 120 MG CAP.ER.24H PO SCH (09:14)
[2022-01-19] MEDS ORDERED: METOPROLOL TARTRATE 50 MG TAB PO SCH (09:15)
[2022-01-19] MEDS: METOPROLOL TARTRATE 25 MG TAB PO SCH (09:15)
[2022-01-19] MEDS: AMIODARONE 200 MG TAB PO SCH (09:15)
[2022-01-19] MEDS: HEPARIN SODIUM,PORCINE/PF 5,000 UNIT/0.5 ML SYRINGE SQ SCH (09:15)
[2022-01-19] MEDS: CLOPIDOGREL 75 MG TAB PO SCH (09:15)
[2022-01-19 09:17] LABS: HGB 9.6 gm/dL (13.0-17.5); MCH 31.5 pg (25.0-35.0); MCHC 35.5 g/dL (31.0-37.0); MCV 88.6 fL (80.0-100.0); Mean Platelet Volume 8.6; Platelet Count 228 k/uL (150-450); RBC 3.05 m/uL (4.30-5.90); RDW 12.3 % (11.5-15.5); WBC 11.5 k/uL (3.8-10.6)
--- NOTE | 2022-01-19 09:24 | P.PN ---
Subjective Progress Note Date: 01/19/22 Principal diagnosis: Coronary artery disease. Past medical history significant for hypertension, hyperlipidemia, arthritis, previous tobacco dependence, obstructive sleep apnea with home CPAP use, remote history of pneumonia, and family history of premature coronary artery disease with father diagnosed before the age of 60. POD #4 off-pump coronary artery bypass grafting 4 with left internal mammary artery to the left anterior descending artery, left radial artery to the obtuse marginal artery, reverse saphenous vein graft to the first diagonal artery, reverse saphenous vein graft to the posterior descending coronary artery, ligation of the left atrial appendage with a 35 mm AtriCure clip, endovascular vein harvest of the left greater saphenous vein and left radial artery. Intraoperative transesophageal echocardiogram performed by anesthesia. Postoperative acute blood loss anemia, expected given hemodilution. Atrial fibrillation, known common occurrence after open heart surgery, not a complication. The patient was seen and examined in follow-up this morning 01/19/2022. Currently the patient is laying in bed, with his CPAP in place, is awake, alert, oriented 3 and is in no acute apparent distress. Denies any complaints of pain or shortness of breath at this time, although he reports that he had an episode of atrial fibrillation this morning which was self-limiting as he is back in normal sinus rhythm. Remote telemetry is currently showing normal sinus rhythm heart rate 84 BPM. He remains hemodynamically stable and is currently on no inotropic pressor support. He remains on amiodarone 400 mg by mouth twice a day for atrial fibrillation prophylaxis. Oxygen saturation are 97% on room air and he is achieving 1500 mL on his incentive spirometry with encouragement. He reports he has been up ambulating in the cardiac stepdown unit hallway with standby assistance from nursing staff, and tolerating well. Chest x-ray reviewed. Objective - Vital Signs Vital signs: Vital Signs Temp 98.2 F 01/19/22 04:00 Pulse 63 01/19/22 04:00 Resp 16 01/19/22 04:00 BP 120/54 01/19/22 04:00 Pulse Ox 97 01/19/22 04:00 FiO2 40 01/15/22 21:49 Intake & Output 01/18/22 01/19/22 01/19/22 18:59 06:59 18:59 Intake Total 0 780.008 Output Total 625 Balance 0 155.008 Weight 102 kg Intake: Intake, IV Titration 380.008 Amount Amiodarone 450 mg In 380.008 Dextrose 5% in Water 250 ml @ 0.5 MG/MIN 16.667 mls/hr IV .Q15H PRN Rx#: [id number] Oral 0 400 Output: Urine 625 Other: Voiding Method Urinal Urinal # Voids 2 ABP, PAP, CO, CI - Last Documented Arterial Blood Pressure 96/58 Pulmonary Artery Pressure 19/11 Cardiac Output 7 Cardiac Index 3.1 - Exam CONSTITUTIONAL: Lying in bed on the cardiac stepdown unit. Appears comfortable, cooperative, no acute distress. RESPIRATORY: Lungs sounds diminished bilaterally. Respirations are symmetrical, nonlabored. Currently on room air with oxygen saturation 97%. Able to achieve 1500 mL on incentive spirometry. Strong cough. CARDIOVASCULAR: S1, S2 present. Regular rate and rhythm, normal sinus rhythm on remote telemetry showing a heart rate of 84 bpm. Sternum stable. Palpable peripheral pulses bilaterally. No edema present. No calf pain or tenderness. Heart hugger in place with patient demonstrating appropriate use. Antiembolism stockings, SCDs present. GASTROINTESTINAL: Abdomen soft, nontender, nondistended. Active bowel sounds present 4 quadrants. Tolerating diet. Positive flatus. GENITOURINARY: Continues to void. Urine output 425 mL in the last 8 hours. INTEGUMENTARY: Skin is warm and dry with evidence of good perfusion. Midline sternal incision is well approximated and covered with dry intact dressing. Left lower extremity EVH site well approximated without redness or drainage. Left radial artery harvest sites clean, dry and approximated. No drainage or redness present. NEUROLOGIC: Cranial nerves II through XII intact. MUSKULOSKELETAL: Able to move all extremities, strength equal bilaterally, gait normal. PSYCHIATRIC: Alert and oriented to person place and time, appropriate affect, intact judgment and insight. - Allied health notes Allied health notes reviewed: nursing - Labs CBC & Chem 7: 01/18/22 06:55 01/18/22 06:55 Labs: Abnormal Lab Results - Last 24 Hours (Table) 01/18/22 01/18/22 01/18/22 Range/Units 11:37 16:26 19:47 POC Glucose (mg/dL) 124 H 122 H 163 H (70-110) mg/dL 01/19/22 Range/Units 06:05 POC Glucose (mg/dL) 122 H (70-110) mg/dL - Imaging and Cardiology Chest x-ray: report reviewed, image reviewed Assessment and Plan Assessment: 1. Coronary artery disease, status post four-vessel off-pump CABG 2. History of hypertension 3. Hyperlipidemia, treated, cholesterol 102, LDL 41 4. Arthritis 5. Previous tobacco dependence, preoperative FEV1 93% of predicted 6. Obstructive sleep apnea with home CPAP use 7. Remote history of pneumonia 8. Family history of premature coronary artery disease with father diagnosed before the age of 60 9. Postoperative acute blood loss anemia, expected given hemodilution 10. Atrial fibrillation, status post left atrial appendage ligation Plan: 1. Continue low-dose aspirin, statin, and beta luis. Will increase metoprolol tartrate 50 mg by mouth twice a day. 2. Continue calcium channel luis for radial artery spasm prophylaxis, transition to long-acting 3. Continue amiodarone 400 mg po BID. We will start Eliquis 5 mg by mouth twice a day for anticoagulation. Discontinue Plavix. 4. Encourage incentive spirometry is 10 times every hour while awake. Bronchodilators, CPAP management per pulmonology. 5. Increase activity, ambulate as tolerated. PT/OT/cardiac rehab following. 6. Will monitor daily labs and chest x-rays. Electrolyte replacement per protocol. 7. GI/DVT prophylaxis. 8. Insulin management per primary care service. Patient is not diabetic, hemoglobin A1c 5.8% 9. Pain control with current medication regimen. 10. Anticipate discharge home today with home health care. 11. Strict accurate intake and output. Daily weights. 12. More recommendations to follow based on patient's clinical course. Time with Patient: Greater than 30
[2022-01-19 09:30] LABS: African American GFR (CKD) >90 (>60 ml/min/1.73 sqM); Anion Gap 5 mmol/L; Blood Urea Nitrogen 26 mg/dL (9-20); Calcium 8.1 mg/dL (8.4-10.2); Carbon Dioxide 28 mmol/L (22-30); Chloride 98 mmol/L (98-107); Glucose 108 mg/dL (74-99); Magnesium 2.3 mg/dL (1.6-2.3); Non-African American GFR(CKD) 81 (>60 ml/min/1.73 sqM); Potassium 4.3 mmol/L (3.5-5.1); Sodium 131 mmol/L (137-145)
[2022-01-19] MEDS ORDERED: APIXABAN 5 MG TAB PO SCH (10:00)
[2022-01-19] MEDS ORDERED: METOPROLOL TARTRATE 25 MG TAB PO STA (10:49)
--- NOTE | 2022-01-19 11:07 | P.PN ---
Subjective Progress Note Date: 01/19/22 HISTORY OF PRESENT ILLNESS: Patient is s/p CABG x 4. Postop day #3. Patient examined this morning. He is sitting up in the chair. He denies shortness of breath. He denies chest pain or pressure. This morning the patient was in atrial fibrillation. However at the time of examination he is in sinus mechanism with a heart rate in the 60s. Vital signs are stable. 01/19/2022 Patient examined this morning. He is sitting up in the chair. He denies chest pain or pressure. He denies shortness of breath. He has been handling. Telemetry reveals sinus mechanism with a heart rate in the 90s. PHYSICAL EXAM: VITAL SIGNS: Reviewed. GENERAL: Well-developed in no acute distress. NECK: Supple. No JVD or thyromegaly LUNGS: Respirations even and unlabored. Lungs essentially clear to auscultation bilaterally. HEART: Regular rate and rhythm. S1 and S2 heard. EXTREMITIES: Normal range of motion. No clubbing or cyanosis. Peripheral pulses intact. No lower extremity edema ASSESSMENT: Coronary artery disease, status post four-vessel CABG Paroxysmal atrial fibrillation, currently maintaining sinus mechanism Hyperlipidemia Obstructive sleep apnea Former nicotine dependence PLAN: Continue postoperative management per cardiothoracic surgery Continue current cardiac medications Encourage use of incentive spirometer Increase activity as tolerated Patient has been started on anticoagulation in the form of Eliquis Beta luis has been increased this morning per cardiothoracic surgery Patient is stable for discharge from a cardiac standpoint Further recommendations pending patient course Nurse practitioner note has been reviewed by physician. Signing provider agrees with the documented findings, assessment, and plan of care. Objective - Vital Signs Vital signs: Vital Signs Temp 98.8 F 01/19/22 08:00 Pulse 80 01/19/22 09:16 Resp 17 01/19/22 08:00 BP 115/71 01/19/22 08:00 Pulse Ox 95 01/19/22 08:00 FiO2 40 01/15/22 21:49 Intake & Output 01/18/22 01/19/22 01/19/22 18:59 06:59 18:59 Intake Total 0 780.008 0 Output Total 625 Balance 0 155.008 0 Weight 102 kg Intake: Intake, IV Titration 380.008 Amount Amiodarone 450 mg In 380.008 Dextrose 5% in Water 250 ml @ 0.5 MG/MIN 16.667 mls/hr IV .Q15H PRN Rx#: [id number] Oral 0 400 0 Output: Urine 625 Other: Voiding Method Urinal Urinal # Voids 2 ABP, PAP, CO, CI - Last Documented Arterial Blood Pressure 96/58 Pulmonary Artery Pressure 19/11 Cardiac Output 7 Cardiac Index 3.1 - Labs CBC & Chem 7: 01/19/22 08:34 01/19/22 08:34 Labs: Abnormal Lab Results - Last 24 Hours (Table) 01/18/22 01/18/22 01/18/22 Range/Units 11:37 16:26 19:47 WBC (3.8-10.6) k/uL RBC (4.30-5.90) m/uL Hgb (13.0-17.5) gm/dL Hct (39.0-53.0) % Sodium (137-145) mmol/L BUN (9-20) mg/dL Glucose (74-99) mg/dL POC Glucose (mg/dL) 124 H 122 H 163 H (70-110) mg/dL Calcium (8.4-10.2) mg/dL 01/19/22 01/19/22 01/19/22 Range/Units 06:05 08:34 08:34 WBC 11.5 H (3.8-10.6) k/uL RBC 3.05 L (4.30-5.90) m/uL Hgb 9.6 L (13.0-17.5) gm/dL Hct 27.0 L (39.0-53.0) % Sodium 131 L (137-145) mmol/L BUN 26 H (9-20) mg/dL Glucose 108 H (74-99) mg/dL POC Glucose (mg/dL) 122 H (70-110) mg/dL Calcium 8.1 L (8.4-10.2) mg/dL
[2022-01-19 11:32] LABS: Glucose,Whole Blood 106 mg/dL (70-110)
--- NOTE | 2022-01-19 12:01 | P.PN ---
Subjective Progress Note Date: 01/19/22 Principal diagnosis: Status post CABG. Progress Note Date: 01/17/22 This is a pleasant 66-year-old male patient with a known history of chronic tobacco dependence, chronic obstructive sleep apnea on home CPAP, hypertension, hyperlipidemia, arthritis. He was found to havesignificant coronary artery disease and presented here yesterday for an elective bypass surgery. He had undergone an off-pump coronary artery bypass grafting 4 with a SCHREIBER to the LAD, left radial artery to the obtuse marginal, SVG to the first diagonal, SVG to the PDA. He also had left atrial clip placed. He was extubated in less than 6 hours. He is currently seen in the intensive care unit. Sitting up in the chair at the bedside. Currently maintaining good O2 saturations in the 90s on room air. He is on a Cardizem drip at 5 mg per hour. Nitroglycerin drip has been weaned off. He is on a insulin drip at 1.5 units per hour. Lactated Ringer's at 50 MLS per hour. chest x-ray reveals interval removal endotracheal and an nasogastric tube. Mediastinal and left pleural chest tubes remain in place. Right IJ [place] catheter in place. No evidence of pneumothorax. There is some left basilar atelectasis. white count 9.6. Hemoglobin 11.1. Sodium 135. Potassium 3.8. Bicarb 24. BUN 21. Creatinine 0.64. Glucose 120. Albumin 3.6. cardiac output 7. Cardiac index 3.1. PA pressures 19/7. He is continued on bronchodilators. Received albumin. Heparin for DVT prophylaxis. The patient is seen today 01/17/2022 in follow-up in the intensive care unit. He is currently sitting up in a chair at the bedside. Awake and alert in no acute distress. He is maintaining good O2 saturations in the 90s on room air. No IV fluids currently. Rest x-ray reveals left thoracotomy to present without evidence of pneumothorax. Chest tubes within the mediastinum. Post [place] removal. Cordis is present. White count 11.9. Hemoglobin 10.7. Sodium 133. Potassium 4.5. BUN 23. Creatinine 0.78. Glucose 145. Albumin 3.4. He is continued on DuoNeb inhalations. Continues to work well with the incentive spirometer. Heparin for DVT prophylaxis. Progress note dated 01/18/2022. 66-year-old male, postop day #3, status post bypass grafting. The patient is d oing very well. He is currently on room air. The patient is currently on amiodarone 0.5 mg/m. He is resting comfortably in his room. Labs today include a white count 11.5, hemoglobin 10, hematocrit 28.3, and platelet count 163,000. Sodium 131, potassium 4.3, chlorides 101, CO2 22, BUN 29, creatinine 0.95. Chest x-ray show some bibasilar patchy atelectasis, and a left-sided chest tube. Progress note dated 01/19/2022. 66-year-old male, postop day 4, status post bypass grafting. He is currently seen today in room 350. He sitting in a chair next to his bed. He is not requiring any supplemental oxygen, or IV fluids. The patient is being considered for possible discharge home. I asked the patient to take his incentive spirometer home with him. I asked him to continue using it, and I mention to him, that we will see us in the office, and a couple weeks. White count 11.5, hemoglobin 9.6, hematocrit 27, platelet count 228,000. Sodium 131, potassium 4.3, chlorides 98, CO2 28, BUN 26, and creatinine 0.98. Objective - Vital Signs Vital signs: Vital Signs Temp 98.8 F 01/19/22 08:00 Pulse 80 01/19/22 09:16 Resp 17 01/19/22 08:00 BP 115/71 01/19/22 08:00 Pulse Ox 95 01/19/22 08:00 FiO2 40 01/15/22 21:49 Intake & Output 01/18/22 01/19/22 01/19/22 18:59 06:59 18:59 Intake Total 0 780.008 0 Output Total 625 Balance 0 155.008 0 Weight 102 kg Intake: Intake, IV Titration 380.008 Amount Amiodarone 450 mg In 380.008 Dextrose 5% in Water 250 ml @ 0.5 MG/MIN 16.667 mls/hr IV .Q15H PRN Rx#: [id number] Oral 0 400 0 Output: Urine 625 Other: Voiding Method Urinal Urinal # Voids 2 ABP, PAP, CO, CI - Last Documented Arterial Blood Pressure 96/58 Pulmonary Artery Pressure 19/11 Cardiac Output 7 Cardiac Index 3.1 - Exam No acute distress, oriented 3. Currently on room air. HEENT examination is grossly unremarkable. Neck supple. Full range of motion. No adenopathy thyromegaly or neck vein distention. Cardiovascular examination reveals regular rhythm rate. S1-S2 normal. No S3 or S4. No discernible murmur noted. Heart rate 80 bpm. Lungs reveal clear breath sounds. Breath sounds are equal bilaterally. No adventitious lung sounds including wheezes rhonchi or crackles. Room air satura tion 95%. Abdomen soft bowel sounds are heard. No masses or tenderness. Extremities are intact. No cyanosis clubbing or edema. Skin is without rash or lesion. Neurologic examination is brief but nonfocal. - Labs CBC & Chem 7: 01/19/22 08:34 01/19/22 08:34 Labs: Abnormal Lab Results - Last 24 Hours (Table) 01/18/22 01/18/22 01/19/22 Range/Units 16:26 19:47 06:05 WBC (3.8-10.6) k/uL RBC (4.30-5.90) m/uL Hgb (13.0-17.5) gm/dL Hct (39.0-53.0) % Sodium (137-145) mmol/L BUN (9-20) mg/dL Glucose (74-99) mg/dL POC Glucose (mg/dL) 122 H 163 H 122 H (70-110) mg/dL Calcium (8.4-10.2) mg/dL 01/19/22 01/19/22 Range/Units 08:34 08:34 WBC 11.5 H (3.8-10.6) k/uL RBC 3.05 L (4.30-5.90) m/uL Hgb 9.6 L (13.0-17.5) gm/dL Hct 27.0 L (39.0-53.0) % Sodium 131 L (137-145) mmol/L BUN 26 H (9-20) mg/dL Glucose 108 H (74-99) mg/dL POC Glucose (mg/dL) (70-110) mg/dL Calcium 8.1 L (8.4-10.2) mg/dL Assessment and Plan Assessment: Postop day #4, status post four-vessel bypass grafting. Routine postoperative ventilator management. Atrial fibrillation, with RVR, now on amiodarone. Previous chronic tobacco dependence, with only mild COPD. History of hyperlipidemia. History of hypertension. Sleep apnea syndrome, currently on CPAP. Plan: Plan dated 01/18/2022. Overall, the patient's doing very well. The patient is resting comfortably and is currently not on any supplemental oxygen. He did develop atrial fibrillation with RVR, and is currently on amiodarone IV. Labs, x-rays, and medications are reviewed. He's postop day #3. He had a four-vessel bypass grafting. We will continue to follow make recommendations along the way. Prognosis is guarded. Plan dated 01/19/2022. The patient appears to be doing relatively well. Labs, x-rays, and medications are reviewed. The patient is being considered for possible discharge home today. The patient will see us in the office in a couple of weeks. I did asked the patient to take home his incentive spirometer. The patient is not on any supplemental oxygen, and not receiving any IV fluids. Prognosis is good. Time with Patient: Less than 30
[2022-01-19 16:19] VITALS: BP 113/73; PULSE 86; RESP 17; TEMP 98.8
--- NOTE | 2022-01-22 14:04 | P.DS ---
Providers Date of admission: 01/15/22 09:25 Expected date of discharge: 01/19/22 Attending physician: Poli Watt Consults: 01/15/22 18:10 Consult Physician Routine Consulting Provider: Davis Chavez Consult Reason/Comments: Seasoner Consult: post cardiac surgery Do you want consulting provider notified?: Yes Consult Physician Routine Consulting Provider: Mary Rivas Consult Reason/Comments: med mgmt Do you want consulting provider notified?: Yes, Notify in am Consult Physician Routine Consulting Provider: Moni Salamanca Consult Reason/Comments: Blindstitch Lapel Padder Consult: post cardiac surgery Do you want consulting provider notified?: Yes, Notify in am Primary care physician: Mary Rivas Hospital Course: FINAL DIAGNOSIS: 1. Coronary artery disease, status post four-vessel off-pump CABG 2. History of hypertension 3. Hyperlipidemia, treated, cholesterol 102, LDL 41 4. Arthritis 5. Previous tobacco dependence, preoperative FEV1 93% of predicted 6. Obstructive sleep apnea with home CPAP use 7. Remote history of pneumonia 8. Family history of premature coronary artery disease with father diagnosed before the age of 60 9. Postoperative acute blood loss anemia, expected given hemodilution 10. Atrial fibrillation, status post left atrial appendage ligation PRINCIPAL PROCEDURE: 1. Off-pump coronary artery bypass grafting 4 with left internal mammary artery to left anterior descending coronary artery, left radial artery to the obtuse marginal coronary artery, a reverse greater saphenous vein graft to the first diagonal coronary artery, and a reverse greater saphenous vein graft to the posterior descending coronary artery. 2. Ligation of the left atrial appendage with a 35 mm Atricure clip. 2. Endovascular vein harvest of the left greater saphenous vein and the left radial artery. 3. Intraoperative transesophageal echocardiogram performed by anesthesia. HISTORY OF PRESENT ILLNESS: This is a 66-year-old gentleman who is followed on an outpatient basis for his primary care service with Dr. Mary Rivas and Dr. Gilbert for his cardiology care. Recently, the patient has had complaints of mild shortness of breath while cutting his grass and subsequently due to his complaints of shortness of breath underwent a calcium scoring CT which was positive for high calcium scoring. Subsequently he was evaluated by Dr. Gilbert from cardiology and subsequently the patient underwent a stress test. The patient's stress test was positive and for further evaluation the patient underwent a cardiac catheterization which demonstrated severe three-vessel coronary artery disease. The heart catheterization demonstrated a 90% plus stenosis of the left anterior descending coronary artery after the takeoff of the first diagonal branch, and 80-90% stenosis to his first diagonal coronary artery, a totally occluded first obtuse marginal coronary artery which fills via collaterals, and 80-85% stenosis to his obtuse marginal #2 coronary artery and it 80% proximal stenosis to his right coronary artery which leads to his PDA and DORINA. Due to the patient's symptoms, positive stress test and findings on his cardiac catheterization a consult was placed to Dr. Poli Watt from cardiothoracic surgery for further evaluation and treatment recommendations including myocardial revascularization surgery. Dr. Watt met with the patient, discussed treatment options including myocardial revascularization surgery, risks and benefits of the surgery were discussed including the STS risk score and knowing and understanding the risks the patient wished to proceed with the surgical option. HOSPITAL COURSE: On 01/15/2022 the patient was admitted to the hospital, taken to the preoperative area, prepared in the usual fashion and subsequently taken to the operating room where Dr. Poli Watt performed a four-vessel coronary artery bypass grafting surgery. Upon completion of the surgery the patient was transferred to the cardiovascular intensive care unit where he was recovered and monitored hemodynamically. He was extubated, all lines, tubes and supportive drips were discontinued when appropriate and he was transferred to the third floor cardiac stepdown unit for further monitoring and rehabilitation. His oxygen was titrated down, he continued to work with physical, occupational thera py, cardiac rehab, he was tolerating an oral diet, his pain was well controlled and he was ready to be discharged home with a [facility] home health care on postoperative day #4. He has received written and verbal instructions regarding his medications, activity restrictions, signs and symptoms requiring physician or medication and his follow-up appointments. Plan - Discharge Summary Discharge Rx Participant: No New Discharge Prescriptions: New Amiodarone [Cordarone] 400 mg PO BID #34 tab Apixaban [Eliquis] 5 mg PO BID #60 tab Metoprolol Tartrate [Lopressor] 50 mg PO BID #60 tab Pantoprazole [Protonix] 40 mg PO AC-BRKFST #30 tab Acetaminophen Tab [Tylenol] 650 mg PO Q4HR PRN tab PRN Reason: Fever And/ Or Pain Diltiazem Cd [Cardizem CD] 120 mg PO DAILY #30 cap Sennosides-Docusate Sodium [Senokot-S] 2 each PO HS #14 tab Continue Aspirin 81 mg PO DAILY Atorvastatin [Lipitor] 80 mg PO HS #30 tab Discontinued Triamterene/Hydrochlorothiazid [Triamterene-Hctz 37.5-25 mg Cp] 1 each PO DAILY Glucosamine HCl/Chondroitin Garcia [Glucosamine-Chondroitin Cap] 1 each PO DAILY amLODIPine [Norvasc] 2.5 mg PO DAILY Discharge Medication List Aspirin 81 mg PO DAILY 01/10/22 [History] Acetaminophen Tab [Tylenol] 650 mg PO Q4HR PRN tab 01/19/22 [Rx] Amiodarone [Cordarone] 400 mg PO BID #34 tab 01/19/22 [Rx] Apixaban [Eliquis] 5 mg PO BID #60 tab 01/19/22 [Rx] Atorvastatin [Lipitor] 80 mg PO HS #30 tab 01/19/22 [Rx] Diltiazem Cd [Cardizem CD] 120 mg PO DAILY #30 cap 01/19/22 [Rx] Metoprolol Tartrate [Lopressor] 50 mg PO BID #60 tab 01/19/22 [Rx] Pantoprazole [Protonix] 40 mg PO AC-BRKFST #30 tab 01/19/22 [Rx] Sennosides-Docusate Sodium [Senokot-S] 2 each PO HS #14 tab 01/19/22 [Rx] Follow up Appointment(s)/Referral(s): Rehab [facility],Cardiac [NON-STAFF] - 4 Weeks (You will receive a phone call in approximately 4-6 weeks for evaluation for cardiac rehab) Mary Rivas MD [Primary Care Provider[facility] - 1-2 Days (To be seen day after discharge, then 2-3 times per week for 4 weeks) Ernesto Gilbert MD [STAFF PHYSICIAN] - 02/08/22 4:45 pm Poli Watt MD [STAFF PHYSICIAN] - 02/08/22 11:00 am Ford Candelario NPC [Nurse Practitioner] - 01/24/22 11:00 am (Please follow-up at the office located at [address] [place] [address], [facility] [[email or web address]] 1, [facility], [facility]. Office number is [phone].) Davis Chavez DO [Doctor of Osteopathic Medicine] - 02/19/22 2:00 pm Activity/Diet/Wound Care/Special Instructions: DISCHARGE INSTRUCTIONS: 1. No driving for 4 weeks, or until physician gives their ok. 2. The patient should sleep in their own bed, no medical bed needed. 3. Stairs are not an issue. If the bedroom is upstairs, it is advised that the patient go up at night and down in the morning for the first week. Go slowly, using handrail and take 1 step at a time. 4. BEATRIZ hose are to be worn for 30 days post surgery or until physician discontinues. 5. Heart hugger is to be worn 100% of the time until physician discontinues.(except when showering) 6. No lifting, pushing, or pulling more than 10 pounds for 12 weeks. The physician will advise of any restriction changes. 7. The patient is expected to continue the prescribed walking program. 8. Continue pain control per as needed orders. 9. Continue with incentive spirometry and splinting/heart hugger until otherwise directed by the physician. 10. Must shower daily using liquid antibacterial soap 11. Routine sternal incision care. No powders, lotions, ointments on incisions. No dressings are necessary on incisions unless they are draining. Dermabond tape is to remain on sternal incision until surgeon follow-up. 12. Please call surgeon/LEARNING COORDINATOR for temp greater than 101 F or purulent drainage from incisions. 13. You should weigh yourself daily, record and bring log with you to follow up appointments. 14. All prescriptions given by surgeon for 30 days. Refills need to be filled through lead enterprise architect/primary care physician. 15. A Red armband has been placed on the patient. It should be worn for 30 days post discharge from surgery and will be removed by the cardiac surgeons. If an ER visit is necessary, please make sure the number on the Red armband is called before going to ER. 16. You have been referred to and are expected to begin Cardiac Rehab in approximately 4-6 weeks. HOME HEALTH SERVICES TO PROVIDE: RN SKILLED HOME CARE SERVICES FOR POST-OP SURGICAL PATIENTS WITH THE FOLLOWING: Coronary Artery Bypass Surgery (CABG), Mitral Valve Replacement/Repair ( MVR), Aortic Valve Replacement/Repair (AVR) RN TO CONTINUE EDUCATION FROM ``ROAD TO A HEALTH HEART PATIENT EDUCATION MANUAL (GIVEN TO PATIENT IN THE HOSPITAL) MEDICATION RECONCILIATION WITH EDUCATION NEEDED ON FIRST HOME VISIT EMPHASIZE IMPORTANCE OF WEARING BREAST SUPPORT/HEART HUGGER ENCOURAGE USE OF INCENTIVE SPIROMETER 10 X EVERY HOUR WHILE AWAKE ENCOURAGE UTILIZATION OF LOWER EXTREMITY COMPRESSION STOCKINGS/BEATIRZ HOSE and ELEVATE LEGS ABOVE LEVEL OF HEART WHILE AT REST. ENCOURAGE AMBULATION 3-5x/day INCREASING TOLERATES, WHILE AVOIDING EXTREMES IN TEMPERATURE FREQUENCY: RN TO OPEN THE PATIENT WITHIN 24 HOURS OF DISCHARGE FROM THE HOSPITAL WITH TELEHEALTH INSTALLED AT [facility], RN TO VISIT 2-3 X A WEEK FOR 4 WEEKS ESTABLISHED BY PATIENT NEEDS. LABORATORY: CBC, CMP TO BE DRAWN ON THE THIRD DAY HOME, (RAN STAT) FAX RESULTS TO [phone]. TELEHEALTH PARAMETERS: WEIGHT: NOTIFY MD OF WEIGHT GAIN OF 2 LBS IN 24 HOURS OR 5 LBS IN ONE WEEK HR: NOTIFY MD OF HR <55 BPM OR HR>100 BPM BP: NOTIFY MD IF BP <90/55 OR BP>140/100 O2 SAT: NOTIFY MD IF PO2<93% ON ROOM AIR SEND TELEHEALTH REPORT TO ASSURANCE SPECIALIST AND CARDIOVASCULAR SURGEON THE FIRST WEEK OF CARE AND THEN BI-WEEKLY. PLEASE ADDITIONALLY COMMUNICATE ANY ABNORMALS AND NEW FINDINGS TO THE SURGEONS OFFICE. Discharge Disposition: HOME WITH HOME HEALTH SERVICES
== END 2022-01-19 17:46 | disposition home health service (06) | DRG 236 ==
LOC: 2ORMAIN 09:25 → 2SICU 18:03 → 3SCARD 01-17 17:58
PROVIDERS: ADMIT Thoracic Surgery (Cardiothoracic Vascular Surgery); ATTEND Thoracic Surgery (Cardiothoracic Vascular Surgery)
PROC: 02L70CK Occlusion of Left Atrial Appendage with Extraluminal Device, Open Approach (ICD-10-PCS; 2022-01-15)
PROC: 02100Z9 Bypass Coronary Artery, One Artery from Left Internal Mammary, Open Approach (ICD-10-PCS; principal; 2022-01-15 12:15)
PROC: 021 Heart and Great Vessels, Bypass (ICD-10-PCS; 2022-01-15 12:15)
PROC: 06BQ4ZZ Excision of Left Saphenous Vein, Percutaneous Endoscopic Approach (ICD-10-PCS; 2022-01-15 12:15)
PROC: 03BC4ZZ Excision of Left Radial Artery, Percutaneous Endoscopic Approach (ICD-10-PCS; 2022-01-15 12:15)
DX: I25.10 Atherosclerotic heart disease of native coronary artery without angina pectoris (principal); D62 Acute posthemorrhagic anemia; I11.9 Hypertensive heart disease without heart failure; J44.9 Chronic obstructive pulmonary disease, unspecified; I25.82 Chronic total occlusion of coronary artery; E78.5 Hyperlipidemia, unspecified; G47.33 Obstructive sleep apnea (adult) (pediatric); I08.1 Rheumatic disorders of both mitral and tricuspid valves; I48.0 Paroxysmal atrial fibrillation; M19.90 Unspecified osteoarthritis, unspecified site; Z96.641 Presence of right artificial hip joint; Z28.310 Unvaccinated for COVID-19; Z87.891 Personal history of nicotine dependence; Z87.01 Personal history of pneumonia (recurrent); Z79.899 Other long term (current) drug therapy; Z79.82 Long term (current) use of aspirin; Z82.49 Family history of ischemic heart disease and other diseases of the circulatory system; Z79.01 Long term (current) use of anticoagulants
CPT/HCPCS: 36600; 71045; 71046; 80048; 80053; 82330; 82805; 83036; 83735; 84132; 85025; 85027; 85520; 85610; 85730; 86850; 86891; 86900; 86901; 86920; 94002; 94640; 94760

== ENCOUNTER → 2024-05-21 | Outpatient (CLI) | payer MEDICARE ==
--- NOTE | 2024-05-21 11:33 | XR ---
EXAMINATION TYPE: XR KUB DATE OF EXAM: 05/21/2024 11:24 AM COMPARISON: None. CLINICAL INDICATION: Male, 69 years old with history of N20.0 LEFT CALCULUS OF THE KIDNEY, TECHNIQUE: Single view of the abdomen. FINDINGS: Right renal calculi: None Visualized. Right ureteral calculi: None Visualized. Left renal calculi: Large renal calculus overlying the region of the left renal pelvis measuring 3.7 x 2.6 cm. Left ureteral calculi: None Visualized. Pelvic calcifications: Yes Bowel gas pattern is unremarkable. No free air. No mass effects. IMPRESSION: 1. Large renal calculus overlying the region of the left renal pelvis measuring 3.7 x 2.6 cm. [facility], , 05/21/2024 11:30 AM
== END | disposition home or self-care (01) ==
LOC: RADXRMAIN 11:00
PROVIDERS: ATTEND Urology
DX: N20.0 Calculus of kidney (principal)
CPT/HCPCS: 74018

== ENCOUNTER → 2024-05-27 | Outpatient (CLI) | payer MEDICARE ==
[2024-05-27 15:23] LABS: BUN/Creat Ratio 20.67 Ratio (12.00-20.00); Blood Urea Nitrogen 24.8 mg/dL (9.0-27.0); Calcium 9.5 mg/dL (8.7-10.3); Carbon Dioxide 26.1 mmol/L (21.6-31.8); Chloride 106 mmol/L (96-109); Glucose 107 mg/dL (70-110); Potassium 4.5 mmol/L (3.5-5.5); Sodium 141 mmol/L (135-145)
[2024-05-27 16:02] LABS: Basophils # (A) 0.05 X 10*3/uL (0.00-0.10); Basophils % (A) 0.8 %; Eosinophils # (A) 0.12 X 10*3/uL (0.04-0.35); Eosinophils % (A) 1.9 %; HGB 13.5 g/dL (13.0-17.0); Lymphocytes % (A) 25.4 %; MCH 29.9 pg (27.0-32.0); MCHC 32.9 g/dL (32.0-37.0); MCV 90.9 FL (80.0-97.0); Mean Platelet Volume 10.7 FL (9.5-12.2); Monocytes # (A) 0.61 X 10*3/uL (0.20-1.00); Monocytes % (A) 9.7 %; NRBC Per 100 WBC 0 X 10*3/uL (0.00-0.01); Neutrophils # (A) 3.91 X 10*3/uL (1.80-7.70); Platelet Count 197 X 10*3/uL (140-440); RBC 4.51 X 10*6/uL (4.40-5.60); RDW 12.5 % (11.5-14.5)
== END | disposition home or self-care (01) ==
LOC: LABPAT 11:10
PROVIDERS: ATTEND Urology
DX: Z01.812 Encounter for preprocedural laboratory examination (principal); N20.0 Calculus of kidney
CPT/HCPCS: 80048; 85025

== ENCOUNTER 2024-06-03 07:44 | Day surgery (SDC) | payer MEDICARE ==
--- NOTE | 2024-06-02 11:54 | P.GSHP ---
History of Present Illness H&P Date: 06/02/24 69-year-old gentleman sent to us from Dr. Rizvi because of evaluation of hematuria. Dr. Ackerman saw the patient and a CAT scan was ordered. A 2.6 cm left renal pelvic stone and a secondary left lower pole stone, 11 mm were identified. I was asked to see the patient for possible percutaneous neph rostolithotomy left patient was seen and evaluated and indeed has the above- mentioned findings. The CT scan is reviewed. We discussed treatment options including observation percutaneous nephrostolithotomy ureteroscopy, multiple open surgery. Given the size and location of the stone he would best benefit from a percutaneous nephrostolithotomy on the left side. We discussed second opinion and referral to a Medical Center. He comes for this procedure. The risks and complications including infection bleeding pain injury to the adjacent organs including the kidney, lung, bowel. He comes for this procedure. The risk of transfusions also discussed. - Constitutional Constitutional: Denies chills, Denies fever - EENT Eyes: denies blurred vision, denies pain Ears, nose, mouth and throat: Denies headache, Denies sore throat - Cardiovascular Cardiovascular: Denies chest pain, Denies shortness of breath - Respiratory Respiratory: Denies cough, Denies 7 - Gastrointestinal Gastrointestinal: Denies abdominal pain, Denies diarrhea, Denies nausea, Denies vomiting - Genitourinary (Female) Genitourinary: Denies dysuria, Denies hematuria - Genitourinary (Male) Genitourinary: Denies dysuria, Denies hematuria - Musculoskeletal Musculoskeletal: Denies myalgias - Integumentary Integumentary: Denies pruritus, Denies rash - Neurological Neurological: Denies numbness, Denies weakness - Psychiatric Psychiatric: Denies anxiety, Denies depression - Endocrine Endocrine: Denies fatigue, Denies weight change Past Medical History Past Medical History: Hyperlipidemia, Hypertension, Pneumonia, Sleep Apnea/CPAP/BIPAP Additional Past Medical History / Comment(s): USES CPAP, HX KIDNEY STONES 30 plus stones,PNEUMONIA YRS AGO History of Any Multi-Drug Resistant Organisms: None Reported Past Surgical History: Coronary Bypass/CABG, Orthopedic Surgery Additional Past Surgical History / Comment(s): RT HIP REPLACEMENT,LEFT INGUINAL HERNIA,LT KNEE ARTHROSCOPY, 4 vessel by pass 2021, Past Anesthesia/Blood Transfusion Reactions: No Reported Reaction Additional Past Anesthesia/Blood Transfusion Reaction / Comment(s): NO HX BLOOD TRANSFUSIONS Smoking Status: Never smoker - Past Family History Mother Family Medical History: No Reported History Father Family Medical History: Coronary Artery Disease (CAD) Additional Family Medical History / Comment(s): cabg AND VALVE REPLACEMENT AT A GE 82 Medications and Allergies Home Medications Medication Instructions Recorded Confirmed Type Aspirin 81 mg PO DAILY 01/10/22 05/28/24 History Atorvastatin [Lipitor] 80 mg PO HS #30 tab 01/19/22 05/28/24 Rx Diltiazem Cd [Cardizem CD] 120 mg PO DAILY #30 cap 01/19/22 05/28/24 Rx Creatine (Unk) 1 tab PO DAILY 05/28/24 05/28/24 History Glucosimine Chrondroitin 1 tab PO DAILY 05/28/24 05/28/24 History Leuciene (Unk) 1 tab PO DAILY 05/28/24 05/28/24 History Metoprolol Succinate (ER) [Toprol 50 mg PO DAILY 05/28/24 05/28/24 History Xl] Naproxen 500 mg PO BID 05/28/24 05/28/24 History Allergies Allergy/AdvReac Type Severity Reaction Status Date / Time No Known Allergies Allergy Verified 05/28/24 15:29 Surgical - Exam - General well developed, well nourished, no distress - Eyes normal ocular movement, no icteric - ENT no hearing loss, no congestion - Neck no masses, trachea midline - Respiratory normal respiratory effort, clear to auscultation - Abdomen Abdomen: soft, non tender, no guarding, no rigid, no rebound - Integumentary no rash, no abnormal pigmentation - Neurologic no disoriented, no combative - Psychiatric oriented to time, oriented to person, oriented to place, speech is normal, memory intact Results - Imaging CT scan - abdomen: report reviewed, image reviewed CT scan - pelvis: report reviewed, image reviewed Assessment and Plan Assessment: Impression: Left renal calculi, large greater than 2 cm Recommendations: Percutaneous nephrostolithotomy left
[~2024-06-03 07:44] MED LIST changes: -ALBUMIN HUMAN 25% 50 ML IV ONE; -ALBUMIN HUMAN 5% 500 ML IVPB ONE; -ASPIRIN 325 MG TAB PO ONE; -ATORVASTATIN 10 MG TAB PO ONE; -CALCIUM CHLORIDE 100 MG/ML 10 ML SYRINGE IV ONE; -CARDIOPLEGIC SOLN (K+ 16 MEQ/L 1,000 ML with SODIUM BICARB (1 MEQ/ML) 20 ML, LIDOCAINE ... PERFUSION ONE; -CHLORHEXIDINE GLUCONATE 15 ML CUP MUCOUS MEM ONE; -CLEVIDIPINE BUTYRATE 25 MG in EMPTY BAG 1 BAG IV ONE; -DILTIAZEM 125 MG in SODIUM CHLORIDE 0.9% 100 ML IV ONE; -HEPARIN SODIUM 1,000 UN/ML (10ML VL) IV ONE; -HEPARIN SODIUM,PORCINE 5,000 UNIT in SODIUM CHLORIDE 0.9% 500 ML 500 ML IV ONE; +HYDROmorphone 0.5 MG/0.5 ML SYRINGE IVP PRN; -INSULIN REGULAR 100 UNIT in SODIUM CHLORIDE 0.9% 100 ML IV ONE; -LACTATED RINGERS 1,000 ML IV ONE; -MAGNESIUM SULFATE 16.24 MEQ in EMPTY SYRINGE 1 SYR IV ONE; -MANNITOL 25% 12.5 GM/50 ML VIAL IV ONE; -METOPROLOL TARTRATE 12.5 MG TAB PO ONE; +MIDAZOLAM 2 MG/2 ML VIAL IV PRN; -NITROGLYCERIN SL TABS 0.4 MG TAB SUBLINGUAL ONE; -NITROGLYCERIN-D5W PMX 25 MG/250 ML BTL IV ONE; -NITROGLYCERIN-D5W PMX 50 MG in DEXTROSE/WATER 1 250ML.BAG IV ONE; -NOREPINEPHRINE 4 MG in SODIUM CHLORIDE 0.9% 250 ML IV ONE; -PAPAVERINE 360 MG in SODIUM CHLORIDE 0.9% 90 ML IV ONE; -PHENYLEPHRINE 10 MG/ML VIAL IV ONE; -PHENYLEPHRINE 40 MG in SODIUM CHLORIDE 0.9% 250 ML IV ONE; -PROTAMINE SULFATE 10 MG/ML 25 ML VIAL IV ONE; -PROTAMINE SULFATE 250 MG in EMPTY BAG 1 BAG IV ONE; -SODIUM BICARB 8.4% 50 ML SYR (1 MEQ/ML) IV ONE; -SODIUM CHLORIDE 0.9% 1,000 ML IV ONE; -TRANEXAMIC ACID 2,000 MG in SODIUM CHLORIDE 0.9% 80 ML IV ONE; -ceFAZolin 1,000 MG in SODIUM CHLORIDE 0.9% IRRIGATIO 1,000 ML IRRIGATION ONE; -propofoL 1,000 MG/100 ML VIAL IV ONE
--- NOTE | 2024-06-03 08:17 | XR ---
EXAMINATION TYPE: XR KUB DATE OF EXAM: 06/03/2024 8:08 AM COMPARISON: 05/21/2024 CLINICAL INDICATION: Male, 69 years old with history of N20.0 left renal stone; PHH, pain, preoperati ve exam prior to urology procedure. TECHNIQUE: One radiographic view of the abdomen was obtained. FINDINGS: Moderate stool burden. Nonobstructive bowel gas pattern. Large calcification left mid abdomen measuri ng 3.8 cm. Smaller poorly defined calcification measuring 1.1 cm just below the left mid abdomen. Teodoro cifications in the pelvis likely phleboliths. Partially visualized right hip total arthroplasty. Mild -to-moderate degenerative change left hip. IMPRESSION: Redemonstrated left renal stones measuring 3.8 cm and 1.1 cm. [facility], , 06/03/2024 8:14 AM
[2024-06-03] MEDS: LACTATED RINGERS 1,000 ML IV ONE (08:51)
[2024-06-03] MEDS: LACTATED RINGERS 1,000 ML IV SCH (08:56)
[2024-06-03] MEDS: DEXAMETHASONE SOD PHOSPHATE 4 MG/ML 1 ML VIAL IV ONE (08:56)
[2024-06-03] MEDS: ONDANSETRON 4 MG/2 ML VIAL IVP ONE (08:56)
[2024-06-03] MEDS ORDERED: LIDOCAINE 1% INJ 10MG/ML (20 ML MDV) ONE (09:54)
[2024-06-03] MEDS ORDERED: NEOSTIGMINE 1 MG/ML 10 ML VIAL ONE (09:54)
[2024-06-03] MEDS ORDERED: GLYCOPYRROLATE 0.2 MG/ML 2 ML VIAL ONE (09:54)
[2024-06-03] MEDS ORDERED: LIDOCAINE 4% LTA KIT (4 ML) TOPICAL ONE (09:54)
[2024-06-03] MEDS ORDERED: fentaNYL (PF) 50 MCG/ML 2 ML AMP ONE (09:54)
[2024-06-03] MEDS ORDERED: MIDAZOLAM 2 MG/2 ML VIAL ONE (09:54)
[2024-06-03] MEDS ORDERED: ROCURONIUM 10 MG/ML (5 ML VIAL) IV ONE (09:54)
[2024-06-03] MEDS ORDERED: SUCCINYLCHOLINE CHLORIDE 200 MG/10 ML VIAL IV ONE (09:54)
[2024-06-03] MEDS ORDERED: ePHEDrine 50 MG/ML 1 ML VIAL ONE (09:54)
[2024-06-03] MEDS ORDERED: PROPOFOL 10 MG/ML 20 ML VIAL IV ONE (09:54)
[2024-06-03] MEDS: AMPICILLIN 1,000 MG in SODIUM CHLORIDE 0.9% 50 ML IVPB PRN (09:57)
[2024-06-03] MEDS: GENTAMICIN 140 MG in SODIUM CHLORIDE 0.9% 100 ML IVPB PRN (09:57)
[2024-06-03] MEDS: IOPAMIDOL-370 100ML BTL MISCELLANE ONE (10:34)
[2024-06-03] MEDS ORDERED: MAG HYDROX/AL HYDROX/SIMETH 30 ML CUP PO PRN (11:32)
[2024-06-03] MEDS ORDERED: ACETAMINOPHEN TAB 325 MG TAB PO PRN (11:32)
[2024-06-03] MEDS ORDERED: ONDANSETRON 4 MG/2 ML VIAL IVP PRN (11:32)
[2024-06-03] MEDS ORDERED: NALOXONE 0.4 MG/ML 1 ML VIAL IV PRN (11:34)
--- NOTE | 2024-06-03 11:47 | FL ---
EXAMINATION TYPE: FL Perc Nephrostomy New Access DATE OF EXAM: 06/03/2024 11:35 AM COMPARISON: Pre Operative Images if available both CT/MRI or plain film CLINICAL INDICATION: Male, 69 years old with history of Left Kidney Stone; TECHNIQUE: FL Perc Nephrostomy New Access, multiple fluoroscopic images provided for procedure. DAP: 0.51732 mGym2 Gycm2 uGym2 cGycm2 or equivalent. FINDINGS: Fluoroscopic images during retrograde pyelogram demonstrate contrast in the renal collecting system. There is dilation of the collecting system. No evidence of extravasation of contrast. No immediate co mplication identified. IMPRESSION: 1. No evidence for intraoperative complication. 2. Please see the operative/procedural note for further details. [facility], , 06/03/2024 11:45 AM
--- NOTE | 2024-06-03 11:47 | P.OP ---
Date of Procedure: 06/03/24 Preoperative Diagnosis: Left renal stone large, 3.7 cm Postoperative Diagnosis: Same Procedure(s) Performed: Cystoscopy, placement of a left ureteral occluding balloon catheter, percutaneous nephrostomy access, percutaneous nephrostolithotomy large with ul trasound, placement of 10J Estonian nephrostomy Anesthesia: LAURENCE Surgeon: Landry Gardiner Estimated Blood Loss (ml): 50 Pathology: other Condition: stable (Stone) Disposition: PACU Indications for Procedure: The patient is 69. He had hematuria. Evaluation identified a very large renal pelvic stone and a smaller left lower pole calyceal stone total diameter about 3.5 cm. He comes for percutaneous nephrostolithotomy the risks and complications have been outlined. Description of Procedure: Patient brought to the operating suite. Preoperative KUB shows a large 3.7 cm renal pelvic stone on the left. On the transport gurney is given a general anesthetic. He is placed in a frog position with a sterile prep and drape. Cystoscopy Foroblique lens and 21 Estonian sheath identifies a nonobstructing prostate. The trigone was normal. The left renal orifice is identified and intubated with a 5 Estonian occluding balloon catheter passed up into the renal pelvis the cystoscope was removed. A 16 Estonian Lim is placed and secured to the ureteral catheter The patient is placed in a prone position with care Roberto Carlos and extremities. A sterile prep and drape was administered. Percutaneous access is performed by myself and will be dictated separately. After the nephrostomy tube sheath is placed in the left upper pole calyx I introduced the rigid scope into the collecting system and remove clot and identify the large renal pelvic stone. With ultrasonic therapy the stone was broken into smaller pieces of which are mostly suctioned out some of which are grasped with the grasping forceps and r emoved. Stone is sent to pathology. After all the visible stones from the renal pelvis is removed I then passed the flexible nephroscope throughout the collecting system. With a stone basket, 1.9 Estonian I basketed smaller fragments that have broken off of the stone from ultrasound. I then do an intraoperative nephrostogram to make sure I have entered each calyx and I have. Look 1 more time throughout the collecting system and there is no significant calculi remaining. I then passed a 10 Estonian J nephrostomy tube over the working wire into the collecting systems its position is identified fluoroscopically with some contrast injection. It is secured to the skin with 2-0 silk. The wound was dressed the patient is awakened and returned to recovery in good condition. Blood loss is less than 50 mL.
--- NOTE | 2024-06-03 11:50 | P.PCN ---
Date of Procedure: 06/03/24 Preoperative Diagnosis: Left renal stone large Postoperative Diagnosis: Same Procedure(s) Performed: Left percutaneous nephrostomy access Anesthesia: LAURENCE Surgeon: Landry Gardiner Estimated Blood Loss (ml): 0 Indications for Procedure: The patient is in the operating room today for a percutaneous nephrostolithotomy to a 3.7 cm left renal pelvic stone seen on KUB today. I will perform percutaneous access prior to the percutaneous nephrostolithotomy Description of Procedure: The patient is in the operating suite. He has been anesthetized. He is on the transport gurney in a prone position. Previously a left ureteral occluding balloon catheter was placed up into the UPJ secured to the Lim catheter. Sterile prep and drape was administered. Injected air through the ureteral occluding balloon catheter to outline the collecting system. It is apparent that an upper pole calyx will be the best access which is just above the 12th rib. Previous CT scan shows a safe and will avoid the lung or spleen. A small incision is made in the skin. I passed a Chiba needle into the left upper pole calyx confirmed fluoroscopically. Urine is drained out of the Chiba needle. The small [place] mandrel wire is passed through the needle down into the proximal ureter. I remove the Chiba needle and passed a 6 Honduran dilator over the [place] wire into the proximal ureter. The [place] mandrel wire and inner catheters are removed and I passed an 038 Super Stiff wire down the ureter. I then removed the 6 Honduran catheter and passed an 8-10 Honduran dilating catheter. After the catheter is removed a safety wire was passed down into the proximal ureter. I then removed the 8/10 Honduran dilating catheter and passed the nephrostomy tract dilating balloon and dilate the tract to 30 Honduran and introduced a working sheath in the collecting system.
[2024-06-03] MEDS: IV FLUID CONTINUATION 1,000 ML IV ONE (13:03)
[2024-06-03] MEDS: DEXTROSE 5%-0.45% NACL 1,000 ML IV SCH (13:22)
[2024-06-03] MEDS: KETOROLAC 15 MG/ML 1 ML VIAL IVP PRN (13:44)
[2024-06-03] MEDS: HYDROmorphone PCA 10 MG/50 ML BAG IV PRN (15:39)
[2024-06-03] MEDS: ATORVASTATIN 80 MG TAB PO SCH (22:47)
[2024-06-04 08:01] VITALS: BP 109/66; PULSE 62; RESP 17; TEMP 98.2
[2024-06-04] MEDS: METOPROLOL SUCCINATE (ER) 50 MG TAB.ER.24H PO SCH (09:57)
[2024-06-04] MEDS: DILTIAZEM CD 120 MG CAP.ER.24H PO SCH (09:57)
--- NOTE | 2024-06-04 10:37 | P.DS ---
Providers Expected date of discharge: 06/04/24 Attending physician: Landry Gardiner Primary care physician: Mary Rivas Hospital Course: On the day of admission, the patient underwent an uncomplicated left percutaneous nephrolithotomy. The perioperative course was unremarkable. On the first postoperative day, he reported that he was not experiencing pain, only mild flank discomfort. He was afebrile with stable vital signs. The Lim catheter was draining clear urine. The nephrostomy tube was draining blood- tinged urine without clots. The abdomen was soft and non-distended. Procedures: Left percutaneous nephrolithotomy on June 03, 2024. Plan - Discharge Summary Discharge Rx Participant: Yes New Discharge Prescriptions: New HYDROcodone/APAP 5-325MG [[place] 5-325] 1 - 2 tab PO Q6HR PRN #6 tab PRN Reason: Pain HYDROcodone/APAP 5-325MG [[place] 5-325] 1 - 2 tab PO Q6HR PRN #6 tab PRN Reason: Pain No Action Aspirin 81 mg PO DAILY Atorvastatin [Lipitor] 80 mg PO HS #30 tab Naproxen 500 mg PO BID Leuciene (Unk) 1 tab PO DAILY Creatine (Unk) 1 tab PO DAILY Diltiazem Cd [Cardizem CD] 120 mg PO DAILY #30 cap Metoprolol Succinate (ER) [Toprol Xl] 50 mg PO DAILY Glucosimine Chrondroitin 1 tab PO DAILY Discharge Medication List Aspirin 81 mg PO DAILY 01/10/22 [History] Atorvastatin [Lipitor] 80 mg PO HS #30 tab 01/19/22 [Rx] Diltiazem Cd [Cardizem CD] 120 mg PO DAILY #30 cap 01/19/22 [Rx] Creatine (Unk) 1 tab PO DAILY 05/28/24 [History] Glucosimine Chrondroitin 1 tab PO DAILY 05/28/24 [History] Leuciene (Unk) 1 tab PO DAILY 05/28/24 [History] Metoprolol Succinate (ER) [Toprol Xl] 50 mg PO DAILY 05/28/24 [History] Naproxen 500 mg PO BID 05/28/24 [History] HYDROcodone/APAP 5-325MG [[place] 5-325] 1 - 2 tab PO Q6HR PRN #6 tab 06/04/24 [Rx] HYDROcodone/APAP 5-325MG [[place] 5-325] 1 - 2 tab PO Q6HR PRN #6 tab 06/04/24 [Rx] Follow up Appointment(s)/Referral(s): Landry Gardiner MD [STAFF PHYSICIAN] - 06/08/24 Activity/Diet/Wound Care/Special Instructions: Discharge home with nephrostomy tube. Instruct patient how to drain nephrostomy tube bag. Drink plenty of fluids. Avoid strenuous activity. Hold aspirin and Naproxen until nephrostomy tube has been removed. May resume other home medications. Discharge Disposition: HOME SELF-CARE
== END 2024-06-04 12:30 | disposition home or self-care (01) ==
LOC: OR 07:44 → 4SSUR 11:22 → OR 06-04 12:30
PROVIDERS: ATTEND Urology
DX: N20.0 Calculus of kidney (principal); E78.5 Hyperlipidemia, unspecified; I10 Essential (primary) hypertension; G47.30 Sleep apnea, unspecified; Z95.1 Presence of aortocoronary bypass graft; Z87.442 Personal history of urinary calculi; Z79.82 Long term (current) use of aspirin
CPT/HCPCS: 82365; 50432; 74018; C1758 ×3; C1769 ×4; C2628; C1729 ×4; C1894; J1100; J2405; J1580; J0290; J1885; Q9967; J1171